=== PATIENT | male | born 1940 | race Caucasian/White ===

== ENCOUNTER 2018-09-20 11:47 | Inpatient (IN) ==
--- NOTE | 2018-09-20 12:00 | Emergency Department Note ---
SOB HPI - General Chief Complaint: Shortness of Breath/Dyspnea Stated Complaint: high BP, swelling, SOB Time Seen by Provider: 09/20/18 11:52 Source: patient Mode of arrival: wheelchair Limitations: no limitations - History of Present Illness I spoke with Dr. Gutiérrez regarding this patient who reports patient's primary care provider is Sam Chilel at the [facility]. Patient has morbid obesity, COPD, pulmonary fibrosis on a CT scan from January 2017, hypertension, diastolic failure. He had a echo and nuclear stress in spring 2016 which demonstrates right-sided failure with large enlarged IVC, no ischemia but suboptimal. Dr. Gutiérrez reports that patient has not been good at taking his furosemide 20 twice daily nor is chlorthalidone 25. He also takes potassium, metoprolol ER 25 daily, amlodipine 5 daily, losartan 100 daily, metformin 500, gabapentin. He is being sent because of 86% on room air, quite short of breath, 4+ edema up to and above the knee with weeping through his jeans. No history of being on anticoagulation or atrial fibrillation. EKG from May is being sent. Patient reports that he has had some gradual shortness of breath that has become more significant in the last 1 month but says that he can be active most the time out doing things. however, reports that he does a lot of sitting and sleeping in his chair. He has had swelling in the lower extremities for a year with a gradual increase in the amount and severity and the weepiness. He reports checking his blood pressures every morning and they are 125-130/70-75, blood sugars he checks less often and recent was 150. He believes his weight has not changed a whole lot usually around 280 but may be sometimes to 88. REVIEW OF SYSTEMS: Denies chest pain, cough, nausea, vomiting, diarrhea, constipation, hematochezia. A little weakness in his legs. Some mild dizziness or lightheadedness. Denies anxiety and depression although his thinks he may have some of both. He uses a CPAP at night without oxygen. - Related Data Previous Rx's Medication Instructions Recorded aspirin 81 mg tablet,delayed 81 mg PO QDAY #90 tab 03/15/15 release bisoprolol fumarate 5 mg tablet 5 mg PO QDAY #30 tab 03/29/15 gabapentin 300 mg capsule 300 mg PO Q8H 90 Days #270 cap 04/26/15 losartan 100 mg tablet 100 mg PO QDAY #90 tab 04/26/15 spironolactone 25 mg tablet 25 mg PO QDAY 90 Days #90 tab 04/26/15 metformin 1,000 mg tablet 500 mg PO QDAY 90 Days #45 tab 05/15/15 chlorhexidine gluconate 4 % 1 applic TOPICAL .COMPLEX #3800 ml 06/06/15 topical liquid furosemide 20 mg tablet 40 mg PO BID 90 Days #360 tab 06/28/15 dextromethorphan-guaifenesin 10 1 cap PO QDAY #30 cap 07/05/15 mg-200 mg capsule metolazone 2.5 mg tablet 2.5 mg PO QDAY #30 tab 08/09/15 Allergies Allergy/AdvReac Type Severity Reaction Status Date / Time Ygywsrs-Hof-Xew Reductase AdvReac Severe other Verified 09/20/18 11:53 Inhibitor Past Medical History - Past Medical History [facility] Narrative: Medical History (Last Updated 09/20/18 @ 12:49 by Jovanni Saleem DO) VALENTE on CPAP (Chronic) Pulmonary fibrosis (Chronic) COPD (chronic obstructive pulmonary disease) (Chronic) Shortness of Breath (Chronic) Venous stasis dermatitis (Chronic) Microalbuminuria (Chronic) Diastolic heart failure (Chronic) Morbid obesity (Chronic) Asymptomatic proteinuria (Chronic) Diabetic neuropathy (Chronic) Hyperlipidemia (Chronic) Prostate cancer (Chronic) Hypertension, essential (Chronic) Diabetes mellitus, type II (Chronic) Cellulitis and abscess (Resolved) Past Surgical History (Last Updated 09/20/18 @ 11:55 by Jovanni Saleem DO) History of prostate surgery (Resolved) Hx of foot surgery (Resolved) Family History father Essential hypertension Acute myocardial infarction Other Cellulitis and abscess History of prostate surgery Hx of foot surgery Medical history: Denies: atrial fibrillation, CVA, myocardial infarction - Social History smoking status: Former smoker Physical Exam Limitations: no limitations General appearance: alert, in no apparent distress Head: atraumatic, normocephalic Eye: Present: EOMI ENT: normal oropharynx Neck: Present: trachea midline. Absent: lymphadenopathy, thyromegaly Chest: Present: symmetric chest wall rise Respiratory: Present: normal lung sounds bilaterally. Absent: respiratory distress, wheezes, stridor, accessory muscle use, prolonged expiratory phase Cardiovascular: Present: regular rate, normal rhythm, systolic murmur. Absent: diastolic murmur Type of murmur: systolic, blowing (very soft) Location of murmur: LLSB Intensity of murmur: /6 Abdominal: Present: soft, other (very large). Absent: distention, tenderness, guarding, rebound, rigidity, organomegaly, mass Extremities: Present: pedal edema, pretibial edema (3/4 to knees and slight above.). Absent: calf tenderness Neurological: Present: alert, oriented X3 Psychiatric: Present: normal affect, normal mood Skin: Present: warm, dry Course Vital Signs Temperature 97.8 F 09/20/18 11:49 Pulse Rate 80 09/20/18 11:49 Respiratory Rate 28 H 09/20/18 11:49 Blood Pressure 155/72 09/20/18 11:49 Pulse Oximetry (%) 84 L 09/20/18 11:49 Temperature 97.8 F 09/20/18 11:49 Pulse Rate 96 H 09/20/18 17:01 Respiratory Rate 34 H 09/20/18 17:01 Blood Pressure 136/93 09/20/18 16:47 Pulse Oximetry (%) 89 L 09/20/18 17:01 Shortness of Breath/Dyspnea - MDM Narrative Medical decision making narrative: 12:33 PM - diastolic failure CHF exacerbation with hypoxia at 86%. We will provide oxygen, do labs and ABGs, x-ray, EKG. Furosemide 40 mg IV with placing catheter. - Lab Data Lab results reviewed: Yes I reviewed the patient's lab results. Result diagrams: 09/20/18 12:05 09/20/18 12:05 Lab Results 09/20/18 09/20/18 09/20/18 Range/Units 11:57 12:05 12:05 WBC 14.4 H (4.5-11.0) K/mcL RBC 6.26 H (4.50-5.90) M/mcL Hgb 14.5 (13.5-16.5) g/dL Hct 46.9 (41.0-55.0) % MCV 74.9 L (80.0-100.0) fL MCH 23.2 L (26.0-34.0) pg MCHC 30.9 L (31.0-36.0) g/dL RDW 20.6 H (11.5-14.5) % Plt Count 305 (140-440) K/mcL MPV 9.3 (7.4-10.4) fL Gran % 85.1 H (38.0-78.0) % Lymph % (Auto) 7.0 L (15.5-49.0) % Person % (Auto) 6.4 (1.0-12.0) % Eos % (Auto) 1.1 (0.0-7.0) % Baso % (Auto) 0.4 (0.0-2.0) % Gran # 12.2 H (1.8-8.0) K/mcL Lymph # (Auto) 1.0 L (1.5-4.8) K/mcL Person # (Auto) 0.9 (0.1-0.9) K/mcL Eos # (Auto) 0.2 (0.0-0.7) K/mcL Baso # (Auto) 0.1 (0.0-0.3) K/mcL D-Dimer 0.52 H (0.00-0.40) ug/ml VBG Lactic Acid (0.5-2.0) mmol/L Sodium 144 (133-145) mmol/L Potassium 4.1 (3.3-5.1) mmol/L Chloride 99 (96-108) mmol/L Carbon Dioxide 31 H (22-30) mmol/L Anion Gap 14.0 (8-16) BUN 20 (8-23) mg/dl Creatinine 1.0 (0.7-1.2) mg/dl GFR Calculation 73 Glucose 121 H (70-105) mg/dL Calcium 9.5 (8.6-10.4) mg/dl Magnesium 2.1 (1.6-2.5) mg/dL Total Bilirubin 0.3 (0.0-1.0) mg/dL AST 16 (0-37) U/l ALT 16 (0-40) U/l Alkaline Phosphatase 65 (39-117) U/L Total Creatine Kinase 56 (24-195) IU/L CK-MB (CK-2) 3.3 (0-4.9) ng/ml Troponin T (0-0.03) ng/ml NT-Pro-B Natriuret Pep 462.2 H (0-450) pg/ml Total Protein 7.5 (5.9-8.4) gm/dL Albumin 3.5 (3.2-5.2) gm/dL Globulin 4.0 H (2.2-3.7) gm/dL Albumin/Globulin Ratio 0.9 L (1.0-2.3) Procalcitonin (<0.10) ng/mL Urine Color Urine Appearance Urine pH (5.0-9.0) Ur Specific [place] (1.000-1.035) Urine Protein (NEG) mg/dL Urine Glucose (UA) (NEG) mg/dL Urine Ketones (NEG) mg/dL Urine Occult Blood (<0.03) mg/dL Urine Nitrate (NEG) Urine Bilirubin (NEG) mg/dL Urine Urobilinogen (NEG) mg/dL Ur Leukocyte Esterase (NEG) /uL Urine RBC (0-1) /hpf Urine WBC (0-4) /hpf Ur Squamous Epith Cells (0-4) /hpf Urine Bacteria (0) /hpf Urine Mucus (0) /hpf Ur Culture Indicated? 09/20/18 09/20/18 09/20/18 Range/Units 12:05 12:05 12:05 WBC (4.5-11.0) K/mcL RBC (4.50-5.90) M/mcL Hgb (13.5-16.5) g/dL Hct (41.0-55.0) % MCV (80.0-100.0) fL MCH (26.0-34.0) pg MCHC (31.0-36.0) g/dL RDW (11.5-14.5) % Plt Count (140-440) K/mcL MPV (7.4-10.4) fL Gran % (38.0-78.0) % Lymph % (Auto) (15.5-49.0) % Person % (Auto) (1.0-12.0) % Eos % (Auto) (0.0-7.0) % Baso % (Auto) (0.0-2.0) % Gran # (1.8-8.0) K/mcL Lymph # (Auto) (1.5-4.8) K/mcL Person # (Auto) (0.1-0.9) K/mcL Eos # (Auto) (0.0-0.7) K/mcL Baso # (Auto) (0.0-0.3) K/mcL D-Dimer (0.00-0.40) ug/ml VBG Lactic Acid 1.0 (0.5-2.0) mmol/L Sodium (133-145) mmol/L Potassium (3.3-5.1) mmol/L Chloride (96-108) mmol/L Carbon Dioxide (22-30) mmol/L Anion Gap (8-16) BUN (8-23) mg/dl Creatinine (0.7-1.2) mg/dl GFR Calculation Glucose (70-105) mg/dL Calcium (8.6-10.4) mg/dl Magnesium (1.6-2.5) mg/dL Total Bilirubin (0.0-1.0) mg/dL AST (0-37) U/l ALT (0-40) U/l Alkaline Phosphatase (39-117) U/L Total Creatine Kinase (24-195) IU/L CK-MB (CK-2) (0-4.9) ng/ml Troponin T 0.01 (0-0.03) ng/ml NT-Pro-B Natriuret Pep (0-450) pg/ml Total Protein (5.9-8.4) gm/dL Albumin (3.2-5.2) gm/dL Globulin (2.2-3.7) gm/dL Albumin/Globulin Ratio (1.0-2.3) Procalcitonin < 0.10 (<0.10) ng/mL Urine Color Urine Appearance Urine pH (5.0-9.0) Ur Specific [place] (1.000-1.035) Urine Protein (NEG) mg/dL Urine Glucose (UA) (NEG) mg/dL Urine Ketones (NEG) mg/dL Urine Occult Blood (<0.03) mg/dL Urine Nitrate (NEG) Urine Bilirubin (NEG) mg/dL Urine Urobilinogen (NEG) mg/dL Ur Leukocyte Esterase (NEG) /uL Urine RBC (0-1) /hpf Urine WBC (0-4) /hpf Ur Squamous Epith Cells (0-4) /hpf Urine Bacteria (0) /hpf Urine Mucus (0) /hpf Ur Culture Indicated? 09/20/18 Range/Units 13:19 WBC (4.5-11.0) K/mcL RBC (4.50-5.90) M/mcL Hgb (13.5-16.5) g/dL Hct (41.0-55.0) % MCV (80.0-100.0) fL MCH (26.0-34.0) pg MCHC (31.0-36.0) g/dL RDW (11.5-14.5) % Plt Count (140-440) K/mcL MPV (7.4-10.4) fL Gran % (38.0-78.0) % Lymph % (Auto) (15.5-49.0) % Person % (Auto) (1.0-12.0) % Eos % (Auto) (0.0-7.0) % Baso % (Auto) (0.0-2.0) % Gran # (1.8-8.0) K/mcL Lymph # (Auto) (1.5-4.8) K/mcL Person # (Auto) (0.1-0.9) K/mcL Eos # (Auto) (0.0-0.7) K/mcL Baso # (Auto) (0.0-0.3) K/mcL D-Dimer (0.00-0.40) ug/ml VBG Lactic Acid (0.5-2.0) mmol/L Sodium (133-145) mmol/L Potassium (3.3-5.1) mmol/L Chloride (96-108) mmol/L Carbon Dioxide (22-30) mmol/L Anion Gap (8-16) BUN (8-23) mg/dl Creatinine (0.7-1.2) mg/dl GFR Calculation Glucose (70-105) mg/dL Calcium (8.6-10.4) mg/dl Magnesium (1.6-2.5) mg/dL Total Bilirubin (0.0-1.0) mg/dL AST (0-37) U/l ALT (0-40) U/l Alkaline Phosphatase (39-117) U/L Total Creatine Kinase (24-195) IU/L CK-MB (CK-2) (0-4.9) ng/ml Troponin T (0-0.03) ng/ml NT-Pro-B Natriuret Pep (0-450) pg/ml Total Protein (5.9-8.4) gm/dL Albumin (3.2-5.2) gm/dL Globulin (2.2-3.7) gm/dL Albumin/Globulin Ratio (1.0-2.3) Procalcitonin (<0.10) ng/mL Urine Color Yellow Urine Appearance Clear Urine pH 5.0 (5.0-9.0) Ur Specific [place] 1.017 (1.000-1.035) Urine Protein Neg (NEG) mg/dL Urine Glucose (UA) >=500 A (NEG) mg/dL Urine Ketones Neg (NEG) mg/dL Urine Occult Blood Neg (<0.03) mg/dL Urine Nitrate Neg (NEG) Urine Bilirubin Neg (NEG) mg/dL Urine Urobilinogen Neg (NEG) mg/dL Ur Leukocyte Esterase Neg (NEG) /uL Urine RBC 2 H (0-1) /hpf Urine WBC 0 (0-4) /hpf Ur Squamous Epith Cells < 1 (0-4) /hpf Urine Bacteria 0 (0) /hpf Urine Mucus Few (0) /hpf Ur Culture Indicated? No - Radiology Data Radiology results reviewed: Yes I reviewed the patient's radiology results. - EKG Data EKG results narrative: No acute coronary syndrome findings. This ECG will be read by a public health social worker. Disposition Pt seen by ELECTROSTATIC POWDER COATING TECHNICIAN/PA only: No Clinical Impression: Acute on chronic diastolic CHF (congestive heart failure), Hypoxia, RBC microcytosis Summary: Patient initially diuresed close to 1800 cc. An additional furosemide 20 mg dose was given (initial dose was 40 mg) and an additional 900 cc was removed. Patient remained with hypoxia, i.e., 87-88% when he is placed on room air. Af ter much discussion, convincing, even pleading, patient agrees to stay. This is necessary because of his hypoxia, needing additional diuresis, monitoring electrolytes, etc. I spoke with Dr. Tom, hospitalist, who kindly accepts this patient's care. His white count of 14.4 does not seem remarkable in light of previous white blood cells in the 11-12 range consistently. He is not anemic but has a microcytosis. Patient labs are listed as above with no specific cardiac findings. BNP was 462. D-dimer was 0.56 which is appropriate for age and circumstance. Pro-calcitonin was unremarkable at less than 0.10. Lactic acid was 1.0. Glucose was 121. CO2 was 31. ABG demonstrates low oxygen, normal pH, elevated bicarb; indicating chronic CO2 retainer. Patient has a history of sleep apnea on CPAP. Disposition: Xfer As Inpt ([facility]) Condition: Fair Referrals: Isabel Tom MD [Primary Care Provider] -
[2018-09-20] MEDS ORDERED: IPRATROPIUM/ALBUTEROL 3 ML AMPUL.NEB NEB ONE (12:16)
--- NOTE | 2018-09-20 12:29 | XRay Report ---
CLINICAL INFORMATION: dyspnea COMPARISON: 07/13/2009 FINDINGS: Moderate cardiomegaly is unchanged. Mediastinum is unremarkable. Pulmonary vessels are mildly distended in the the upper lungs. No definite edema. There is minor bibasilar atelectasis but no infiltrate. Suboptimal inspiratory result noted IMPRESSION: Mild CHF or volume overload Interpreted and Authenticated by: Cristian Chamorro 09/20/18
[2018-09-20] MEDS ORDERED: FUROSEMIDE 40 MG/4 ML VIAL IV ONE (12:49)
[2018-09-20 12:55] LABS: Basophils # (Auto) 0.1 K/mcL (0.0-0.3); Basophils % (Auto) 0.4 % (0.0-2.0); Eosinophils # (Auto) 0.2 K/mcL (0.0-0.7); Eosinophils % (Auto) 1.1 % (0.0-7.0); Granulocytes % (Auto) 85.1 % (38.0-78.0); Mean Cell Volume 74.9 fL (80.0-100.0); Mean Corpuscular HGB Conc 30.9 g/dL (31.0-36.0); Monocytes # (Auto) 0.9 K/mcL (0.1-0.9); Monocytes % (Auto) 6.4 % (1.0-12.0); Platelet Count 305 K/mcL (140-440); RBC 6.26 M/mcL (4.50-5.90); Red Cell Distribution Width 20.6 % (11.5-14.5)
[2018-09-20 13:13] LABS: ALT/SGPT 16 U/l (0-40); Albumin 3.5 gm/dL (3.2-5.2); Albumin/Globulin Ratio 0.9 (1.0-2.3); Alkaline Phosphatase 65 U/L (39-117); Blood Urea Nitrogen 20 mg/dl (8-23); Creatine Kinase 56 IU/L (24-195); Creatine Kinase MB 3.3 ng/ml (0-4.9); proBNP 462.2 pg/ml (0-450)
[2018-09-20 13:49] LABS: Appearance,Urine CLEAR; Bacteria,Urine 0 /hpf (0); Bilirubin,Urine NEG (NEG); Color,Urine YELLOW; Glucose,Urine (UA) >=500 mg/dL (NEG); Leukocyte Esterase,Urine NEG /uL (NEG); Mucus,Urine FEW /hpf (0); Protein,Urine NEG (NEG); Specific Gravity,Urine 1.017 (1.000-1.035); Urine Blood NEG mg/dL (<0.03); Urine RBC 2 /hpf (0-1); Urine Squamous Epithelial Cell < 1 /hpf (0-4); Urine WBC 0 /hpf (0-4); Urobilinogen,Urine NEG (NEG)
[2018-09-20] MEDS ORDERED: POTASSIUM CHLORIDE 10 MEQ TABLET PO ONE ×2 (14:57→16:06)
[2018-09-20] MEDS ORDERED: FUROSEMIDE 20 MG/2 ML VIAL IV ONE (16:06)
[2018-09-20] MEDS ORDERED: ONDANSETRON 4 MG/2 ML VIAL IV PRN (18:57)
[2018-09-20] MEDS ORDERED: ACETAMINOPHEN 325 MG TABLET PO PRN (18:57)
[2018-09-20] MEDS ORDERED: HYDROcodone/APAP 5/325MG TABLET PO PRN (18:57)
[2018-09-20] MEDS ORDERED: NALOXONE HCL 0.4 MG/ML VIAL IV PRN (18:57)
[2018-09-20] MEDS: IPRATROPIUM/ALBUTEROL 3 ML AMPUL.NEB NEB SCH (19:51)
--- NOTE | 2018-09-20 20:40 | Internal Med History&Physical ---
Medical - H&P: HPI Patient information: Note initiated : 09/20/18 at 8:34 pm Service Date, if different from initiated Date: [] Patient: Yaakov Jacobson a 77 y/o M admitted on 09/20/18 for high BP, swelling, SOB. Chief Complaint: [] History of present illness: Mr. Jacobson is a 77 year old M with h/o pulmonary hypertensino, diastolic heart failure, notoriously non compliant with meds presents to the ER after being sent there by Dr Gutiérrez for evaluation of shortness of breath and hypoxia. This is a pleasant 77-year-old gentleman with history of multiple medical issues, comes to the hospital today after being seen in the cardiology clinic for evaluation of shortness of breath. He is also had edema in his lower extre mities and weeping lower extremity wounds. The patient notes he was here for his routine follow-up with cardiology when he was noted to be hypoxic, the patient reports his fingers being cyanotic, and him being short of breath he was therefore sent to the emergency room for further evaluation. The patient admits to being short of breath and having increased swelling over the last few days to weeks, he is noncompliant with diet, has a high salt intake and does not take his diuretics as prescribed. The patient admits to having runny nose and watery eyes, subjective sensation of fever going on for the last few days. He wears a compression stockings and his helps him manage his lower extre mities. I am not sure how much of his chronic medications he has been compliant with. [place] The patient denies any headache changes in vision difficulty in swallowing chest pain admits to having shortness of breath, denies any nausea vomiting abdominal pain diarrhea constipation denies any new joint pains, has lower extremity edema which is chronic and chronic weeping wounds. In the emergency room initially patient was afebrile however later developed a temperature of 100.6, heart rate 86 blood pressure 136/77 respirations anywhere between 28-35 saturating 8693% on 2 L of oxygen. ABG drawn shows pH of 7.39 PCO2 58 PO2 of 54 on 2 L of oxygen. Echocardiogram done in the past shows moderate to severe pulmonary hypertension, nuclear stress test was negative testing done within 2 years. Chest x-ray shows mild CHF versus fluid overload. EKG shows sinus rhythm poor R wave progression. WBC is elevated at 14.4 hemoglobin 14.5 platelets 305 sodium 144 potassium 4.1 bicarbonate 31 creatinine 1.0 glucose 121 calcitonin is less than 0.10 lactic acid 1.0 troponin is negative BNP mildly elevated at 462 UA is negative for UTI Given lower extrmity weeping edema/cellulitis, chf, fluid overload and hypoxia, pt is being admitted to the hospital for further management 2 rounds of diuretics with good response was done in the ER without much improvement in oxygenation. All systems: reviewed and no additional remarkable complaints except as stated (as per HPI rest negative.) Medical - H&P: H Medical history: Medical History (Last Updated 09/20/18 @ 12:49 by Jovanni Saleem DO) VALENTE on CPAP (Chronic) Pulmonary fibrosis (Chronic) COPD (chronic obstructive pulmonary disease) (Chronic) Shortness of Breath (Chronic) Venous stasis dermatitis (Chronic) Microalbuminuria (Chronic) Diastolic heart failure (Chronic) Morbid obesity (Chronic) Asymptomatic proteinuria (Chronic) Diabetic neuropathy (Chronic) Hyperlipidemia (Chronic) Prostate cancer (Chronic) Hypertension, essential (Chronic) Diabetes mellitus, type II (Chronic) Cellulitis and abscess (Resolved) Surgical history: Past Surgical History (Last Updated 09/20/18 @ 11:55 by Jovanni Saleem DO) History of prostate surgery (Resolved) Hx of foot surgery (Resolved) Pertinent family history: Family History father Essential hypertension Acute myocardial infarction Other Cellulitis and abscess History of prostate surgery Hx of foot surgery Medical - H&P: Meds Home Medications Medication Instructions Recorded Confirmed Type aspirin 81 mg tablet,delayed 81 mg PO QDAY #90 tab 03/15/15 09/20/18 Rx release gabapentin 300 mg capsule 300 mg PO Q8H 90 Days #270 cap 04/26/15 09/20/18 Rx losartan 100 mg tablet 100 mg PO QDAY #90 tab 04/26/15 09/20/18 Rx metformin 1,000 mg tablet 500 mg PO QDAY 90 Days #45 tab 05/15/15 09/20/18 Rx chlorhexidine gluconate 4 % 1 applic TOPICAL .COMPLEX #3800 ml 06/06/15 09/20/18 Rx topical liquid furosemide 20 mg tablet 40 mg PO BID 90 Days #360 tab 06/28/15 09/20/18 Rx Chlorthalidone 25 mg PO DAILY 09/20/18 09/20/18 History Dapagliflozin Propanediol [Farxiga] 5 mg PO DAILY 09/20/18 09/20/18 History Doxycycline Hyclate [Vibramycin] 100 mg PO BID 09/20/18 09/20/18 History Losartan Potassium 100 mg PO AC 09/20/18 09/20/18 History Metoprolol Succinate [Kapspargo 25 mg PO HS 09/20/18 09/20/18 History Sprinkle] Potassium Chloride [Kdur] 10 meq PO ONCE 09/20/18 09/20/18 History amLODIPine [Norvasc] 5 mg PO HS 09/20/18 09/20/18 History Allergies Allergy/AdvReac Type Severity Reaction Status Date / Time Rgttjdd-Lrv-Shv Reductase AdvReac Severe other Verified 09/20/18 11:53 Inhibitor Medical - H&P: Exam - Constitutional Vitals: Temp Pulse Resp BP Pulse Ox 100.6 F H 81 21 150/73 93 09/20/18 19:59 09/20/18 19:58 09/20/18 19:59 09/20/18 19:59 09/20/18 19:59 Exam: GENERAL: The patient is a well-developed, well-nourished in no apparent distress. Is alert and oriented x3. morbidly obese VITAL SIGNS: Reviewed and as noted elsewhere. HEENT: Head is normocephalic and atraumatic. Extraocular muscles are intact. Pupils are equal, round, and reactive to light. Nares appeared normal. Mouth a ppears any without lesions. Mucous membranes are moist. NECK: Normal to inspection, Supple, No lymphadenopathy or thyromegaly. LUNGS: Air entry equal on both sides, no wheezing, crackles or rhonchi noted. No accessory muscles of respiration HEART: Regular rate and rhythm normal, S1 and S2 heard, no Gallop, S3 or Rub Noted, No Gross murmur heard. ABDOMEN: Soft, nontender, and distended abdomen due to large pannus, Positive bowel sounds. No hepatosplenomegaly was noted. EXTREMITIES: No cyanosis, clubbing, rash, lesions ,edema ++++, [place] lower extremity erythema, blistering and weeping. I reviewed the picutres, taken on admission, pt legs were on compression stockings. NEUROLOGIC: Cranial nerves II through XII are grossly intact. Motor and Sensory System Grossly Intact PSYCHIATRIC: Normal affect, Normal Mood. Appropriate Behavior. SKIN: , No jaundice, No rash noted. Medical - H&P: Reslt - Labs CBC & Chem 7: 09/20/18 12:05 09/20/18 12:05 Labs: Short CBC 09/20/18 Range/Units 12:05 WBC 14.4 H (4.5-11.0) K/mcL Hgb 14.5 (13.5-16.5) g/dL Hct 46.9 (41.0-55.0) % Plt Count 305 (140-440) K/mcL BMP 09/20/18 12:05 Sodium 144 Potassium 4.1 Chloride 99 Carbon Dioxide 31 H BUN 20 Creatinine 1.0 Glucose 121 H Calcium 9.5 Cardiac Enzymes 09/20/18 09/20/18 Range/Units 12:05 12:05 Total Creatine Kinase 56 (24-195) IU/L CK-MB (CK-2) 3.3 (0-4.9) ng/ml Troponin T 0.01 (0-0.03) ng/ml Liver Function 09/20/18 Range/Units 12:05 Total Bilirubin 0.3 (0.0-1.0) mg/dL AST 16 (0-37) U/l ALT 16 (0-40) U/l Alkaline Phosphatase 65 (39-117) U/L Albumin 3.5 (3.2-5.2) gm/dL Urine 09/20/18 Range/Units 13:19 Urine Color Yellow Urine Appearance Clear Urine pH 5.0 (5.0-9.0) Ur Specific [place] 1.017 (1.000-1.035) Urine Protein Neg (NEG) mg/dL Urine Glucose (UA) >=500 A (NEG) mg/dL Medical - H&P: A/P - Narrative A/P Narrative: A/P Diastolic heart failure Acute Cor pulmonale Morbid obesity Cellulitis Edema with venous statsis NOn compliance with meds COPD VALENTE, on cpap DM Plan Admit to tele IV lasix, add metollozone before lasix aggressive diuresis In the past pt has responded well to antibiotics when his legs were infected, will start on zyvox 600mg bid for same, cellulitis likely explains the elevated wbc monitor I/O CPAP during sleep Resume home meds as appropriate, hold metformin. DVT hep sq Diet cardiac Full code. Medical - H&P: Qual - VTE Deep Vein Thrombosis/Pulmonary Embolism Present on Admission: No Social History - Tobacco smoking status: Former smoker - Alcohol alcohol intake frequency: does not drink - Substance use substance use type: does not use
[2018-09-20] MEDS: HEPARIN 5,000 UNIT/ML VIAL SQ SCH (21:10)
[2018-09-20] MEDS: LINEZOLID 600 MG TABLET PO SCH (21:10)
[2018-09-20] MEDS: 0.9 % SODIUM CHLORIDE 10 ML SYRINGE IV SCH (21:11)
[2018-09-20] MEDS: GABAPENTIN 300 MG CAPSULE PO SCH (21:11)
[2018-09-21] MEDS: IPRATROPIUM/ALBUTEROL 3 ML AMPUL.NEB NEB SCH ×4 (00:49→18:55)
[2018-09-21] MEDS: 0.9 % SODIUM CHLORIDE 10 ML SYRINGE IV SCH ×3 (05:44→20:42)
[2018-09-21] MEDS: GABAPENTIN 300 MG CAPSULE PO SCH ×3 (05:44→21:24)
[2018-09-21 06:22] LABS: ALT/SGPT 13 U/l (0-40); Albumin 3.2 gm/dL (3.2-5.2); Albumin/Globulin Ratio 0.8 (1.0-2.3); Alkaline Phosphatase 65 U/L (39-117); Bilirubin,Direct < 0.2 mg/dL (0.0-0.3); Blood Urea Nitrogen 23 mg/dl (8-23); Gamma Glutamyl Transpeptidase 62 U/L (8-61); Uric Acid 5.7 mg/dL (2.5-8.0)
[2018-09-21 06:26] LABS: Basophils # (Auto) 0 K/mcL (0.0-0.3); Basophils % (Auto) 0.2 % (0.0-2.0); Eosinophils # (Auto) 0.1 K/mcL (0.0-0.7); Eosinophils % (Auto) 0.7 % (0.0-7.0); Lymphocytes % (Auto) 6.8 % (15.5-49.0); Mean Cell Volume 75.4 fL (80.0-100.0); Mean Corpuscular HGB Conc 30.3 g/dL (31.0-36.0); Monocytes # (Auto) 1.1 K/mcL (0.1-0.9); Monocytes % (Auto) 7.3 % (1.0-12.0); Platelet Count 297 K/mcL (140-440); RBC 6.06 M/mcL (4.50-5.90); Red Cell Distribution Width 20.7 % (11.5-14.5)
[2018-09-21] MEDS: METOLAZONE 2.5 MG TABLET PO SCH ×2 (07:35→15:32)
[2018-09-21] MEDS: FUROSEMIDE 40 MG/4 ML VIAL IV SCH ×2 (07:51→16:18)
[2018-09-21] MEDS: ASPIRIN 81 MG TAB.CHEW PO SCH (09:05)
[2018-09-21] MEDS: LINEZOLID 600 MG TABLET PO SCH ×2 (09:05→20:41)
[2018-09-21] MEDS: LOSARTAN 50 MG TABLET PO SCH (09:05)
[2018-09-21] MEDS: HEPARIN 5,000 UNIT/ML VIAL SQ SCH ×2 (09:06→20:41)
[2018-09-21] MEDS ORDERED: DEXTROSE 31 GM ORAL.SUSP PO PRN (10:46)
[2018-09-21] MEDS ORDERED: DEXTROSE 50% 50 ML VIAL IV PRN (10:46)
[2018-09-21] MEDS: LEVOFLOXACIN 750 MG TABLET PO SCH (11:11)
[2018-09-21] MEDS: INSULIN LISPRO 1 UNIT/0.01 ML UNIT SQ SCH ×3 (11:24→20:44)
--- NOTE | 2018-09-21 12:21 | Internal Med Progress Note ---
Medical - PN: Subj Patient information: Note initiated : 09/21/18 at 12:17 pm Service Date, if different from initiated Date: [] Patient: Yaakov Jacobson a 77 y/o M admitted on 09/20/18 for high BP, swelling, SOB. Chief Complaint: [] Interval history: Mr. Jacobson is a 77 year old M with h/o pulmonary hypertensino, diastolic heart failure, notoriously non compliant with meds presents to the ER after being sent there by Dr Gutiérrez for evaluation of shortness of breath and hypoxia. This is a pleasant 77-year-old gentleman with history of multiple medical issues, comes to the hospital today after being seen in the cardiology clinic for evaluation of shortness of breath. He is also had edema in his lower extremities and weeping lower extremity wounds. The patient notes he was here for his routine follow-up with cardiology when he was noted to be hypoxic, the patient reports his fingers being cyanotic, and him being short of breath he was therefore sent to the emergency room for further evaluation. The patient admits to being short of breath and having increased swelling over the last few days to weeks, he is noncompliant with diet, has a high salt intake and does not take his diuretics as prescribed. The patient admits to having runny nose and watery eyes, subjective sensation of fever going on for the last few days. He wears a compression stockings and his helps him manage his lower extremities. I am not sure how much of his chronic medications he has been compliant with. [place] The patient denies any headache changes in vision difficulty in swallowing chest pain admits to having shortness of breath, denies any nausea vomiting abdominal pain diarrhea constipation denies any new joint pains, has lower extremity edema which is chronic and chronic weeping wounds. In the emergency room initially patient was afebrile however later developed a temperature of 100.6, heart rate 86 blood pressure 136/77 respirations anywhere between 28-35 saturating 8693% on 2 L of oxygen. ABG drawn shows pH of 7.39 PCO2 58 PO2 of 54 on 2 L of oxygen. Echocardiogram done in the past shows moderate to severe pulmonary hypertension, nuclear stress test was negative testing done within 2 years. Chest x-ray shows mild CHF versus fluid overload. EKG shows sinus rhythm poor R wave progression. WBC is elevated at 14.4 hemoglobin 14.5 platelets 305 sodium 144 potassium 4.1 bicarbonate 31 creatinine 1.0 glucose 121 calcitonin is less than 0.10 lactic acid 1.0 troponin is negative BNP mildly elevated at 462 UA is negative for UTI Given lower extrmity weeping edema/cellulitis, chf, fluid overload and hypoxia, pt is being admitted to the hospital for further management 2 rounds of diuretics with good response was done in the ER without much improvement in oxygenation. 09/21 Patient seen and examined, no acute overnight events. I spoke with his in length. She was concerned about the patient's change in behavior, over the last 3 months. Patient has been sleeping in his recliner. There has been progressive increase in his edema as well as noncompliance with medications. There is also have been change in the patient's behavior towards the patient's and which is more aggressive and agitated. There has been some deaths in the family recently. She is concerned that the patient may also be depressed Pertinent ROS: Denies headache, dizziness Denies chest pain, palpitations improved shortness of breath. Denies abdominal pain, nausea or vomiting. - Constitutional Vitals: Vital Signs Temp Pulse Resp BP Pulse Ox 98.6 F 74 16 119/68 92 09/21/18 07:18 09/21/18 07:25 09/21/18 07:25 09/21/18 07:18 09/21/18 07:39 Period Temp Pulse Resp BP Sys/Wood Pulse Ox Last 24 Hr 97.8 F-100.6 F 66-96 14-35 102-180/51-102 18-98 Intake and Output 09/20/18 09/21/18 09/21/18 21:59 05:59 13:59 Intake Total 1060 / 1060 860 / 860 Output Total 1050 / 1050 1675 / 1675 Balance 815 / -815 Weight 278 lb Intake & Output: Intake & Output 09/20/18 09/21/18 09/21/18 21:59 05:59 13:59 Intake Total 1060 / 1060 860 / 860 Output Total 1050 / 1050 1675 / 1675 Balance -815 / -815 Weight 278 lb Intake: Oral 1060 / 1060 860 / 860 Output: Urine Catheter Amount 1050 / 1050 1675 / 1675 Other: Meal Dinner Breakfast Percent of Meal Consumed 50% 100% Feeding Ability Independent Independent Urine Appearance Clear Uretheral (Paulino) Clear Clear Urine Color Pale Uretheral (Paulino) Pale Light Tanya Exam: Constitutional; Afebrile, cooperative, alert, not in distress. Eyes- No icterus, , No periorbital swelling Ears- Ext ear normal, hearing normal to conversation. Neck- Midline trachea, supple Respiratory system: Air Entry equal on both sides, No crackles or wheezing, no rhonchi. CVS- Rate rhythm regular, S1,S2 heard, no gallop, no rub. Abdomen- Soft nontender abdomen, no organomegaly, no tenderness, no guarding or rigidity, [employer]- AOOx3, moving all extremities, no gross focal deficit noted. Medical - PN: Obj Da - Labs CBC & Chem 7: 09/21/18 03:44 09/21/18 03:44 Labs: Abnormal Lab Results 09/21/18 09/21/18 09/20/18 03:44 03:44 13:19 WBC 14.4 H RBC 6.06 H MCV 75.4 L MCH 22.8 L MCHC 30.3 L RDW 20.7 H Gran % 85.0 H Lymph % (Auto) 6.8 L Gran # 12.2 H Lymph # (Auto) 1.0 L [place] # (Auto) 1.1 H D-Dimer Carbon Dioxide 31 H Glucose 121 H Phosphorus 5.0 H GGT 62 H NT-Pro-B Natriuret Pep Globulin 3.9 H Albumin/Globulin Ratio 0.8 L Urine Glucose (UA) >=500 A Urine RBC 2 H 09/20/18 09/20/18 09/20/18 12:05 12:05 11:57 WBC 14.4 H RBC 6.26 H MCV 74.9 L MCH 23.2 L MCHC 30.9 L RDW 20.6 H Gran % 85.1 H Lymph % (Auto) 7.0 L Gran # 12.2 H Lymph # (Auto) 1.0 L [place] # (Auto) D-Dimer 0.52 H Carbon Dioxide 31 H Glucose 121 H Phosphorus GGT NT-Pro-B Natriuret Pep 462.2 H Globulin 4.0 H Albumin/Globulin Ratio 0.9 L Urine Glucose (UA) Urine RBC Meds: Medications Acetaminophen (Tylenol) 650 mg PO Q6HP PRN PRN Reason: PAIN/FEVER > 101 Hydrocodone Bitart/Acetaminophen (Rogers 5/325mg) 1 tab PO Q4HP PRN PRN Reason: pain not controlled with APAP. Albuterol/Ipratropium (Duoneb) 3 ml NEB Q6HRT [facility] Last Admin: 09/21/18 07:21 Dose: 3 ml Documented by: Aspirin (Aspirin) 81 mg PO DAILY [facility] Last Admin: 09/21/18 09:05 Dose: 81 mg Documented by: Dextrose (Dextrose 50%) 0 ml IV UD PRN PRN Reason: Hypoglycemia Diagnostic Test (Pha) (Accu-Chek) 1 each FS [facility] Last Admin: 09/21/18 11:22 Dose: 1 each Documented by: Furosemide (Lasix) 40 mg IV BIDD [facility] Last Admin: 09/21/18 07:51 Dose: 40 mg Documented by: Gabapentin (Neurontin) 300 mg PO Q8 [facility] Last Admin: 09/21/18 05:44 Dose: 300 mg Documented by: Glucose (Insta-Glucose) 15 gm PO PRN PRN PRN Reason: Hypoglycemia Heparin Sodium (Porcine) (Heparin) 5,000 unit SQ Q12 [facility] Last Admin: 09/21/18 09:06 Dose: 5,000 unit Documented by: Insulin Human Lispro (Humalog) 0 unit SQ [facility]; Protocol Last Admin: 09/21/18 11:24 Dose: 2 units Documented by: Levofloxacin (Levaquin) 750 mg PO DAILY [facility] Last Admin: 09/21/18 11:11 Dose: 750 mg Documented by: Linezolid (Zyvox) 600 mg PO Q12 [facility] Last Admin: 09/21/18 09:05 Dose: 600 mg Documented by: Losartan Potassium (Cozaar) 100 mg PO DAILY [facility] Last Admin: 09/21/18 09:05 Dose: 100 mg Documented by: Metolazone (Zaroxolyn) 2.5 mg PO BID@0730,1530 [facility] Last Admin: 09/21/18 07:35 Dose: 2.5 mg Documented by: Naloxone HCl (Narcan) 0.1 mg IV Q2MIN PRN PRN Reason: Opiate Reversal Ondansetron HCl (Zofran) 4 mg IV Q4HP PRN PRN Reason: Nausea And Vomiting Pneumococcal Polyvalent Vaccine (Pneumovax 23) 0.5 ml IM .ONCE ONE Stop: 09/22/18 10:01 Sodium Chloride (Saline Flush) 10 ml IV Q8 [facility] Last Admin: 09/21/18 05:44 Dose: 10 ml Documented by: Medical - PN: A/P - Time Spent With Patient Total time spent is greater than 50% in coordination of care (as documented) at patient's floor/unit and/or counseling patient: - Narrative A/P Narrative: A/P Diastolic heart failure Acute Cor pulmonale Morbid obesity Cellulitis Edema with venous stasis Non compliance with meds COPD VALENTE, on cpap DM Plan monitor on tele IV lasix, add metolazone before lasix for aggressive diuresis PO zyvox and levoflox for cellulitis for now, wound care to follow continue home med may need anti depressants, but givne that he is on zyvox, will need to be started after this round of medications is complete monitor I/O CPAP during sleep Resume home meds as appropriate, hold metformin. DVT hep sq Diet cardiac Full code. Medical - PN: Qual - VTE Deep Vein Thrombosis/Pulmonary Embolism Present on Admission: No
--- NOTE | 2018-09-21 17:33 | General Surgery Consult Note ---
History of Present Illness Patient information: Note initiated : 09/21/18 at 5:28 pm Service Date, if different from initiated Date: [] Patient: Yaakov Jacobson 77 y/o M admitted on 09/20/18 for high BP, swelling, SOB. Chief Complaint: [] Consult date: 09/21/18 Requesting physician: Isabel Tom ([facility]) History of present illness: 77/M Seen in ICU 120-C. Patient admitted with multiple medical ( Cardiac / Respiratory ) issues and is currently undergoing appropriate medical management. 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 I saw the photographs of these areas and examined this patient along with Jessica ROBISON and in the presence of his family member in the room. Reviewed wound care recommendations and will follow him in hospital or at wound care clinic after discharge. Medications and Allergies Home Medications Medication Instructions Recorded Confirmed Type aspirin 81 mg tablet,delayed 81 mg PO QDAY #90 tab 03/15/15 09/20/18 Rx release gabapentin 300 mg capsule 300 mg PO Q8H 90 Days #270 cap 04/26/15 09/20/18 Rx losartan 100 mg tablet 100 mg PO QDAY #90 tab 04/26/15 09/20/18 Rx metformin 1,000 mg tablet 500 mg PO QDAY 90 Days #45 tab 05/15/15 09/20/18 Rx chlorhexidine gluconate 4 % 1 applic TOPICAL .COMPLEX #3800 ml 06/06/15 09/20/18 Rx topical liquid furosemide 20 mg tablet 40 mg PO BID 90 Days #360 tab 06/28/15 09/20/18 Rx RX: Chlorthalidone 25 mg PO DAILY 09/20/18 09/20/18 History RX: Dapagliflozin Propanediol 5 mg PO DAILY 09/20/18 09/20/18 History [Farxiga] RX: Doxycycline Hyclate 100 mg PO BID 09/20/18 09/20/18 History [Vibramycin] RX: Losartan Potassium 100 mg PO AC 09/20/18 09/20/18 History RX: Metoprolol Succinate 25 mg PO HS 09/20/18 09/20/18 History [Kapspargo Sprinkle] RX: Potassium Chloride [Kdur] 10 meq PO QAC 09/20/18 09/22/18 History RX: amLODIPine [Norvasc] 5 mg PO HS 09/20/18 09/20/18 History Anoro 1 puff INH HS 09/23/18 09/23/18 History RX: Levofloxacin [Levaquin] 750 mg PO DAILY #1 tab 09/23/18 Rx RX: Linezolid [Zyvox] 600 mg PO Q12 #6 tab 09/23/18 Rx Allergies Allergy/AdvReac Type Severity Reaction Status Date / Time Rqwlmsn-Ekx-Ixt Reductase AdvReac Severe other Verified 09/20/18 11:53 Inhibitor Exam Temp Pulse Resp BP Pulse Ox 98.1 F 82 16 121/62 94 09/21/18 17:09 09/21/18 13:20 09/21/18 17:09 09/21/18 17:09 09/21/18 17:09 - General physical appearance well developed, well nourished, no distress, obese - Eyes PERRL, normal ocular movement - ENT normal pinna, normal nares, normal mucosa, no congestion - Head Head exam IM: Present: atraumatic, normal inspection, normocephalic - Neck no masses, no venous distension - Cardiovascular Cardiovascular exam IM: Present: normal rate and rhythm - Respiratory normal expansion dullness: bilateral (Decreased air entry at lung bases) - Abdomen Abdomen: Present: soft, non tender, bowel sounds - Integumentary Present: other (Chronic dry scaly dermatitis of both legs and lymphedema of bilateral LE. NO OPEN SKIN ULCERS. NO necrosis of skin. NO drainage and NO odor.) - Neurologic Present: normal coordination, other (No gross neurological deficits. ) - Musculoskeletal Present: other (Examined patient in room in sitting and supine postures. NO gross neurological deficits noted. ) - Psychiatric Present: oriented to time, oriented to person, oriented to place, speech is normal, memory intact Results - Labs 09/23/18 05:16 09/23/18 05:16 Abnormal lab results 09/21/18 09/21/18 Range/Units 03:44 03:44 WBC 14.4 H (4.5-11.0) K/mcL RBC 6.06 H (4.50-5.90) M/mcL MCV 75.4 L (80.0-100.0) fL MCH 22.8 L (26.0-34.0) pg MCHC 30.3 L (31.0-36.0) g/dL RDW 20.7 H (11.5-14.5) % Gran % 85.0 H (38.0-78.0) % Lymph % (Auto) 6.8 L (15.5-49.0) % Gran # 12.2 H (1.8-8.0) K/mcL Lymph # (Auto) 1.0 L (1.5-4.8) K/mcL [place] # (Auto) 1.1 H (0.1-0.9) K/mcL Carbon Dioxide 31 H (22-30) mmol/L Glucose 121 H (70-105) mg/dL Phosphorus 5.0 H (2.7-4.5) mg/dL GGT 62 H (8-61) U/L Globulin 3.9 H (2.2-3.7) gm/dL Albumin/Globulin Ratio 0.8 L (1.0-2.3) Diabetes panel 09/21/18 Range/Units 03:44 Sodium 143 (133-145) mmol/L Potassium 3.8 (3.3-5.1) mmol/L Chloride 97 (96-108) mmol/L Carbon Dioxide 31 H (22-30) mmol/L BUN 23 (8-23) mg/dl Creatinine 1.2 (0.7-1.2) mg/dl Glucose 121 H (70-105) mg/dL Calcium 9.5 (8.6-10.4) mg/dl AST 14 (0-37) U/l ALT 13 (0-40) U/l Alkaline Phosphatase 65 (39-117) U/L Total Protein 7.1 (5.9-8.4) gm/dL Albumin 3.2 (3.2-5.2) gm/dL Triglycerides 116 (<150) mg/dl Calcium panel 09/21/18 Range/Units 03:44 Calcium 9.5 (8.6-10.4) mg/dl Phosphorus 5.0 H (2.7-4.5) mg/dL Albumin 3.2 (3.2-5.2) gm/dL Pituitary panel 09/21/18 Range/Units 03:44 Sodium 143 (133-145) mmol/L Potassium 3.8 (3.3-5.1) mmol/L Chloride 97 (96-108) mmol/L Carbon Dioxide 31 H (22-30) mmol/L BUN 23 (8-23) mg/dl Creatinine 1.2 (0.7-1.2) mg/dl Glucose 121 H (70-105) mg/dL Calcium 9.5 (8.6-10.4) mg/dl Adrenal panel 09/21/18 Range/Units 03:44 Sodium 143 (133-145) mmol/L Potassium 3.8 (3.3-5.1) mmol/L Chloride 97 (96-108) mmol/L Carbon Dioxide 31 H (22-30) mmol/L BUN 23 (8-23) mg/dl Creatinine 1.2 (0.7-1.2) mg/dl Glucose 121 H (70-105) mg/dL Calcium 9.5 (8.6-10.4) mg/dl Total Bilirubin 0.5 (0.0-1.0) mg/dL AST 14 (0-37) U/l ALT 13 (0-40) U/l Alkaline Phosphatase 65 (39-117) U/L Total Protein 7.1 (5.9-8.4) gm/dL Albumin 3.2 (3.2-5.2) gm/dL All other labs normal. Assessment and Plan (1) Dermatitis of lower extremity Assessment: Chronic dryness dermatitis of both LE with desquamation scales and post phlebitis changes. Plan: Continue ongoing medical management of co morbid medical conditions. LOCAL Skin Care: Cleanse with Chlorhexidine soap groins to toes daily. Pat dry with towel/ Skin Repair creme, moisturizing creme or coconut oil to be applied daily. AVOID customized circumferential compression unna boot or stockings to avoid constriction. May use Kerlix bandage and KIA wraps. If discharged f/u at the wound care center in ONE week. Status: Chronic Priority: Low
[2018-09-22] MEDS: IPRATROPIUM/ALBUTEROL 3 ML AMPUL.NEB NEB SCH ×3 (01:55→06:40)
[2018-09-22] MEDS: GABAPENTIN 300 MG CAPSULE PO SCH ×3 (05:30→21:02)
[2018-09-22] MEDS: 0.9 % SODIUM CHLORIDE 10 ML SYRINGE IV SCH ×3 (05:30→21:02)
[2018-09-22 06:10] LABS: ALT/SGPT 11 U/l (0-40); Albumin 3.1 gm/dL (3.2-5.2); Albumin/Globulin Ratio 0.8 (1.0-2.3); Alkaline Phosphatase 63 U/L (39-117); Bilirubin,Direct < 0.2 mg/dL (0.0-0.3); Blood Urea Nitrogen 29 mg/dl (8-23); Gamma Glutamyl Transpeptidase 56 U/L (8-61); Uric Acid 6.7 mg/dL (2.5-8.0)
[2018-09-22 06:22] LABS: Basophils # (Auto) 0 K/mcL (0.0-0.3); Basophils % (Auto) 0.1 % (0.0-2.0); Eosinophils # (Auto) 0.2 K/mcL (0.0-0.7); Eosinophils % (Auto) 1.6 % (0.0-7.0); Granulocytes % (Auto) 82.2 % (38.0-78.0); Lymphocytes # (Auto) 1.2 K/mcL (1.5-4.8); Lymphocytes % (Auto) 8.9 % (15.5-49.0); Mean Cell Volume 75.8 fL (80.0-100.0); Mean Corpuscular HGB Conc 30.2 g/dL (31.0-36.0); Monocytes % (Auto) 7.2 % (1.0-12.0); Platelet Count 293 K/mcL (140-440); RBC 5.81 M/mcL (4.50-5.90); Red Cell Distribution Width 20.6 % (11.5-14.5)
[2018-09-22] MEDS: METOLAZONE 2.5 MG TABLET PO SCH ×2 (07:53→15:15)
[2018-09-22] MEDS: INSULIN LISPRO 1 UNIT/0.01 ML UNIT SQ SCH ×4 (07:54→21:01)
[2018-09-22] MEDS: LEVOFLOXACIN 750 MG TABLET PO SCH (08:17)
[2018-09-22] MEDS: ASPIRIN 81 MG TAB.CHEW PO SCH (08:17)
[2018-09-22] MEDS: FUROSEMIDE 40 MG/4 ML VIAL IV SCH (08:17)
[2018-09-22] MEDS: LOSARTAN 50 MG TABLET PO SCH (08:17)
[2018-09-22] MEDS: HEPARIN 5,000 UNIT/ML VIAL SQ SCH ×2 (08:17→21:01)
[2018-09-22] MEDS: LINEZOLID 600 MG TABLET PO SCH ×2 (08:17→21:01)
[2018-09-22] MEDS ORDERED: PNEUMOCOCCAL 23-VAL P-SAC VAC 0.5 ML SYRINGE IM ONE (10:00)
[2018-09-22] MEDS ORDERED: IPRATROPIUM/ALBUTEROL 3 ML AMPUL.NEB NEB PRN ×2 (13:05→15:46)
--- NOTE | 2018-09-22 13:09 | Discharge Summary ---
Medical - DS: Prov Patient information: Note initiated : 09/22/18 at 1:08 pm Service Date, if different from initiated Date: [] Patient: Yaakov Jacobson 77 y/o M admitted on 09/20/18 for high BP, swelling, SOB. Chief Complaint: [] Date of admission: 09/20/18 18:46 Discharge date: 09/24/18 Primary care physician: Isabel Tom Consults: 09/20/18 17:24 Consult to Physician [CONS] Stat Comment: Consulting Provider: Isabel Tom Reason For Exam: Physician to Consult 09/21/18 08:18 Consult to Physician [CONS] Routine Comment: BLEs Consulting Provider: Daniel Macias Reason For Exam: Physician to Consult Medical - DS: Meds - Discharge Medications Prescriptions: Levofloxacin [Levaquin] 750 mg PO DAILY #1 tab Linezolid [Zyvox] 600 mg PO Q12 #6 tab Active and Home Medications: Home Medications aspirin 81 mg tablet,delayed release 81 mg PO QDAY #90 tab 03/15/15 [Rx Confirmed 09/20/18 Last Taken Unknown] gabapentin 300 mg capsule 300 mg PO Q8H 90 Days #270 cap 04/26/15 [Rx Confirmed 09/20/18 Last Taken Unknown] losartan 100 mg tablet 100 mg PO QDAY #90 tab 04/26/15 [Rx Confirmed 09/20/18 Last Taken Unknown] metformin 1,000 mg tablet 500 mg PO QDAY 90 Days #45 tab 05/15/15 [Rx Confirmed 09/20/18 Last Taken Unknown] chlorhexidine gluconate 4 % topical liquid 1 applic TOPICAL .COMPLEX #3800 ml 06/06/15 [Rx Confirmed 09/20/18 Last Taken Unknown] furosemide 20 mg tablet 40 mg PO BID 90 Days #360 tab 06/28/15 [Rx Confirmed 09/20/18 Last Taken Unknown] Chlorthalidone 25 mg PO DAILY 09/20/18 [History Confirmed 09/20/18 Last Taken Unknown] Dapagliflozin Propanediol [Farxiga] 5 mg PO DAILY 09/20/18 [History Confirmed 09/20/18 Last Taken Unknown] Doxycycline Hyclate [Vibramycin] 100 mg PO BID 09/20/18 [History Confirmed 09/20/18 Last Taken Unknown] Losartan Potassium 100 mg PO AC 09/20/18 [History Confirmed 09/20/18 Last Taken Unknown] Metoprolol Succinate [Kapspargo Sprinkle] 25 mg PO HS 09/20/18 [History Con firmed 09/20/18 Last Taken Unknown] Potassium Chloride [Kdur] 10 meq PO ONCE 09/20/18 [History Confirmed 09/20/18 Last Taken Unknown] amLODIPine [Norvasc] 5 mg PO HS 09/20/18 [History Confirmed 09/20/18 Last Taken Unknown] Medical - DS: Hosp Hospital course: Mr. Jacobson is a 77 year old M with h/o pulmonary hypertensino, diastolic heart failure, notoriously non compliant with meds presents to the ER after being sent there by Dr Gutiérrez for evaluation of shortness of breath and hypoxia. This is a pleasant 77-year-old gentleman with history of multiple medical issues, comes to the hospital today after being seen in the cardiology clinic for evaluation of shortness of breath. He is also had edema in his lower extremities and weeping lower extremity wounds. The patient notes he was here for his routine follow-up with cardiology when he was noted to be hypoxic, the patient reports his fingers being cyanotic, and him being short of breath he was therefore sent to the emergency room for further evaluation. The patient admits to being short of breath and having increased swelling over the last few days to weeks, he is noncompliant with diet, has a high salt intake and does not take his diuretics as prescribed. The patient admits to having runny nose and watery eyes, subjective sensation of fever going on for the last few days. He wears a compression stockings and his helps him manage his lower extremities. I am not sure how much of his chronic medications he has been compliant with. [place] The patient denies any headache changes in vision difficulty in swallowing chest pain admits to having shortness of breath, denies any nausea vomiting abdominal pain diarrhea constipation denies any new joint pains, has lower extremity edema which is chronic and chronic weeping wounds. In the emergency room initially patient was afebrile however later developed a temperature of 100.6, heart rate 86 blood pressure 136/77 respirations anywhere between 28-35 saturating 8693% on 2 L of oxygen. ABG drawn shows pH of 7.39 PCO2 58 PO2 of 54 on 2 L of oxygen. Echocardiogram done in the past shows moderate to severe pulmonary hypertension, nuclear stress test was negative testing done within 2 years. Chest x-ray shows mild CHF versus fluid overload. EKG shows sinus rhythm poor R wave progression. WBC is elevated at 14.4 hemoglobin 14.5 platelets 305 sodium 144 potassium 4.1 bicarbonate 31 creatinine 1.0 glucose 121 calcitonin is less than 0.10 lactic acid 1.0 troponin is negative BNP mildly elevated at 462 UA is negative for UTI Given lower extrmity weeping edema/cellulitis, chf, fluid overload and hypoxia, pt is being admitted to the hospital for further management 2 rounds of diuretics with good response was done in the ER without much improvement in oxygenation. 09/21 Patient seen and examined, no acute overnight events. I spoke with his in length. She was concerned about the patient's change in behavior, over the last 3 months. Patient has been sleeping in his recliner. There has been progressive increase in his edema as well as noncompliance with medications. There is also have been change in the patient's behavior towards the patient's and which is more aggressive and agitated. There has been some deaths in the family recently. She is concerned that the patient may also be depressed 09/22 patient seen examined, no acute overnight events, off oxygen now, wbc trending down no new complaints or concerns, slight rise in Creat to be monitored 09/23 Creatinine similar to yesterday, holding diuretics today. Nurse reports hypoxia this morning on his CPAP machine. Patient denies shortness of breath. Patient overall feels better, denies any chest pain coughing. 09/24 Feeling well. No overnight events. RT to assess for home oxygen. Stable for discharge. Discharge diagnosis: Acute on chronic diastolic heart failure acute cor pulmonale morbid obesity Secondary discharge diagnosis: Cellulitis venous stasis COPD VALENTE diabetes - Time Spent with Patient Total time spent providing and/or coordinating discharge services: Greater than 30 minutes Medical - DS: Exam - Constitutional Vitals: Vital Signs Temp Pulse Resp BP Pulse Ox 09/22/18 08:00 91 09/22/18 07:48 97.9 F 18 122/61 93 09/22/18 06:43 72 16 09/22/18 03:47 90 09/22/18 03:38 98.2 F 18 118/50 90 09/22/18 00:12 98.2 F 22 139/53 91 09/21/18 20:13 97.8 F 18 116/68 95 09/21/18 18:55 92 H 20 09/21/18 17:09 98.1 F 16 121/62 94 09/21/18 13:20 82 18 Intake and Output 09/21/18 09/22/18 09/22/18 21:59 05:59 13:59 Intake Total 360 / 1850 630 / 1850 650 / 650 Output Total 600 / 3775 1500 / 3775 Balance -240 / -1925 -870 / -1925 650 / 650 Intake: Oral 360 / 1850 630 / 1850 650 / 650 Output: Urine Catheter Amount 600 / 3775 1500 / 3775 Other: Meal Lunch Breakfast Percent of Meal Consumed 100% 100% Urine Appearance Clear Uretheral (Paulino) Clear Clear Urine Color Straw Uretheral (Paulino) Straw Dark Tanya Urine Odor Normal Weight 128.321 kg Medical - DS: Data Labs on day of discharge: Labs from last 24 hours 09/22/18 09/22/18 03:35 03:35 WBC 13.3 H RBC 5.81 Hgb 13.3 L Hct 44.0 MCV 75.8 L MCH 22.9 L MCHC 30.2 L RDW 20.6 H Plt Count 293 MPV 9.3 Gran % 82.2 H Lymph % (Auto) 8.9 L [place] % (Auto) 7.2 Eos % (Auto) 1.6 Baso % (Auto) 0.1 Gran # 10.9 H Lymph # (Auto) 1.2 L [place] # (Auto) 1.0 H Eos # (Auto) 0.2 Baso # (Auto) 0 Sodium 141 Potassium 3.6 Chloride 93 L Carbon Dioxide 35 H Anion Gap 13.0 BUN 29 H Creatinine 1.3 H GFR Calculation 53 Glucose 125 H Uric Acid 6.7 Calcium 9.0 Phosphorus 5.0 H Magnesium 2.1 Total Bilirubin 0.6 Direct Bilirubin < 0.2 GGT 56 AST 11 ALT 11 Alkaline Phosphatase 63 Lactate Dehydrogenase 189 Total Protein 6.8 Albumin 3.1 L Globulin 3.7 Albumin/Globulin Ratio 0.8 L Triglycerides 97 Medical - DS: A/P - Patient/Caregiver Discharge Instructions Activity: increase activity as tolerated Diet: Consistent Carbohydrate Additional Instructions: Home Oxygen per RT recommendations Prescriptions: Levofloxacin [Levaquin] 750 mg PO DAILY #1 tab Linezolid [Zyvox] 600 mg PO Q12 #6 tab - Follow up Plan Follow up with: Flora Chilel ARNP [Nurse Practitioner] - Daniel Macias MD [Physician] - Disposition: Xfer SNF Prognosis: Fair Rehab Potential: Fair I certify that the patient requires SNF services: Yes Overall status at discharge: patient is progressing back to baseline Medical - DS: Qual - VTE Deep Vein Thrombosis/Pulmonary Embolism Present on Admission: No
--- NOTE | 2018-09-22 14:09 | Internal Med Progress Note ---
Medical - PN: Subj Patient information: Note initiated : 09/22/18 at 2:06 pm Service Date, if different from initiated Date: [] Patient: Yaakov Jacobson a 77 y/o M admitted on 09/20/18 for high BP, swelling, SOB. Chief Complaint: [] Interval history: Mr. Jacobson is a 77 year old M with h/o pulmonary hypertensino, diastolic heart failure, notoriously non compliant with meds presents to the ER after being sent there by Dr Gutiérrez for evaluation of shortness of breath and hypoxia. This is a pleasant 77-year-old gentleman with history of multiple medical issues, comes to the hospital today after being seen in the cardiology clinic for evaluation of shortness of breath. He is also had edema in his lower extremities and weeping lower extremity wounds. The patient notes he was here for his routine follow-up with cardiology when he was noted to be hypoxic, the patient reports his fingers being cyanotic, and him being short of breath he was therefore sent to the emergency room for further evaluation. The patient admits to being short of breath and having increased swelling over the last few days to weeks, he is noncompliant with diet, has a high salt intake and does not take his diuretics as prescribed. The patient admits to having runny nose and watery eyes, subjective sensation of fever going on for the last few days. He wears a compression stockings and his helps him manage his lower extremities. I am not sure how much of his chronic medications he has been compliant with. [place] The patient denies any headache changes in vision difficulty in swallowing chest pain admits to having shortness of breath, denies any nausea vomiting abdominal pain diarrhea constipation denies any new joint pains, has lower extremity edema which is chronic and chronic weeping wounds. In the emergency room initially patient was afebrile however later developed a temperature of 100.6, heart rate 86 blood pressure 136/77 respirations anywhere between 28-35 saturating 8693% on 2 L of oxygen. ABG drawn shows pH of 7.39 PCO2 58 PO2 of 54 on 2 L of oxygen. Echocardiogram done in the past shows moderate to severe pulmonary hypertension, nuclear stress test was negative testing done within 2 years. Chest x-ray shows mild CHF versus fluid overload. EKG shows sinus rhythm poor R wave progression. WBC is elevated at 14.4 hemoglobin 14.5 platelets 305 sodium 144 potassium 4.1 bicarbonate 31 creatinine 1.0 glucose 121 calcitonin is less than 0.10 lactic acid 1.0 troponin is negative BNP mildly elevated at 462 UA is negative for UTI Given lower extrmity weeping edema/cellulitis, chf, fluid overload and hypoxia, pt is being admitted to the hospital for further management 2 rounds of diuretics with good response was done in the ER without much improvement in oxygenation. 09/21 Patient seen and examined, no acute overnight events. I spoke with his in length. She was concerned about the patient's change in behavior, over the last 3 months. Patient has been sleeping in his recliner. There has been progressive increase in his edema as well as noncompliance with medications. There is also have been change in the patient's behavior towards the patient's and which is more aggressive and agitated. There has been some deaths in the family recently. She is concerned that the patient may also be depressed 09/22 patient seen examined, no acute overnight events, off oxygen now, wbc trending down no new complaints or concerns, slight rise in Creat to be monitored Pertinent ROS: Denies headache, dizziness Denies chest pain, palpitations Denies cough or shortness of breath Denies abdominal pain, nausea or vomiting. - Constitutional Vitals: Vital Signs Temp Pulse Resp BP Pulse Ox 97.9 F 72 16 115/71 93 09/22/18 07:48 09/22/18 06:43 09/22/18 12:14 09/22/18 12:14 09/22/18 12:14 Period Temp Pulse Resp BP Sys/Wood Pulse Ox Last 24 Hr 97.8 F-98.2 F 72-92 16-22 108-139/50-71 90-95 Intake and Output 09/22/18 09/22/18 09/22/18 05:59 13:59 21:59 Intake Total 630 / 1850 650 / 650 Output Total 1500 / 3775 Balance -870 / -1925 650 / 650 Intake & Output: Intake & Output 09/22/18 09/22/18 09/22/18 05:59 13:59 21:59 Intake Total 630 / 1850 650 / 650 Output Total 1500 / 3775 Balance -870 / -1925 650 / 650 Intake: Oral 630 / 1850 650 / 650 Output: Urine Catheter Amount 1500 / 3775 Other: Meal Breakfast Percent of Meal Consumed 100% Urine Appearance Uretheral (Paulino) Clear Urine Color Uretheral (Paulino) Dark Tanya Exam: Constitutional; Afebrile, cooperative, alert, not in distress. Respiratory system: Air Entry equal on both sides, No crackles or wheezing, no rhonchi. CVS- Rate rhythm regular, S1,S2 heard, no gallop, no rub. Abdomen- Soft nontender abdomen, no organomegaly, no tenderness, no guarding or rigidity, TEXTILE CHEMIST- AOOx3, moving all extremities, no gross focal deficit noted. Medical - PN: Obj Da - Labs CBC & Chem 7: 09/22/18 03:35 09/22/18 03:35 Labs: Abnormal Lab Results 09/22/18 09/22/18 09/21/18 03:35 03:35 03:44 WBC 13.3 H RBC Hgb 13.3 L MCV 75.8 L MCH 22.9 L MCHC 30.2 L RDW 20.6 H Gran % 82.2 H Lymph % (Auto) 8.9 L Gran # 10.9 H Lymph # (Auto) 1.2 L [place] # (Auto) 1.0 H D-Dimer Chloride 93 L Carbon Dioxide 35 H 31 H BUN 29 H Creatinine 1.3 H Glucose 125 H 121 H Phosphorus 5.0 H 5.0 H GGT 62 H NT-Pro-B Natriuret Pep Albumin 3.1 L Globulin 3.9 H Albumin/Globulin Ratio 0.8 L 0.8 L Urine Glucose (UA) Urine RBC 09/21/18 09/20/18 09/20/18 03:44 13:19 12:05 WBC 14.4 H RBC 6.06 H Hgb MCV 75.4 L MCH 22.8 L MCHC 30.3 L RDW 20.7 H Gran % 85.0 H Lymph % (Auto) 6.8 L Gran # 12.2 H Lymph # (Auto) 1.0 L [place] # (Auto) 1.1 H D-Dimer Chloride Carbon Dioxide 31 H BUN Creatinine Glucose 121 H Phosphorus GGT NT-Pro-B Natriuret Pep 462.2 H Albumin Globulin 4.0 H Albumin/Globulin Ratio 0.9 L Urine Glucose (UA) >=500 A Urine RBC 2 H 09/20/18 09/20/18 12:05 11:57 WBC 14.4 H RBC 6.26 H Hgb MCV 74.9 L MCH 23.2 L MCHC 30.9 L RDW 20.6 H Gran % 85.1 H Lymph % (Auto) 7.0 L Gran # 12.2 H Lymph # (Auto) 1.0 L [place] # (Auto) D-Dimer 0.52 H Chloride Carbon Dioxide BUN Creatinine Glucose Phosphorus GGT NT-Pro-B Natriuret Pep Albumin Globulin Albumin/Globulin Ratio Urine Glucose (UA) Urine RBC Meds: Medications Acetaminophen (Tylenol) 650 mg PO Q6HP PRN PRN Reason: PAIN/FEVER > 101 Hydrocodone Bitart/Acetaminophen ([place] 5/325mg) 1 tab PO Q4HP PRN PRN Reason: pain not controlled with APAP. Albuterol/Ipratropium (Duoneb) 3 ml NEB Q6HP PRN PRN Reason: Shortness Of Breath Or Wheezing Aspirin (Aspirin) 81 mg PO DAILY [facility] Last Admin: 09/22/18 08:17 Dose: 81 mg Documented by: Dextrose (Dextrose 50%) 0 ml IV UD PRN PRN Reason: Hypoglycemia Diagnostic Test (Pha) (Accu-Chek) 1 each FS [facility] Last Admin: 09/22/18 12:00 Dose: 1 each Documented by: Furosemide (Lasix) 40 mg IV BIDD [facility] Last Admin: 09/22/18 08:17 Dose: 40 mg Documented by: Gabapentin (Neurontin) 300 mg PO Q8 [facility] Last Admin: 09/22/18 05:30 Dose: 300 mg Documented by: Glucose (Insta-Glucose) 15 gm PO PRN PRN PRN Reason: Hypoglycemia Heparin Sodium (Porcine) (Heparin) 5,000 unit SQ Q12 [facility] Last Admin: 09/22/18 08:17 Dose: 5,000 unit Documented by: Insulin Human Lispro (Humalog) 0 unit SQ [facility]; Protocol Last Admin: 09/22/18 12:00 Dose: 1 units Documented by: Levofloxacin (Levaquin) 750 mg PO DAILY [facility] Last Admin: 09/22/18 08:17 Dose: 750 mg Documented by: Linezolid (Zyvox) 600 mg PO Q12 [facility] Last Admin: 09/22/18 08:17 Dose: 600 mg Documented by: Losartan Potassium (Cozaar) 100 mg PO DAILY [facility] Last Admin: 09/22/18 08:17 Dose: 100 mg Documented by: Metolazone (Zaroxolyn) 2.5 mg PO BID@0730,1530 [facility] Last Admin: 09/22/18 07:53 Dose: 2.5 mg Documented by: Naloxone HCl (Narcan) 0.1 mg IV Q2MIN PRN PRN Reason: Opiate Reversal Ondansetron HCl (Zofran) 4 mg IV Q4HP PRN PRN Reason: Nausea And Vomiting Sodium Chloride (Saline Flush) 10 ml IV Q8 [facility] Last Admin: 09/22/18 05:30 Dose: 10 ml Documented by: Medical - PN: A/P - Time Spent With Patient Total time spent is greater than 50% in coordination of care (as documented) at patient's floor/unit and/or counseling patient: - Narrative A/P Narrative: A/P Diastolic heart failure Acute Cor pulmonale Morbid obesity Cellulitis Edema with venous stasis Non compliance with meds COPD VALENTE, on cpap DM KARLA Plan xfer to med surg IV lasix and metolozone for now, monitor urine ouput. still has edema feet PO zyvox and levoflox for cellulitis for now, wound care to follow continue home med Hold ARB, cholorothalidone. may need anti depressants, but givne that he is on zyvox, will need to be started after this round of medications is complete. CPAP during sleep, pts oxygen level drops even if he sleeps in a chair without oxygen/cpap Resume home meds as appropriate, hold metformin. DVT hep sq Diet cardiac Full code. Medical - PN: Qual - VTE Deep Vein Thrombosis/Pulmonary Embolism Present on Admission: No
[2018-09-22] MEDS ORDERED: NALOXONE HCL 0.4 MG/ML VIAL IV PRN (15:46)
[2018-09-22] MEDS ORDERED: ACETAMINOPHEN 325 MG TABLET PO PRN (15:46)
[2018-09-22] MEDS ORDERED: HYDROcodone/APAP 5/325MG TABLET PO PRN (15:46)
[2018-09-22] MEDS ORDERED: DEXTROSE 50% 50 ML VIAL IV PRN (15:46)
[2018-09-22] MEDS ORDERED: ONDANSETRON 4 MG/2 ML VIAL IV PRN (15:46)
[2018-09-22] MEDS ORDERED: DEXTROSE 31 GM ORAL.SUSP PO PRN (15:46)
[2018-09-22] MEDS ORDERED: FUROSEMIDE 40 MG/4 ML VIAL IV SCH (16:00)
[2018-09-22] MEDS ORDERED: POTASSIUM CHLORIDE 10 MEQ TABLET PO ONE (16:00)
[2018-09-22] MEDS: METOPROLOL SUCCINATE 25 MG TAB.XL.24H PO SCH (21:01)
[2018-09-22] MEDS: amLODIPine 5 MG TABLET PO SCH (21:01)
[2018-09-23] MEDS: 0.9 % SODIUM CHLORIDE 10 ML SYRINGE IV SCH ×3 (05:07→20:38)
[2018-09-23] MEDS: GABAPENTIN 300 MG CAPSULE PO SCH ×3 (05:07→20:34)
[2018-09-23 06:31] LABS: Basophils # (Auto) 0 K/mcL (0.0-0.3); Basophils % (Auto) 0.1 % (0.0-2.0); Eosinophils # (Auto) 0.2 K/mcL (0.0-0.7); Eosinophils % (Auto) 1.4 % (0.0-7.0); Granulocytes % (Auto) 84.8 % (38.0-78.0); Lymphocytes # (Auto) 1.1 K/mcL (1.5-4.8); Lymphocytes % (Auto) 7.6 % (15.5-49.0); Mean Cell Volume 74.9 fL (80.0-100.0); Mean Corpuscular HGB Conc 30.5 g/dL (31.0-36.0); Monocytes # (Auto) 0.9 K/mcL (0.1-0.9); Monocytes % (Auto) 6.1 % (1.0-12.0); Platelet Count 323 K/mcL (140-440); RBC 6.25 M/mcL (4.50-5.90); Red Cell Distribution Width 20.7 % (11.5-14.5)
[2018-09-23 07:10] LABS: ALT/SGPT 13 U/l (0-40); Albumin 3.3 gm/dL (3.2-5.2); Albumin/Globulin Ratio 0.8 (1.0-2.3); Alkaline Phosphatase 66 U/L (39-117); Bilirubin,Direct < 0.2 mg/dL (0.0-0.3); Blood Urea Nitrogen 36 mg/dl (8-23); Gamma Glutamyl Transpeptidase 63 U/L (8-61); Uric Acid 8.1 mg/dL (2.5-8.0)
[2018-09-23] MEDS ORDERED: METOLAZONE 2.5 MG TABLET PO SCH (07:30)
[2018-09-23] MEDS: POTASSIUM CHLORIDE 10 MEQ TABLET PO SCH (07:54)
[2018-09-23] MEDS: INSULIN LISPRO 1 UNIT/0.01 ML UNIT SQ SCH ×4 (07:55→20:38)
[2018-09-23 08:09] LABS: Anisocytosis 1+ (NONE SEEN); Band Neutrophils % 5 % (0-10); Basophils % (Manual) 1 % (0-2); Eosinophils % (Manual) 2 % (0-7); Lymphocytes % 7 % (15-49); Monocytes % (Manual) 7 % (1-12); Platelet Estimate NORMAL (NORMAL); RBC Morphology ABNORM (NORMAL); Segmented Neutrophils % 78 % (38-78)
[2018-09-23] MEDS: ASPIRIN 81 MG TAB.CHEW PO SCH (08:11)
[2018-09-23] MEDS: LINEZOLID 600 MG TABLET PO SCH ×2 (08:12→20:29)
[2018-09-23] MEDS: HEPARIN 5,000 UNIT/ML VIAL SQ SCH ×2 (08:12→20:28)
[2018-09-23] MEDS ORDERED: LEVOFLOXACIN 750 MG TABLET PO SCH (09:00)
--- NOTE | 2018-09-23 09:10 | Internal Med Progress Note ---
Medical - PN: Subj Patient information: Note initiated : 09/23/18 at 9:08 am Service Date, if different from initiated Date: [] Patient: Yaakov Jacobson a 77 y/o M admitted on 09/20/18 for high BP, swelling, SOB. Chief Complaint: [] Interval history: Mr. Jacobson is a 77 year old M with h/o pulmonary hypertensino, diastolic heart failure, notoriously non compliant with meds presents to the ER after being sent there by Dr Gutiérrez for evaluation of shortness of breath and hypoxia. This is a pleasant 77-year-old gentleman with history of multiple medical issues, comes to the hospital today after being seen in the cardiology clinic for evaluation of shortness of breath. He is also had edema in his lower extremities and weeping lower extremity wounds. The patient notes he was here for his routine follow-up with cardiology when he was noted to be hypoxic, the patient reports his fingers being cyanotic, and him being short of breath he was therefore sent to the emergency room for further evaluation. The patient admits to being short of breath and having increased swelling over the last few days to weeks, he is noncompliant with diet, has a high salt intake and does not take his diuretics as prescribed. The patient admits to having runny nose and watery eyes, subjective sensation of fever going on for the last few days. He wears a compression stockings and his helps him manage his lower extremities. I am not sure how much of his chronic medications he has been compliant with. [place] The patient denies any headache changes in vision difficulty in swallowing chest pain admits to having shortness of breath, denies any nausea vomiting abdominal pain diarrhea constipation denies any new joint pains, has lower extremity edema which is chronic and chronic weeping wounds. In the emergency room initially patient was afebrile however later developed a temperature of 100.6, heart rate 86 blood pressure 136/77 respirations anywhere between 28-35 saturating 8693% on 2 L of oxygen. ABG drawn shows pH of 7.39 PCO2 58 PO2 of 54 on 2 L of oxygen. Echocardiogram done in the past shows moderate to severe pulmonary hypertension, nuclear stress test was negative testing done within 2 years. Chest x-ray shows mild CHF versus fluid overload. EKG shows sinus rhythm poor R wave progression. WBC is elevated at 14.4 hemoglobin 14.5 platelets 305 sodium 144 potassium 4.1 bicarbonate 31 creatinine 1.0 glucose 121 calcitonin is less than 0.10 lactic acid 1.0 troponin is negative BNP mildly elevated at 462 UA is negative for UTI Given lower extrmity weeping edema/cellulitis, chf, fluid overload and hypoxia, pt is being admitted to the hospital for further management 2 rounds of diuretics with good response was done in the ER without much improvement in oxygenation. 09/21 Patient seen and examined, no acute overnight events. I spoke with his in length. She was concerned about the patient's change in behavior, over the last 3 months. Patient has been sleeping in his recliner. There has been progressive increase in his edema as well as noncompliance with medications. There is also have been change in the patient's behavior towards the patient's and which is more aggressive and agitated. There has been some deaths in the family recently. She is concerned that the patient may also be depressed 09/22 patient seen examined, no acute overnight events, off oxygen now, wbc trending down no new complaints or concerns, slight rise in Creat to be monitored 09/23 Creatinine similar to yesterday, holding diuretics today. Nurse reports hypoxia this morning on his CPAP machine. Patient denies shortness of breath. Patient overall feels better, denies any chest pain coughing. Review of Systems: denies headache/fever/chills/nausea/vomiting/chest or abdominal pain/cough/dysp corey/diarrhea. Otherwise see above. - Constitutional Vitals: Vital Signs Temp Pulse Resp BP Pulse Ox 98.1 F 73 24 H 120/68 92 09/23/18 06:54 09/23/18 06:54 09/23/18 06:54 09/23/18 06:54 09/23/18 07:16 Period Temp Pulse Resp BP Sys/Wood Pulse Ox Last 24 Hr 97.9 F-98.9 F 73-89 12-24 108-122/59-78 80-99 Intake and Output 09/22/18 09/23/18 09/23/18 21:59 05:59 13:59 Intake Total 360 / 1010 240 / 240 Output Total 1150 / 2450 1300 / 2450 Balance -1150 / -1440 -940 / -1440 240 / 240 Weight 126.779 kg Intake & Output: Intake & Output 09/22/18 09/23/18 09/23/18 21:59 05:59 13:59 Intake Total 360 / 1010 240 / 240 Output Total 1150 / 2450 1300 / 2450 Balance -1150 / -1440 -940 / -1440 240 / 240 Weight 126.779 kg Intake: Oral 360 / 1010 240 / 240 Output: Urine Catheter Amount 1150 / 2100 950 / 2100 Void Amount 350 / 350 Other: Meal Breakfast Percent of Meal Consumed 100% Urine Appearance Clear Clear Clear Uretheral (Paulino) Clear Clear Urine Color Straw Straw Straw Uretheral (Paulino) Dark Yellow Bright Yellow Urine Odor Normal Stool Size Large Large Stool Color Brown Stool Consistency Soft Soft # Bowel Movements 1 Exam: General: Alert, Awake, No acute Distress, obese Eyes/N/T: EOMI, Head/Neck: neck supple, CV: RRR, No murmurs, Pulm: mild bibase rales, no wheezing Abd: soft, nontender, +BS x4 Ext: no clubbing/cyanosis, b/l LE edema 1-2+, pedal 3+ Neuro: Alert, no focal deficits, moves all extremities, Skin: warm/dry Medical - PN: Obj Da - Labs CBC & Chem 7: 09/23/18 05:16 09/23/18 05:16 Labs: Abnormal Lab Results 09/23/18 09/23/18 09/23/18 05:16 05:16 05:16 WBC 14.8 H RBC 6.25 H Hgb MCV 74.9 L MCH 22.8 L MCHC 30.5 L RDW 20.7 H Gran % 84.8 H Lymph % (Auto) 7.6 L Gran # 12.6 H Lymph # (Auto) 1.1 L [place] # (Auto) Lymphocytes % 7 L RBC Morphology Abnorm A Anisocytosis 1+ A Microcytosis 1+ A D-Dimer Chloride 90 L Carbon Dioxide 35 H BUN 36 H Creatinine 1.4 H Glucose 139 H Uric Acid 8.1 H Phosphorus GGT 63 H NT-Pro-B Natriuret Pep Albumin Globulin 3.9 H Albumin/Globulin Ratio 0.8 L Urine Glucose (UA) Urine RBC 09/22/18 09/22/18 09/21/18 03:35 03:35 03:44 WBC 13.3 H RBC Hgb 13.3 L MCV 75.8 L MCH 22.9 L MCHC 30.2 L RDW 20.6 H Gran % 82.2 H Lymph % (Auto) 8.9 L Gran # 10.9 H Lymph # (Auto) 1.2 L [place] # (Auto) 1.0 H Lymphocytes % RBC Morphology Anisocytosis Microcytosis D-Dimer Chloride 93 L Carbon Dioxide 35 H 31 H BUN 29 H Creatinine 1.3 H Glucose 125 H 121 H Uric Acid Phosphorus 5.0 H 5.0 H GGT 62 H NT-Pro-B Natriuret Pep Albumin 3.1 L Globulin 3.9 H Albumin/Globulin Ratio 0.8 L 0.8 L Urine Glucose (UA) Urine RBC 09/21/18 09/20/18 09/20/18 03:44 13:19 12:05 WBC 14.4 H RBC 6.06 H Hgb MCV 75.4 L MCH 22.8 L MCHC 30.3 L RDW 20.7 H Gran % 85.0 H Lymph % (Auto) 6.8 L Gran # 12.2 H Lymph # (Auto) 1.0 L [place] # (Auto) 1.1 H Lymphocytes % RBC Morphology Anisocytosis Microcytosis D-Dimer Chloride Carbon Dioxide 31 H BUN Creatinine Glucose 121 H Uric Acid Phosphorus GGT NT-Pro-B Natriuret Pep 462.2 H Albumin Globulin 4.0 H Albumin/Globulin Ratio 0.9 L Urine Glucose (UA) >=500 A Urine RBC 2 H 09/20/18 09/20/18 12:05 11:57 WBC 14.4 H RBC 6.26 H Hgb MCV 74.9 L MCH 23.2 L MCHC 30.9 L RDW 20.6 H Gran % 85.1 H Lymph % (Auto) 7.0 L Gran # 12.2 H Lymph # (Auto) 1.0 L [place] # (Auto) Lymphocytes % RBC Morphology Anisocytosis Microcytosis D-Dimer 0.52 H Chloride Carbon Dioxide BUN Creatinine Glucose Uric Acid Phosphorus GGT NT-Pro-B Natriuret Pep Albumin Globulin Albumin/Globulin Ratio Urine Glucose (UA) Urine RBC Meds: Medications Acetaminophen (Tylenol) 650 mg PO Q6HP PRN PRN Reason: PAIN/FEVER > 101 Hydrocodone Bitart/Acetaminophen ([place] 5/325mg) 1 tab PO Q4HP PRN PRN Reason: pain not controlled with APAP. Albuterol/Ipratropium (Duoneb) 3 ml NEB Q6HP PRN PRN Reason: Shortness Of Breath Or Wheezing Amlodipine Besylate (Norvasc) 5 mg PO [facility] Last Admin: 09/22/18 21:01 Dose: 5 mg Documented by: Aspirin (Aspirin) 81 mg PO DAILY [facility] Last Admin: 09/23/18 08:11 Dose: 81 mg Documented by: Dextrose (Dextrose 50%) 0 ml IV UD PRN PRN Reason: Hypoglycemia Diagnostic Test (Pha) (Accu-Chek) 1 each FS [facility] Last Admin: 09/23/18 07:50 Dose: 1 each Documented by: Gabapentin (Neurontin) 300 mg PO Q8 [facility] Last Admin: 09/23/18 05:07 Dose: 300 mg Documented by: Glucose (Insta-Glucose) 15 gm PO PRN PRN PRN Reason: Hypoglycemia Heparin Sodium (Porcine) (Heparin) 5,000 unit SQ Q12 [facility] Last Admin: 09/23/18 08:12 Dose: 5,000 unit Documented by: Insulin Human Lispro (Humalog) 0 unit SQ [facility]; Protocol Last Admin: 09/23/18 07:55 Dose: 1 mg Documented by: Levofloxacin (Levaquin) 750 mg PO DAILY [facility] Last Admin: 09/23/18 08:11 Dose: 750 mg Documented by: Linezolid (Zyvox) 600 mg PO Q12 [facility] Last Admin: 09/23/18 08:12 Dose: 600 mg Documented by: Metoprolol Succinate (Toprol Xl) 25 mg PO [facility] Last Admin: 09/22/18 21:01 Dose: 25 mg Documented by: Naloxone HCl (Narcan) 0.1 mg IV Q2MIN PRN PRN Reason: Opiate Reversal Ondansetron HCl (Zofran) 4 mg IV Q4HP PRN PRN Reason: Nausea And Vomiting Potassium Chloride (Kdur) 10 meq PO QAMCC [facility] Last Admin: 09/23/18 07:54 Dose: 10 meq Documented by: Sodium Chloride (Saline Flush) 10 ml IV Q8 [facility] Last Admin: 09/23/18 05:07 Dose: 10 ml Documented by: Medical - PN: A/P - Time Spent With Patient Total time spent is greater than 50% in coordination of care (as documented) at patient's floor/unit and/or counseling patient: - Narrative A/P Narrative: A: *acute on chronic Diastolic heart failure: improving *Acute Cor pulmonale/PAH: *Hypoxia: 2/2 above plus underlying copd and obesity, increased need this morning, f/u echo & cxr *Morbid obesity: *Cellulitis: *Edema w/Venous stasis *Non compliance with meds *COPD (not on home O2): home med Anoro Ellipta *VALENTE, on bipap@home: *DM: *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 -wound care to follow -may need anti depressants, but givne that he is on zyvox, will need to be started after this round of medications is complete. -CPAP during sleep, pts oxygen level drops even if he sleeps in a chair without oxygen/cpap -cont home norvasc 5mg, torpol, hold losartan for karla -SSI, holding metformin for now -pt/ot -ppx: hep sq Diet cardiac Full code. Medical - PN: Qual - VTE Deep Vein Thrombosis/Pulmonary Embolism Present on Admission: No
--- NOTE | 2018-09-23 10:42 | XRay Report ---
CLINICAL INFORMATION: chf COMPARISON: 09/20/2018 and 05/13/2005 x-rays FINDINGS: Heart is minimally enlarged. Mediastinum is unremarkable. Upper lobe pulmonary vessels demonstrate mild redistribution compared to a baseline x-ray from 05/13/2005. No edema. Minor bibasilar atelectasis noted. No infiltrates. Tiny right pleural effusion noted IMPRESSION: Minimal CHF or volume overload Interpreted and Authenticated by: Cristian Chamorro 09/23/18
[2018-09-23] MEDS: amLODIPine 5 MG TABLET PO SCH (20:29)
[2018-09-23] MEDS: METOPROLOL SUCCINATE 25 MG TAB.XL.24H PO SCH (20:29)
[2018-09-23] MEDS ORDERED: UMECLIDINIUM PO SCH (21:00)
[2018-09-23] MEDS ORDERED: ANORO INH SCH (21:00)
[2018-09-23] MEDS ORDERED: VILANTEROL PO SCH (21:00)
[2018-09-24] MEDS: IPRATROPIUM/ALBUTEROL 3 ML AMPUL.NEB NEB SCH (03:11)
[2018-09-24 06:10] LABS: ALT/SGPT 14 U/l (0-40); Albumin 3.2 gm/dL (3.2-5.2); Albumin/Globulin Ratio 0.8 (1.0-2.3); Alkaline Phosphatase 63 U/L (39-117); Bilirubin,Direct < 0.2 mg/dL (0.0-0.3); Blood Urea Nitrogen 31 mg/dl (8-23); Gamma Glutamyl Transpeptidase 63 U/L (8-61); Uric Acid 8.2 mg/dL (2.5-8.0)
[2018-09-24 06:21] LABS: Basophils # (Auto) 0 K/mcL (0.0-0.3); Basophils % (Auto) 0.2 % (0.0-2.0); Eosinophils # (Auto) 0.2 K/mcL (0.0-0.7); Eosinophils % (Auto) 1.4 % (0.0-7.0); Granulocytes % (Auto) 83.8 % (38.0-78.0); Lymphocytes # (Auto) 0.8 K/mcL (1.5-4.8); Lymphocytes % (Auto) 7.2 % (15.5-49.0); Mean Cell Volume 75.4 fL (80.0-100.0); Mean Corpuscular HGB Conc 30.5 g/dL (31.0-36.0); Monocytes # (Auto) 0.9 K/mcL (0.1-0.9); Monocytes % (Auto) 7.4 % (1.0-12.0); Platelet Count 297 K/mcL (140-440); RBC 6.21 M/mcL (4.50-5.90)
[2018-09-24] MEDS: 0.9 % SODIUM CHLORIDE 10 ML SYRINGE IV SCH (06:26)
[2018-09-24] MEDS: GABAPENTIN 300 MG CAPSULE PO SCH (06:26)
[2018-09-24] MEDS: POTASSIUM CHLORIDE 10 MEQ TABLET PO SCH (07:58)
[2018-09-24] MEDS: INSULIN LISPRO 1 UNIT/0.01 ML UNIT SQ SCH ×2 (07:58→11:32)
[2018-09-24] MEDS: ASPIRIN 81 MG TAB.CHEW PO SCH (09:23)
[2018-09-24] MEDS: LINEZOLID 600 MG TABLET PO SCH (09:23)
[2018-09-24] MEDS: HEPARIN 5,000 UNIT/ML VIAL SQ SCH (09:23)
== END 2018-09-24 12:40 | DRG 291 ==
LOC: ED 11:47 → ICU 18:45 → MEDSUR 09-22 23:31
PROVIDERS: ADMIT Internal Medicine; ATTEND Internal Medicine

== ENCOUNTER 2021-10-15 16:17 | Inpatient (IN) ==
[2021-10-15] MEDS ORDERED: IOPAMIDOL 100 ML BOTTLE IV ONE (16:18)
[2021-10-15] MEDS ORDERED: VANCOMYCIN 1,500 MG in 0.9 % SODIUM CHLORIDE 500 ML IV ONE (16:53)
[2021-10-15] MEDS ORDERED: ACETAMINOPHEN 1,000 MG/100 ML BAG IV ONE (16:53)
--- NOTE | 2021-10-15 16:56 | Emergency Department Note ---
ED Note Addendum Note Addendum: I performed a brief screening exam and placed orders to facilitate patient care, anticipating a more comprehensive exam by another provider or me later in the patient's emergency department stay. Patient is complaining of shortness of breath. At the time of my initial evaluation, he is awake and follows commands but unable to speak. He is quite tachypneic.
[2021-10-15] MEDS ORDERED: CEFEPIME 2 GM VIAL IV ONE (17:25)
[2021-10-15] MEDS ORDERED: 0.9 % SODIUM CHLORIDE 1,000 ML IV ONE ×2 (17:30)
--- NOTE | 2021-10-15 17:32 | XRay Report ---
INDICATION: pneumonia TECHNIQUE: AP portable semiupright chest x-ray COMPARISON: Previous chest x-rays dated 10/15/2021, 02/26/2021, 05/29/2020 FINDINGS: Lungs:There are patchy infiltrates in both lungs. These are predominantly interstitial. Infiltrates appear slightly worse than on prior examination dated 10/15/2021 Appearance is consistent with pneumonia and atypical pneumonias are likely. This includes covid pneumonia. Heart, vascular:No significant cardiomegaly. Pulmonary vascularity is normal. No pulmonary edema or pulmonary congestion Mediastinum, victor manuel:No mediastinal widening. No hilar mass Pleura:No pleural fluid. No pleural-based mass or calcification Skeletal:Negative. IMPRESSION: 1. Increasing interstitial infiltrates bilaterally 2. Findings are consistent with atypical pneumonia and covid is possible Interpreted and Authenticated by: Cristian Rowland 10/15/21
[2021-10-15] MEDS ORDERED: IPRATROPIUM 2.5 ML AMPUL.NEB NEB ONE (17:33)
[2021-10-15] MEDS ORDERED: ALBUTEROL SULFATE 5 MG/ML NEB SOLUTION BOTTLE NEB ONE (17:33)
--- NOTE | 2021-10-15 17:46 | Emergency Department Note ---
HPI General Chief complaint: Shortness of Breath/Dyspnea Stated complaint: SOB Time Seen by Provider: 10/15/21 16:35 Source: other Mode of arrival: other History of Present Illness HPI Narrative: 81-year-old male with history of COPD on 3L oxygen hypertension diabetes PVD presents from [facility] with altered mentation shortness of breath. Was cultured at that facility given a dose of Rocephin. Labs at that facility did show white count of 20,000 left shift, hemoglobin 1.5, elevated BNP at 519, glucose 178, CO2 of 35, BUN of 37 and a creatinine of 1.5 GFR 46 a history of CKD. trop 0. Dimer was elevated 847. CXR mild pulmonary vascular congestion. COVID Flu rapid negative. Is is triple vax. twelve-lead EKG from the facility did show a sinus tachycardia at 106 bpm left axis deviation with baseline artifact however no ST elevations depressions T wave abnormalities noted. 1 L 0.9 NS, 2 g Rocephin. Hypoxic 70% placed on NRB by EMS, 100% on arrival to [place]. I did speak to the . States that patient does have an open wound to the left lateral foot. Missed his appointment today. Yesterday was complaining of feeling cold with chills. This morning did give him Tylenol. Appeared to be altered and so 911 was called and was taken to [place]. Related Data Home Medications Medication Instructions Recorded Confirmed spironolactone 50 mg tablet 50 mg PO QDAY 06/01/20 08/29/20 dapagliflozin 10 mg tablet 1 tab PO QDAY 10/15/21 10/15/21 ([facility]) famotidine 20 mg tablet 20 mg PO DAILY 10/15/21 10/15/21 gabapentin 300 mg capsule 300 mg PO BID 10/15/21 10/15/21 losartan 100 mg tablet 50 mg PO QDAY 10/15/21 10/15/21 torsemide 20 mg tablet 1 tab PO BID 10/15/21 10/15/21 Previous Rx's Medication Instructions Recorded aspirin 81 mg tablet,delayed 81 mg PO QDAY #90 tab 03/15/15 release donepezil 10 mg tablet (Aricept) 10 mg PO QDAY #90 tab 07/23/20 metformin 500 mg tablet,extended 1,000 mg PO QPM #180 tab 03/12/21 release 24 hr umeclidinium 62.5 mcg-vilanterol 1 inh INHALATION QDAY #60 each 12/10/20 25 mcg/actuation powdr for inhalation (Anoro Ellipta) sertraline 50 mg tablet 50 mg PO QDAY #30 tab 03/05/21 chlorthalidone 25 mg tablet 25 mg PO QDAY #100 tab 04/30/21 metoprolol succinate 25 mg capsule 25 mg PO HS #90 ea 04/30/21 sprinkle, ext. release 24 hr albuterol sulfate 90 mcg/actuation 2 inh INHALATION QID #3 each 05/22/21 breath activated powder inhaler,sensor Allergies Allergy/AdvReac Type Severity Reaction Status Date / Time umeclidinium Allergy Intermediate Diarrhea/runny Verified 08/29/20 12:02 [From Anoro Ellipta] nose vilanterol Allergy Intermediate Diarrhea/runny Verified 08/29/20 12:02 [From Anoro Ellipta] nose Nnrkozm-DCS-RxE Reductase AdvReac Severe other Verified 08/29/20 12:02 Inhibitor [Khzikxc-Qlx-Spx Reductase Inhibitor] Review of Systems ROS ROS Narrative: Unable to obtain secondary to patient's altered mentation [facility] Narrative Patient History Narrative: Narrative: Medical/Surgical/Family History All Active Problems Bladder neck contracture (Acute) Urinary retention (Acute) Prostate cancer (Acute) Malaise (Acute) Hypoxia (Acute) CHF (congestive heart failure) (Acute) Acute urinary retention (Acute) Incontinence overflow, urine (Acute) Hematuria (Acute) Acute urinary retention (Acute) Heart murmur (Chronic) Hypercarbia (Chronic) CHF (congestive heart failure) (Acute) Impaired oxygenation (Chronic) HTN (hypertension) (Chronic) Sleep apnea (Chronic) Cardiomegaly (Chronic) Bilateral leg edema (Chronic) Leg pain (Chronic) Peripheral neuropathy (Chronic) Insomnia (Chronic) Diastolic dysfunction (Chronic) Body mass index (BMI) 35 or more (Chronic) Chronic kidney disease, stage 2 (mild) (Chronic) Memory loss (Chronic) 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 monitor for now, get JENNFIER. Bilateral leg edema Body mass index (BMI) 35 or more Cardiomegaly Cellulitis and abscess doing well for now, start to wash area with chlorhexidine scrub daily Chronic kidney disease, stage 2 (mild) COPD (chronic obstructive pulmonary disease) Diabetes mellitus, type II a1c 6.8, slight improvement, pt wanting to stick to his 500mg qd regime, he has microalbuminuria, on luis not wanting to take statin. on asa Diabetic neuropathy on gabapentin, continue same, verify compliance Diastolic dysfunction Diastolic heart failure on lasix 40mg bid, and spironlactone 25mg qd getting worse, add metolazone 2.5mg 15 mins before lasix, every morning to help with diuresis. Heart murmur Loudest at the right upper sternal border but also present at the left upper sternal and left mid sternal borders History of peptic ulcer disease Remotely (history gathered 05/20/2020) HTN (hypertension) Hypercarbia HCO3 chronicly 36-38 (05-20-2020) Hyperlipidemia LDL 115, HDL 25, pt is uable to tolerate any statin, tried atorvastatin, but he self stopped, pt not wanting to go back. Hypertension, essential BP doing well, on bisoprol 5mg, losartan 100mg qd, on furosemide 40mg bid, spironolactone 25mg qd, continue same reassess 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 Idiopathic chronic venous hypertension of right lower extremity with ulcer Impaired oxygenation Insomnia Leg pain Memory loss Microalbuminuria noted on labs 03/21, on losartan 100, spironolactone also has anti proteinuric effect. Morbid obesity Obese VALENTE on CPAP no oxygen Peripheral neuropathy Prostate cancer Pulmonary fibrosis Shortness of Breath Sleep apnea On CPap Venous stasis dermatitis flakito lower extremities worsening due to increased fluid, using compression stockings, as well as diuretics lasix and adactone, metolazone added. Surgical History History of prostate surgery Hx of foot surgery right foot Family History father Essential hypertension Acute myocardial infarction Other Cellulitis and abscess History of prostate surgery Hx of foot surgery Social History Smoking Status: Former smoker Alcohol Intake Frequency: does not drink Substance Use: does not use Exam Narrative Narrative: (Please note that portions of this note may have been completed with a voice recognition program. Efforts were made to edit the dictations but occasionally words are mis-transcribed) CONSTITUTIONAL: Well-nourished well-hydrated elderly male, ill appearing. only opens eyes to verbal command, non verbal on my exam HEAD: Normocephalic. Atraumatic. EYES: EOMI. PERRL ENT: BPAP NECK: Supple. Trachea midline CARDIOVASCULAR: Adequate peripheral perfusion. S1-S2. Regular tachy 126 bpm. No murmurs rubs gallops. No JVD.+2 radial pulses bilaterally. +2 b/l pitting e shaunna with venous stasis skin changes PULMONARY: labored tachypneic with abdominal retractions. diminished BS b/l with faint b/l expiratory wheeze ABDOMINAL: Soft. Nondistended. Positive bowel sounds. Paulino in place draining yellow urine EXTREMITIES: No gross deformities. Moves all 4 extremities with good strength and tone. Skin: warm dry. no petechiae. however pallor. left lateral distal foot 2 mm opening with spontaneous moderate purulent drainage foul odor NEUROLOGY: Sensation is intact.GCS 9--E3 V1 M5 Course Vital Signs Vital signs: Vital Signs Temperature 39.1 C H 10/15/21 16:18 Pulse Rate 113 H 10/15/21 16:18 Respiratory Rate 38 H 10/15/21 16:18 Blood Pressure 183/98 10/15/21 16:18 Pulse Oximetry (%) 96 10/15/21 16:18 Temperature 39.1 C H 10/15/21 16:18 Pulse Rate 80 10/15/21 22:40 Respiratory Rate 18 10/15/21 22:40 Blood Pressure 114/66 10/15/21 22:40 Pulse Oximetry (%) 100 10/15/21 22:40 MDM MDM Narrative Medical decision making narrative: Differential gnosis includes sepsis bacteremia abscess cellulitis osteomyelitis necrotizing fasciitis Covid pneumonia bacterial pneumonia intra-abdominal etc. Extensive conversation with the patient's as well as her 2 sisters in regards to patient's critical condition at this time. CODE STATUS was discussed at length. Patient is a DNR no intubation CPR pressors. Continue medical management. Secondary to this infected left foot wound cefepime to cover for Pseudomonas and vancomycin have been ordered. 2 additional L 0.9 NS given. ABG does show significant respiratory acidosis with a pH of 7.2 CO2 of 89 relative hypoxia at 67. Patient was placed on BiPAP. Albuterol 10 Atrovent 1 have been ordered. Of note states that patient is noncompliant with his BiPAP machine at home. Twelve-lead EKG per ED MD interpretation does show sinus tachycardia at 115 bpm. Normal axis. No ST elevations or depressions noted. No T wave abnormalities. No ectopy. Normal intervals. Left anterior fascicular block per radiology. CT angio the chest is negative for pulmonary embolus. Does show bilateral pulmonary infiltrates uncertain for Covid pneumonia CT chest abdomen pelvis is negative for acute process. CT of the foot is consistent with osteomyelitis with the distal left fifth metatarsal Final Impressions 1. Acute on chronic respiratory failure on BIPAP 2. Bilateral multifocal pneumonia, COVID PCR pending 3. COPD exacerbation with hypercapnia 4. Encephalopathic 5. Sever sepsis 6. CKD 7. Osteomyelitis of the left fifth metatarsal with tunneled pinhole wound 8. DNR Critical care time is 35 minutes exclusive to this patient and excluding all billable procedures Lab Data Result diagrams: 10/15/21 16:32 Labs: Lab Results 10/15/21 10/15/21 10/15/21 Range/Units 16:32 16:32 16:32 Sodium 138 (133-145) mmol/L Potassium 3.9 (3.3-5.1) mmol/L Chloride 97 (96-108) mmol/L Carbon Dioxide 28 (22-30) mmol/L Anion Gap 13.0 (8.0-16.0) BUN 29 H (8-23) mg/dL Creatinine 1.5 H (0.7-1.2) mg/dL POC Creatinine (0.6-1.2) mg/dL GFR Calculation 43 Glucose 191 H (70-105) mg/dL Calcium 9.0 (8.6-10.4) mg/dL Troponin T 0.02 (<0.03) ng/mL C-Reactive Protein 5.20 H (0.03-0.80) mg/dL Urine Color Urine Appearance (Clear) Urine pH (5.0-9.0) Ur Specific Harris (1.000-1.035) Urine Protein (Negative) mg/dL Urine Glucose (UA) (Negative) mg/dL Urine Ketones (Negative) mg/dL Urine Occult Blood (Negative) michelle/mcL Urine Nitrate (Negative) Urine Bilirubin (Negative) mg/dL Urine Urobilinogen mg/dL Ur Leukocyte Esterase (Negative) /uL Urine RBC (0-3) /hpf Urine WBC (0-4) /hpf Ur Squamous Epith Cells (0-4) /hpf Urine Bacteria (0) /hpf Urine Mucus (None) /hpf Ur Culture Indicated? 10/15/21 10/15/21 Range/Units 17:57 18:41 Sodium (133-145) mmol/L Potassium (3.3-5.1) mmol/L Chloride (96-108) mmol/L Carbon Dioxide (22-30) mmol/L Anion Gap (8.0-16.0) BUN (8-23) mg/dL Creatinine (0.7-1.2) mg/dL POC Creatinine 1.7 H (0.6-1.2) mg/dL GFR Calculation Glucose (70-105) mg/dL Calcium (8.6-10.4) mg/dL Troponin T (<0.03) ng/mL C-Reactive Protein (0.03-0.80) mg/dL Urine Color Yellow Urine Appearance Clear (Clear) Urine pH 6.0 (5.0-9.0) Ur Specific Harris 1.020 (1.000-1.035) Urine Protein Negative (Negative) mg/dL Urine Glucose (UA) 500 mg/dl A (Negative) mg/dL Urine Ketones Negative (Negative) mg/dL Urine Occult Blood Moderate A (Negative) michelle/mcL Urine Nitrate Negative (Negative) Urine Bilirubin Negative (Negative) mg/dL Urine Urobilinogen Normal mg/dL Ur Leukocyte Esterase Negative (Negative) /uL Urine RBC 0 (0-3) /hpf Urine WBC < 1 (0-4) /hpf Ur Squamous Epith Cells 0 (0-4) /hpf Urine Bacteria None (0) /hpf Urine Mucus Few A (None) /hpf Ur Culture Indicated? No ED POC Tests ED POC Tests: MAUREEN - Influenza A Negative MAUREEN - Influenza B Negative MAUREEN - SARS Antigen Negative Discharge Plan Patient/Caregiver Discharge Instructions Pt seen by [employer]SEMBLER/PA only: No Patient Disposition: Xfer As Inpt ([facility]) Condition: Critical Discharge Date/Time: 10/15/21 22:46
[2021-10-15 18:22] LABS: Blood Urea Nitrogen 29 mg/dL (8-23); Carbon Dioxide 28 mmol/L (22-30); Chloride 97 mmol/L (96-108); Glomerular Filtration Rate 43; Glucose 191 mg/dL (70-105)
--- NOTE | 2021-10-15 19:03 | Internal Med History&Physical ---
HPI History of Present Illness Patient information: Note initiated : 10/15/21 at 7:01 pm Service Date, if different from initiated Date: [] Patient: Yaakov Jacobson 81 y/o M admitted on for Shortness of breath. Chief Complaint: [] Chief complaint: confusion History of present illness: Mr. Jacobson is a 81 year old male with a history of hypertension, type 2 diabetes mellitus, COPD with chronic hypoxia, peripheral vascular disease presented to an outside hospital for confusion. Per available documents and report from the emergency department provider, the patient appeared to be septic at that time. The patient was given a dose of ceftriaxone and referred to [facility] emergency department. Upon arrival, the patient appeared to be septic, he also had an increased oxygen requirement, arterial blood gas was consistent with respiratory acidosis. The patient was started on broad-spectrum antibiotics, IV fluids, BiPAP and oxygen supplementation. The cause of sepsis is felt to be a left foot wound that was draining purulent fluid. Chest x-ray showed bilateral pulmonary infiltrates. CODE STATUS was discussed in the emergency department, the patient wishes to be DNR/DNI. Hospital medicine was asked to admit the patient for further management. In the emergency department, the patient was unable to provide a history due to encephalopathy likely secondary to sepsis. He appeared to be breathing comfortably with BiPAP, vitals had improved after IV fluid and broad-spectrum antibiotics. Review of system: Unable to obtain due to altered mental status Physical exam Head: Atraumatic, normal inspection. Eyes: normal appearance, no scleral icterus. Neck: full ROM Respiratory: Appears to be breathing comfortably on BiPAP, respiratory rate in the low to mid 20s. Cardiovascular: normal rate and rhythm, S1, S2. GI/Abdominal: Obesely distended, soft, nontender, no guarding. Extremities: full range of motion, nontender. Neurological: CN II-XII intact, intact motor, intact sensation. Psychiatric: normal mood, impaired cognition. Skin: Multiple open skin wounds on left lower extremity, wound on left foot draining purulent material. PFSH PFSH All Active Problems Bladder neck contracture (Acute) Urinary retention (Acute) Prostate cancer (Acute) Malaise (Acute) Hypoxia (Acute) CHF (congestive heart failure) (Acute) Acute urinary retention (Acute) Incontinence overflow, urine (Acute) Hematuria (Acute) Acute urinary retention (Acute) Heart murmur (Chronic) Hypercarbia (Chronic) CHF (congestive heart failure) (Acute) Impaired oxygenation (Chronic) HTN (hypertension) (Chronic) Sleep apnea (Chronic) Cardiomegaly (Chronic) Bilateral leg edema (Chronic) Leg pain (Chronic) Peripheral neuropathy (Chronic) Insomnia (Chronic) Diastolic dysfunction (Chronic) Body mass index (BMI) 35 or more (Chronic) Chronic kidney disease, stage 2 (mild) (Chronic) Memory loss (Chronic) 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 monitor for now, get JENNIFER. Bilateral leg edema Body mass index (BMI) 35 or more Cardiomegaly Cellulitis and abscess doing well for now, start to wash area with chlorhexidine scrub daily Chronic kidney disease, stage 2 (mild) COPD (chronic obstructive pulmonary disease) Diabetes mellitus, type II a1c 6.8, slight improvement, pt wanting to stick to his 500mg qd regime, he has microalbuminuria, on luis not wanting to take statin. on asa Diabetic neuropathy on gabapentin, continue same, verify compliance Diastolic dysfunction Diastolic heart failure on lasix 40mg bid, and spironlactone 25mg qd getting worse, add metolazone 2.5mg 15 mins before lasix, every morning to help with diuresis. Heart murmur Loudest at the right upper sternal border but also present at the left upper sternal and left mid sternal borders History of peptic ulcer disease Remotely (history gathered 05/20/2020) HTN (hypertension) Hypercarbia HCO3 chronicly 36-38 (05-20-2020) Hyperlipidemia LDL 115, HDL 25, pt is uable to tolerate any statin, tried atorvastatin, but he self stopped, pt not wanting to go back. Hypertension, essential BP doing well, on bisoprol 5mg, losartan 100mg qd, on furosemide 40mg bid, spironolactone 25mg qd, continue same reassess 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 Idiopathic chronic venous hypertension of right lower extremity with ulcer Impaired oxygenation Insomnia Leg pain Memory loss Microalbuminuria noted on labs 03/21, on losartan 100, spironolactone also has anti proteinuric effect. Morbid obesity Obese VALENTE on CPAP no oxygen Peripheral neuropathy Prostate cancer Pulmonary fibrosis Shortness of Breath Sleep apnea On CPap Venous stasis dermatitis flakito lower extremities worsening due to increased fluid, using compression stockings, as well as diuretics lasix and adactone, metolazone added. Surgical History History of prostate surgery Hx of foot surgery right foot Family History father Essential hypertension Acute myocardial infarction Other Cellulitis and abscess History of prostate surgery Hx of foot surgery Social History marital status: alcohol intake frequency: does not drink substance use type: does not use MEDS/ALLERGIES Home Medications and Allergies Home Medications Medication Instructions Recorded Confirmed Type aspirin 81 mg tablet,delayed 81 mg PO QDAY #90 tab 03/15/15 10/15/21 Rx release spironolactone 50 mg tablet 50 mg PO QDAY 06/01/20 08/29/20 History donepezil 10 mg tablet (Aricept) 10 mg PO QDAY #90 tab 07/23/20 10/15/21 Rx metformin 500 mg tablet,extended 1,000 mg PO QPM #180 tab 11/16/20 Rx release 24 hr umeclidinium 62.5 mcg-vilanterol 1 inh INHALATION QDAY #60 each 12/10/20 Rx 25 mcg/actuation powdr for inhalation (Anoro Ellipta) sertraline 50 mg tablet 50 mg PO QDAY #30 tab 03/05/21 10/15/21 Rx chlorthalidone 25 mg tablet 25 mg PO QDAY #100 tab 04/30/21 Rx metoprolol succinate 25 mg capsule 25 mg PO HS #90 ea 04/30/21 10/15/21 Rx sprinkle, ext. release 24 hr albuterol sulfate 90 mcg/actuation 2 inh INHALATION QID #3 each 05/22/21 Rx breath activated powder inhaler,sensor dapagliflozin 10 mg tablet 1 tab PO QDAY 10/15/21 10/15/21 History (Farxiga) famotidine 20 mg tablet 20 mg PO DAILY 10/15/21 10/15/21 History gabapentin 300 mg capsule 300 mg PO BID 10/15/21 10/15/21 History losartan 100 mg tablet 50 mg PO QDAY 10/15/21 10/15/21 History torsemide 20 mg tablet 1 tab PO BID 10/15/21 10/15/21 History Allergies Allergy/AdvReac Type Severity Reaction Status Date / Time umeclidinium Allergy Intermediate Diarrhea/runny Verified 08/29/20 12:02 [From Anoro Ellipta] nose vilanterol Allergy Intermediate Diarrhea/runny Verified 08/29/20 12:02 [From Anoro Ellipta] nose Fcbowye-NQE-RmY Reductase AdvReac Severe other Verified 08/29/20 12:02 Inhibitor [Qeqfxxf-Oeo-Bre Reductase Inhibitor] EXAM Constitutional Vitals: Temp Pulse Resp BP Pulse Ox 102.4 F H 115 H 34 H 133/63 99 10/15/21 16:18 10/15/21 18:38 10/15/21 18:38 10/15/21 17:51 10/15/21 18:38 DATA Data Completed and Pending Labs: Labs from last 24 hours 10/15/21 10/15/21 10/15/21 18:41 17:57 16:32 Sodium Potassium Chloride Carbon Dioxide Anion Gap BUN Creatinine POC Creatinine 1.7 H GFR Calculation Glucose Calcium Troponin T C-Reactive Protein Pending Urine Color Pending Urine Appearance Pending Urine pH Pending Ur Specific [place] Pending Urine Protein Pending Urine Glucose (UA) Pending Urine Ketones Pending Urine Occult Blood Pending Urine Nitrate Pending Urine Bilirubin Pending Urine Urobilinogen Pending Ur Leukocyte Esterase Pending 10/15/21 10/15/21 16:32 16:32 Sodium 138 Potassium 3.9 Chloride 97 Carbon Dioxide 28 Anion Gap 13.0 BUN 29 H Creatinine 1.5 H POC Creatinine GFR Calculation 43 Glucose 191 H Calcium 9.0 Troponin T 0.02 C-Reactive Protein Urine Color Urine Appearance Urine pH Ur Specific [place] Urine Protein Urine Glucose (UA) Urine Ketones Urine Occult Blood Urine Nitrate Urine Bilirubin Urine Urobilinogen Ur Leukocyte Esterase A/P Narrative A/P Narrative: Assessment: 81 year old male with a history of hypertension, type 2 DM, CKD, HFpEF, COPD with chronic hypoxia, depression, obesity admitted for sepsis likely secondary to a diabetic foot wound complicated by acute hypoxic respiratory failure and hypercapnic respiratory failure. The patient has bilateral pulmonary infiltrates of unknown cause. The patient is currently hemodynamically stable, lactic acid was normal. #Sepsis likely secondary to diabetic left foot wound #Acute on chronic hypoxic respiratory failure #Hypercapnic respiratory failure #Respiratory acidosis #Bilateral pulmonary infiltrates of uncertain cause #Elevated D-dimer #COPD #Chronic kidney disease #Type 2 diabetes mellitus #Essential hypertension #HFpEF #Depression #Obesity Plan -Vancomycin and Cefepime. -IV fluid, monitor blood pressure and volume status. -Oxygen supplementation as needed. -BiPAP-follow pH and CO2 with VBG. -Follow all cultures. -Check CRP. -PANTHER PCR. -Follow up on CT chest/abdomen/pelvis head and foot from ED. -Lantus and SSI-med. -Duoneb Q6 hrs and albuterol prn. -Hold home Metformin, Dapagliflozin Chlorthalidone, Losartan, Spironolactone, Torsemide. -Continue Aspirin, Toprol, Aspirin, Gabapentin. -Diabetic diet, n.p.o. at midnight. -Consult podiatry tomorrow. -PT consult. -DVT ppx: heparin SQ -Code status: DNR/DNI Time Spent With Patient Time: Total time spent is greater than 50% in coordination of care (as documented) at patient's floor/unit and/or counseling patient:
--- NOTE | 2021-10-15 19:30 | Cat Scan Report ---
INDICATION: ams COMPARISON: None. TECHNIQUE: Axial noncontrast-enhanced images through the brain. Sagittally and coronally reformatted images. FINDINGS: Cerebral hemispheres:Negative. No intra-axial abnormality. No intra-axial hematoma. No localized mass effect. Ventricles are enlarged. There is periventricular low-attenuation. Appearance is most consistent with deep substance loss and small vessel ischemic change. Normal pressure hydrocephalus is not excluded in the appropriate clinical circumstances. Brainstem and cerebellum:No intra-axial abnormality Extra-axial:No acute hemorrhage. No subdural or epidural hematoma. No subarachnoid hemorrhage. Basilar cisterns are normal Calvarial:No calvarial fracture. No lytic lesion Temporal bones are negative. No destructive lesions Soft tissue, orbits, sinuses:Orbits and visualized facial soft tissues and paranasal sinuses are negative IMPRESSION: 1. No acute intracranial hemorrhage. No acute focal intra-axial abnormality 2. Enlarged ventricles. Periventricular white matter abnormality is most consistent with small vessel ischemic change. The exam was performed using radiation dose optimization techniques including, but not limited to, automated exposure control, adjustment of the mA and/or kV according to patient size and use of iterative reconstruction technique. Interpreted and Authenticated by: Cristian Rowland 10/15/21
--- NOTE | 2021-10-15 19:37 | Cat Scan Report ---
INDICATION: sepsis COMPARISON: Previous chest x-rays dated 10/15/2021 and 02/26/2021 81 TECHNIQUE: Axial images obtained through the chest. ml Isovue 370 injected intravenously, and scanning was performed during pulmonary arterial phase. Sagittally and coronally reformatted images were obtained. MIP reformatted images. FINDINGS: Lungs:There are bilateral pulmonary parenchymal infiltrates. Infiltrates are groundglass in character as well as more focal areas of consolidation. Infiltrates are peripherally based and consistent with atypical pneumonia, likely covid Mediastinum, vascular:Main pulmonary artery, right pulmonary artery, left pulmonary artery are negative. No intraluminal filling defects. No lobar, segmental, or subsegmental emboli. Thoracic aorta is negative. No aneurysmal dilatation. There is calcification of the descending thoracic aorta No pathologic mediastinal or hilar adenopathy Heart:No cardiomegaly. No pericardial effusion. Prominent coronary artery calcification. Pleura:There is mild elevation right hemidiaphragm. No significant pleural effusion. Axilla, supraclavicular regions, chest wall:No pathologic axillary or supraclavicular adenopathy. Musculoskeletal:Negative thoracic spine. No compression fracture. No lytic lesion. No rib or sternal lesions Upper Abdomen:Negative IMPRESSION: 1. Bilateral pulmonary parenchymal infiltrates consistent with pneumonia. Covid pneumonia is likely 2. Negative pulmonary CTA. No pulmonary embolism 3. Calcified coronary artery disease The exam was performed using radiation dose optimization techniques including, but not limited to, automated exposure control, adjustment of the mA and/or kV according to patient size and use of iterative reconstruction technique. Interpreted and Authenticated by: Cristian Rowland 10/15/21
[2021-10-15 19:46] LABS: Appearance,Urine Clear (Clear); Bilirubin,Urine Negative (Negative); Color,Urine Yellow; Culture Indicated,Urine No; Ketones,Urine Negative (Negative); Leukocyte Esterase,Urine Negative /uL (Negative); Mucus,Urine FEW /hpf; Nitrate,Urine Negative (Negative); Protein,Urine Negative (Negative); Urine Blood Moderate ery/mcL (Negative); Urine RBC 0 /hpf (0-3); Urine Squamous Epithelial Cell 0 /hpf (0-4); Urine WBC < 1 /hpf (0-4); Urobilinogen,Urine Normal
--- NOTE | 2021-10-15 19:46 | Cat Scan Report ---
INDICATION: PE/sepsis COMPARISON: Previous CT scan dated 03/02/2006 TECHNIQUE: Axial images were obtained through the abdomen and pelvis. Sagittally and coronally reformatted images. 80 mL Isovue 370 injected intravenously. Oral contrast material was not administered FINDINGS: Lung bases:A lateral pulmonary parenchymal infiltrates are described in a separate dictation. Appearance is consistent with pneumonia Liver:Negative. No focal intrahepatic mass. No focal abnormality. Liver contour is smooth. No evidence for cirrhosis Gallbladder, bilary:No calcified gallstones. No gallbladder wall thickening. No dilated intra or extrahepatic bile ducts. Spleen:No splenomegaly. Normal enhancement of splenic and portal veins. Pancreas:No pancreatic mass. No peripancreatic abnormality Adrenal glands:Negative Kidneys,ureters,bladder:No solid renal mass. No hydronephrosis. No obstructing or nonobstructing calculi. No perinephric abscess No hydroureter. No ureteral calculus. There is a Paulino catheter within the urinary bladder. There is some intravesical gas which is nonspecific in this catheter as patient. Gastrointestinal:No detectable colonic mass. There is no diverticulitis. Negative small bowel. No mechanical small bowel obstruction. No bowel wall thickening. No focal abnormality. Negative stomach and duodenum. No focal abnormality. Appendix: The appendix is not well visualized. No evidence for appendicitis Vascular:There is atherosclerotic calcification of the abdominal aorta. No abdominal aortic aneurysm. Celiac trunk and superior mesenteric artery are negative. No stenosis. Lymphatic:No retroperitoneal or mesenteric adenopathy Mesentery, peritoneum: No free intraperitoneal fluid. No mesenteric or retroperitoneal mass. No intra-abdominal abscess. Multiple clips in the retroperitoneum with the pelvis. There is no pneumoperitoneum Reproductive:Probable previous prostatectomy. Musculoskeletal:No lumbar compression fractures. Sacrum and pelvis are negative. No hip fracture. Severe degenerative disc disease at L5-S1 No abdominal wall or inguinal hernia IMPRESSION: 1. No intra-abdominal abscess. No acute or focal abnormality 2. Atherosclerotic calcification. No abdominal aortic aneurysm 3. Previous pelvic surgery consistent with prostatectomy 4. Degenerative disc disease at L5-S1 The exam was performed using radiation dose optimization techniques including, but not limited to, automated exposure control, adjustment of the mA and/or kV according to patient size and use of iterative reconstruction technique. Interpreted and Authenticated by: Cristian Rowland 10/15/21
--- NOTE | 2021-10-15 19:54 | Cat Scan Report ---
INDICATION: left lateral drainage wound TECHNIQUE: Axial images through the left foot. Examination was performed following chest, abdomen, pelvis CT scan. This is a postcontrast enhanced study. Sagittal and coronal reformatted images COMPARISON: Plain film examination dated 10/15/2021 FINDINGS: Distal left fifth metatarsal is abnormal. There is irregular lucency with areas of cortical loss. There is associated soft tissue abnormality with a focal ulcer along the plantar aspects of the lateral left forefoot. Findings are consistent with focal ulcer and osteomyelitis of the distal left fifth metatarsal. No other focal areas of cortical destruction. No other evidence for osteomyelitis. No well-defined soft tissue fluid collection. No soft tissue gas bubbles or evidence for gas gangrene. IMPRESSION: 1. Focal ulcer superficial to the distal left fifth metatarsal 2. Findings consistent with osteomyelitis of the distal left fifth metatarsal Interpreted and Authenticated by: Cristian Rowland 10/15/21
[2021-10-15] MEDS ORDERED: [UNRECOGNIZED DRUG - OTHER] PO SCH (22:51)
[2021-10-15] MEDS ORDERED: DEXTROSE 50% 50 ML VIAL IV PRN (22:51)
[2021-10-15] MEDS ORDERED: ONDANSETRON 4 MG/2 ML VIAL IV PRN (22:51)
[2021-10-15] MEDS ORDERED: VANCOMYCIN PER PHARMACY IV ONE (22:51)
[2021-10-15] MEDS ORDERED: ALBUTEROL SULFATE 2.5 MG/3 ML NEBULIZER NEB PRN (22:51)
[2021-10-15] MEDS ORDERED: LACTULOSE 20 GM/30 ML ORAL.SOL PO PRN (22:51)
[2021-10-15] MEDS ORDERED: METOPROLOL SUCCINATE 25 MG PO SCH (22:51)
[2021-10-15] MEDS ORDERED: metroNIDAZOLE 500 MG/100 ML BAG IV SCH (22:51)
[2021-10-15] MEDS ORDERED: SENNOSIDES 1 TABLET PO PRN (22:51)
[2021-10-15] MEDS ORDERED: DEXTROSE 31 GM ORAL.SUSP PO PRN (22:51)
[2021-10-15] MEDS ORDERED: ACETAMINOPHEN 325 MG TABLET PO PRN (22:51)
[2021-10-15] MEDS: 0.9 % SODIUM CHLORIDE 1,000 ML IV SCH (23:06)
[2021-10-15 23:37] LABS: ABG Methemoglobin 0.3 % (0.4-1.5); Total Hemoglobin 10.9 gm/Dl (13.5-16.5); VBG Base Excess 1 (-2-3); VBG HCO3 29.5 mmol/L (24.0-28.0); VBG Oxygen Saturation 60.4 % (40.0-70.0); VBG PCO2 70.8 mmHg (41.0-51.0); VBG PH 7.24 U (7.32-7.42); VBG Total CO2 31.7 mmol/L (25.0-29.0)
[2021-10-16] MEDS ORDERED: HEPARIN 5,000 UNIT/ML VIAL ONE (00:07)
[2021-10-16] MEDS ORDERED: GABAPENTIN 300 MG CAPSULE ONE (00:07)
[2021-10-16] MEDS: DOCUSATE SODIUM 100 MG CAPSULE PO SCH ×3 (00:15→21:05)
[2021-10-16] MEDS: HEPARIN 5,000 UNIT/ML VIAL SQ SCH ×3 (00:15→21:05)
[2021-10-16] MEDS: INSULIN GLARGINE, HUMAN 1 UNIT/0.01 ML SQ SCH ×2 (00:16→21:05)
[2021-10-16] MEDS: INSULIN LISPRO 1 UNIT/0.01 ML UNIT SQ SCH ×5 (00:16→21:05)
[2021-10-16] MEDS: CEFEPIME 2 GM VIAL IV SCH ×4 (00:17→22:11)
[2021-10-16] MEDS: GABAPENTIN 300 MG CAPSULE PO SCH ×3 (00:18→21:05)
[2021-10-16] MEDS: 0.9 % SODIUM CHLORIDE 10 ML SYRINGE IV SCH ×4 (00:18→22:12)
[2021-10-16] MEDS ORDERED: INSULIN GLARGINE, HUMAN 1 UNIT/0.01 ML SQ ONE (00:20)
[2021-10-16] MEDS: IPRATROPIUM/ALBUTEROL 3 ML AMPUL.NEB NEB SCH ×5 (00:21→19:10)
[2021-10-16] MEDS ORDERED: INSULIN LISPRO 1 UNIT/0.01 ML UNIT SQ ONE (00:21)
[2021-10-16] MEDS ORDERED: IPRATROPIUM/ALBUTEROL 3 ML AMPUL.NEB NEB ONE (00:28)
[2021-10-16 00:45] LABS: ALT/SGPT 12 U/L (<40); AST/SGOT 14 U/L (<40); Albumin 3.3 gm/dL (3.2-5.2); Albumin/Globulin Ratio 0.8 (1.0-2.3); Alkaline Phosphatase 46 U/L (39-117); Bilirubin,Direct < 0.2 mg/dL (0-0.3); Bilirubin,Total 0.2 mg/dL (0.1-1.0); Blood Urea Nitrogen 28 mg/dL (8-23); Carbon Dioxide 25 mmol/L (22-30); Chloride 104 mmol/L (96-108); Globulin 3.9 gm/dL (2.2-3.7); Glomerular Filtration Rate 40; Glucose 218 mg/dL (70-105); Lactate Dehydrogenase 161 U/L (135-225); Phosphorous 4.5 mg/dL (2.5-4.5); Triglycerides 128 mg/dL (<150); Uric Acid 7.7 mg/dL (2.5-8.0)
[2021-10-16] MEDS ORDERED: METOPROLOL SUCCINATE 25 MG TAB.XL.24H PO ONE (00:53)
[2021-10-16] MEDS: metroNIDAZOLE 500 MG TABLET PO SCH ×3 (01:19→15:47)
[2021-10-16] MEDS ORDERED: ONDANSETRON 4 MG/2 ML VIAL ONE ×2 (04:28→11:45)
[2021-10-16] MEDS: 0.9 % SODIUM CHLORIDE 1,000 ML IV SCH ×3 (05:43→17:25)
[2021-10-16] MEDS ORDERED: VANCOMYCIN PER PHARMACY IV SCH (06:15)
--- NOTE | 2021-10-16 06:18 | Ultrasound Report ---
INDICATION: evaluate for peripheral artery disease TECHNIQUE: Emergency limited arterial duplex examination performed. COMPARISON: None. FINDINGS: Limited evaluation of the left lower extremity. Left common femoral artery is patent with triphasic waveform. Maximum systolic flow velocity measures 175 cm/s. There is no hemodynamically significant stenosis. Left profunda femoris artery is patent and within normal limits There is a hemodynamically significant stenosis in the proximal left superficial femoral artery. Maximum systolic flow velocity measures 312 cm/s a velocity of 5.7. Appearance is consistent with approximately 75% or greater diameter stenosis. There is mild velocity elevation within the left popliteal artery but no evidence for hemodynamically significant stenosis or occlusion. Anterior tibial artery, peroneal artery, posterior tibial artery are patent without occlusion or detectable stenosis IMPRESSION: 1. Peripheral vascular disease within the left lower extremity 2. Hemodynamically significant stenosis in the left superficial femoral artery. Interpreted and Authenticated by: Cristian Rowland 10/16/21
[2021-10-16 07:10] LABS: Hemoglobin A1C 6.6 % Hgb (4.0-6.0)
[2021-10-16 07:19] LABS: ALT/SGPT 13 U/L (<40); AST/SGOT 15 U/L (<40); Albumin 3.3 gm/dL (3.2-5.2); Albumin/Globulin Ratio 0.9 (1.0-2.3); Alkaline Phosphatase 52 U/L (39-117); Bilirubin,Direct < 0.2 mg/dL (0-0.3); Bilirubin,Total 0.2 mg/dL (0.1-1.0); Blood Urea Nitrogen 25 mg/dL (8-23); Calcium 8.2 mg/dL (8.6-10.4); Carbon Dioxide 25 mmol/L (22-30); Chloride 105 mmol/L (96-108); Globulin 3.6 gm/dL (2.2-3.7); Glomerular Filtration Rate 47; Glucose 189 mg/dL (70-105); Lactate Dehydrogenase 243 U/L (135-225); Triglycerides 124 mg/dL (<150); Uric Acid 7.4 mg/dL (2.5-8.0)
--- NOTE | 2021-10-16 08:02 | EKG ---
[facility] Test Date: 2021-10-15 Pat Name: Yaakov Jacobson Department: ED Room: Gender: Male [employer] Helper: VANDANA : 1940 Requested By: Robert Meade Order Number: [id number] Reading MD: Gayle Deluna D.O. Measurements Intervals [place] Rate: 115 P: 37 SC: 195 QRS: -63 QRSD: 101 T: 55 QT: 317 QTc: 439 Interpretive Statements Sinus tachycardia Left anterior fascicular block Borderline low voltage, extremity leads Abnormal R-wave progression, late transition Electronically Signed On 10-16-2021 8:01:30 PST by Gayle Deluna D.O. /[id number]/[email or web address]/[id number]
[2021-10-16] MEDS: DONEPEZIL 10 MG TABLET PO SCH (08:21)
[2021-10-16] MEDS: FAMOTIDINE 20 MG TABLET PO SCH (08:22)
[2021-10-16] MEDS: SERTRALINE 50 MG TABLET PO SCH (08:22)
[2021-10-16 09:49] LABS: Hematocrit 36.7 % (40.1-51.0); Hemoglobin 10.7 g/dL (13.7-17.5); Mean Cell Volume 96.6 fL (80.0-100.0); Mean Corpuscular HGB Conc 29.2 g/dL (31.0-36.0); Mean Platelet Volume 11.1 fL (7.4-10.4); Platelet Count 222 K/mcL (140-440); Red Cell Distribution Width 14.6 % (11.5-14.5); WBC 36.6 K/mcL (4.5-11.0)
[2021-10-16 09:53] LABS: Anisocytosis FEW (None Seen); Band Neutrophils % 25 % (0-10); Monocytes % (Manual) 4 % (1-12); Platelet Estimate NORMAL (Normal); RBC Morphology ABNORMAL (Normal); Segmented Neutrophils % 71 % (38-78)
--- NOTE | 2021-10-16 09:55 | Orthopedic Consult Note ---
HPI Data of Consult Consult date: 10/16/21 Primary Care Provider: Keshav Crow Consult Narrative Patient Information: Note initiated : 10/16/21 at 9:52 am Service Date, if different from initiated Date: [] Patient: Yaakov Jacobson 81 y/o M admitted on 10/15/21 for Shortness of breath. Chief Complaint: [Shortness of breath] Chief complaint: Shortness of breath Reason for consult: Bone infection left foot cc:: CC: Diomedes Queen MD [facility] All Active Problems Bladder neck contracture (Acute) Urinary retention (Acute) Prostate cancer (Acute) Malaise (Acute) Hypoxia (Acute) CHF (congestive heart failure) (Acute) Acute urinary retention (Acute) Incontinence overflow, urine (Acute) Hematuria (Acute) Acute urinary retention (Acute) Heart murmur (Chronic) Hypercarbia (Chronic) CHF (congestive heart failure) (Acute) Impaired oxygenation (Chronic) HTN (hypertension) (Chronic) Sleep apnea (Chronic) Cardiomegaly (Chronic) Bilateral leg edema (Chronic) Leg pain (Chronic) Peripheral neuropathy (Chronic) Insomnia (Chronic) Diastolic dysfunction (Chronic) Body mass index (BMI) 35 or more (Chronic) Chronic kidney disease, stage 2 (mild) (Chronic) Memory loss (Chronic) 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 monitor for now, get JENNIFER. Bilateral leg edema Body mass index (BMI) 35 or more Cardiomegaly Cellulitis and abscess doing well for now, start to wash area with chlorhexidine scrub daily Chronic kidney disease, stage 2 (mild) COPD (chronic obstructive pulmonary disease) Diabetes mellitus, type II a1c 6.8, slight improvement, pt wanting to stick to his 500mg qd regime, he has microalbuminuria, on luis not wanting to take statin. on asa Diabetic neuropathy on gabapentin, continue same, verify compliance Diastolic dysfunction Diastolic heart failure on lasix 40mg bid, and spironlactone 25mg qd getting worse, add metolazone 2.5mg 15 mins before lasix, every morning to help with diuresis. Heart murmur Loudest at the right upper sternal border but also present at the left upper sternal and left mid sternal borders History of peptic ulcer disease Remotely (history gathered 05/20/2020) HTN (hypertension) Hypercarbia HCO3 chronicly 36-38 (05-20-2020) Hyperlipidemia LDL 115, HDL 25, pt is uable to tolerate any statin, tried atorvastatin, but he self stopped, pt not wanting to go back. Hypertension, essential BP doing well, on bisoprol 5mg, losartan 100mg qd, on furosemide 40mg bid, spironolactone 25mg qd, continue same reassess 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 Idiopathic chronic venous hypertension of right lower extremity with ulcer Impaired oxygenation Insomnia Leg pain Memory loss Microalbuminuria noted on labs 03/21, on losartan 100, spironolactone also has anti proteinuric effect. Morbid obesity Obese VALENTE on CPAP no oxygen Peripheral neuropathy Prostate cancer Pulmonary fibrosis Shortness of Breath Sleep apnea On CPap Venous stasis dermatitis flakito lower extremities worsening due to increased fluid, using compression stockings, as well as diuretics lasix and adactone, metolazone added. Surgical History History of prostate surgery Hx of foot surgery right foot Family History father Essential hypertension Acute myocardial infarction Other Cellulitis and abscess History of prostate surgery Hx of foot surgery Social History marital status: alcohol intake frequency: does not drink substance use type: does not use MEDS/ALLERGIES Home Medications and Allergies Home Medications Medication Instructions Recorded Confirmed Type aspirin 81 mg tablet,delayed 81 mg PO QDAY #90 tab 03/15/15 10/15/21 Rx release spironolactone 50 mg tablet 50 mg PO QDAY 06/01/20 08/29/20 History donepezil 10 mg tablet (Aricept) 10 mg PO QDAY #90 tab 07/23/20 10/15/21 Rx metformin 500 mg tablet,extended 1,000 mg PO QPM #180 tab 11/16/20 Rx release 24 hr umeclidinium 62.5 mcg-vilanterol 1 inh INHALATION QDAY #60 each 12/10/20 Rx 25 mcg/actuation powdr for inhalation (Anoro Ellipta) sertraline 50 mg tablet 50 mg PO QDAY #30 tab 03/05/21 10/15/21 Rx chlorthalidone 25 mg tablet 25 mg PO QDAY #100 tab 04/30/21 Rx metoprolol succinate 25 mg capsule 25 mg PO HS #90 ea 04/30/21 10/15/21 Rx sprinkle, ext. release 24 hr albuterol sulfate 90 mcg/actuation 2 inh INHALATION QID #3 each 05/22/21 Rx breath activated powder inhaler,sensor dapagliflozin 10 mg tablet 1 tab PO QDAY 10/15/21 10/15/21 History (Farxiga) famotidine 20 mg tablet 20 mg PO DAILY 10/15/21 10/15/21 History gabapentin 300 mg capsule 300 mg PO BID 10/15/21 10/15/21 History losartan 100 mg tablet 50 mg PO QDAY 10/15/21 10/15/21 History torsemide 20 mg tablet 1 tab PO BID 10/15/21 10/15/21 History Allergies Allergy/AdvReac Type Severity Reaction Status Date / Time umeclidinium Allergy Intermediate Diarrhea/runny Verified 08/29/20 12:02 [From Anoro Ellipta] nose vilanterol Allergy Intermediate Diarrhea/runny Verified 08/29/20 12:02 [From Anoro Ellipta] nose [id number]-LdD Reductase AdvReac Severe other Verified 08/29/20 12:02 Inhibitor [Slscxjd-Gmp-Axx Reductase Inhibitor] Physical Examination Narrative Narrative: Narrative: Ankle & Foot left: Ankle appearance: swelling and erythema Foot appearance: swelling and erythema Effusion grade: grade 2 Tenderness with palpation: plantar foot A/P Narrative A/P Narrative: Diagnosis is osteomyelitis left fifth metatarsal Plan is partially taken left fifth metatarsal seems possible to operating room and continue IV antibiotic therapy. Time Spent With Patient Time: Total time spent is greater than 50% in coordination of care (as documented) at patient's floor/unit and/or counseling patient:
[2021-10-16] MEDS: VANCOMYCIN 1,000 MG in 0.9 % SODIUM CHLORIDE 250 ML IV SCH ×2 (10:50→21:06)
[2021-10-16] MEDS: ASPIRIN 81 MG TAB.CHEW PO SCH (10:52)
--- NOTE | 2021-10-16 11:44 | Brief Operative Note ---
Brief Operative Note Date of procedure: 10/16/21 Pre-op diagnosis: osteomyelitis left fifth metatarsal Post-op diagnosis: same Procedure: partial amputation left fifth metatarsal Grafts/Implants: No Anesthesia: MAC and local Complications: none Surgeon: Cedrick Sutton Estimated blood loss (cc): 50 Specimens Removed/Pathology: other (Bone culture left fifth metatarsal, deep tissue culture left foot wound) Condition: other (fair) Disposition: floor
[2021-10-16] MEDS ORDERED: PROPOFOL 200 MG/20 ML VIAL IV ONE (11:45)
[2021-10-16] MEDS ORDERED: DEXAMETHASONE 10 MG/ML VIAL ONE (11:45)
[2021-10-16] MEDS ORDERED: LIDOCAINE HCL/PF 100 MG/5 ML SYRINGE IV ONE (11:45)
[2021-10-16] MEDS ORDERED: KETAMINE 50 MG/ML Syringe (ANEST) IV ONE (11:45)
[2021-10-16] MEDS ORDERED: methylPREDNISolone SOD SUCC 125 MG/2 ML VIAL ONE (11:45)
[2021-10-16] MEDS ORDERED: BUPIVACAINE 0.5% 50 ML VIAL IJ ONE (11:59)
[2021-10-16] MEDS ORDERED: VANCOMYCIN 1 GM VIAL TOPICAL ONE (12:15)
--- NOTE | 2021-10-16 14:46 | Operative Note ---
DATE OF OPERATION: 10/16/2021 PREOPERATIVE DIAGNOSIS: Osteomyelitis, left fifth metatarsal. POSTOPERATIVE DIAGNOSIS: Osteomyelitis, left fifth metatarsal. PROCEDURE: Partial amputation, left fifth metatarsal. SURGEON: Cedrick Sutton DPM. IMPLANTS: None. ANESTHESIA: Local, MAC. COMPLICATIONS: None. BLOOD LOSS: 50 mL. SPECIMENS: Bone culture, left fifth metatarsal. Deep tissue culture, left foot wound. CONDITION: Fair. DISPOSITION: Floor. PROCEDURE IN DETAIL: The patient was brought to the operating room, remained on the operative table. He was brought under mild sedation. A total of 10 mL of 0.5% Marcaine plain infiltrated in a Lorenzo block to the lateral aspect of the left foot following the standard prep procedures. A 4 cm incision was created at the dorsolateral aspect of the left foot. Full-thickness flap was created. The distal half of the left fifth metatarsal was removed with a sagittal saw. There was noted to be purulent drainage. Inspection of the bone revealed osteomyelitis, consistent with the preoperative CT scan. Area was then irrigated with copious amounts of sterile saline. Additional pockets of purulent discharge were removed. The plantar wound communicated to the bone, and the lateral incision was closed with deep and superficial interrupted sutures. There was also a gram of vancomycin powder placed inside the wound prior to closure. Xeroform, 4 x 4 gauze, Kerlix, and Fredi applied. The patient tolerated the procedure and anesthesia well. He was transferred back to his room for additional antibiotic therapy. [id number] Job ID: [id number] Doc ID: [id number] Cedrick Sutton DPM
[2021-10-16] MEDS ORDERED: LABETALOL 5 MG/ML ML IV PRN (16:48)
--- NOTE | 2021-10-16 17:13 | Internal Med Progress Note ---
SUBJECTIVE Subjective Patient information: Note initiated : 10/16/21 at 5:02 pm Service Date, if different from initiated Date: [] Patient: Yaakov Jacobson 81 y/o M admitted on 10/15/21 for Shortness of breath. Chief Complaint: [] Principal diagnosis: Osteomyelitis Interval history: Mr. Jacobson is a 81 year old male with a history of hypertension, type 2 diabetes mellitus, COPD with chronic hypoxia, peripheral vascular disease presented to an outside hospital for confusion. Per available documents and report from the emergency department provider, the patient appeared to be septic at that time. The patient was given a dose of ceftriaxone and referred to [facility] emergency department. Upon arrival, the patient appeared to be septic, he also had an increased oxygen requirement, arterial blood gas was consistent with respiratory acidosis. The patient was started on broad-spectrum antibiotics, IV fluids, BiPAP and oxygen supplementation. The cause of sepsis is felt to be a left foot wound that was draining purulent fluid. Chest x-ray showed bilateral pulmonary infiltrates. CODE STATUS was discussed in the emergency department, the patient wishes to be DNR/DNI. Hospital medicine was asked to admit the patient for further management. In the emergency department, the patient was unable to provide a history due to encephalopathy likely secondary to sepsis. He appeared to be breathing comfortably with BiPAP, vitals had improved after IV fluid and broad-spectrum antibiotics. 10/16 CT of the left foot was consistent with osteomyelitis of the distal left fifth metatarsal, podiatry consulted and performed a partial amputation of the left fifth metatarsal. On broad spectrum antibiotics. Awaiting blood and bone culture results. Sepsis physiology resolving however continues on BiPAP for respiratory failure. PANTHER was negative. Concern for dysphagia, speech consulted. Physical exam Head: Atraumatic, normal inspection. Eyes: normal appearance, no scleral icterus. Neck: full ROM Respiratory: Appears to be breathing comfortably on BiPAP, respiratory rate in the low to mid 20s. Cardiovascular: normal rate and rhythm, S1, S2. GI/Abdominal: Obesely distended, soft, nontender, no guarding. Extremities: full range of motion, nontender. Neurological: CN II-XII intact, intact motor, intact sensation. Psychiatric: normal mood, impaired cognition. Skin: Multiple open skin wounds on left lower extremity, wound on left foot draining purulent material. Constitutional Vitals: Vital Signs Temp Pulse Resp BP Pulse Ox 97.6 F 79 21 142/75 95 10/16/21 16:01 10/16/21 16:06 10/16/21 16:06 10/16/21 16:01 10/16/21 16:06 Period Temp Pulse Resp BP Sys/Wood Pulse Ox Last 24 Hr 97 F-97.9 F 71-120 12-39 96-164/53-124 75-100 Intake and Output 10/16/21 10/16/21 10/16/21 05:59 13:59 21:59 Intake Total 993 1250 Output Total 375 325 325 Balance 618 925 -325 Weight 123.695 kg Intake & Output: Intake & Output 10/16/21 10/16/21 10/16/21 05:59 13:59 21:59 Intake Total 993 1250 Output Total 375 325 325 Balance 618 925 -325 Weight 123.695 kg Intake: IV 993 1250 Sodium Chloride 0.9% 1,000 ml @ 993 1000 150 mls/hr IV .Q6H40M [facility] Rx#: [id number] Vancomycin 1,000 mg In Sodium 250 Chloride 0.9% 250 ml @ 250 mls/ hr IV Q12H [facility] Rx#:[id number] Output: Urine Catheter Amount 375 325 325 Other: Urine Appearance Clear Clear Clear Uretheral (Marshall) Clear Urine Color Bright Yellow Bright Yellow Dark Yellow Uretheral (Marshall) Dark Yellow Urine Odor Normal Normal Normal OBJ DATA Labs CBC & Chem 7: 10/16/21 05:38 10/16/21 05:37 Labs: Abnormal Lab Results 10/16/21 10/16/21 10/16/21 05:38 05:37 05:37 WBC 36.6 H* RBC 3.80 L Hgb 10.7 L Hct 36.7 L MCHC 29.2 L RDW 14.6 H MPV 11.1 H Band Neutrophils % 25 H RBC Morphology Abnormal A Anisocytosis Few A ABG Methemoglobin VBG pH VBG pCO2 VBG HCO3 VBG Total CO2 Carboxyhemoglobin Total Hemoglobin BUN 25 H Creatinine 1.4 H POC Creatinine Glucose 189 H Hemoglobin A1c 6.6 H Calcium 8.2 L Phosphorus 5.0 H Lactate Dehydrogenase 243 H C-Reactive Protein Globulin Albumin/Globulin Ratio 0.9 L Urine Glucose (UA) Urine Occult Blood Urine Mucus 10/15/21 10/15/21 10/15/21 23:18 23:18 18:41 WBC RBC Hgb Hct MCHC RDW MPV Band Neutrophils % RBC Morphology Anisocytosis ABG Methemoglobin 0.3 L VBG pH 7.24 L VBG pCO2 70.8 H* VBG HCO3 29.5 H VBG Total CO2 31.7 H Carboxyhemoglobin 3.7 H Total Hemoglobin 10.9 L BUN 28 H Creatinine 1.6 H POC Creatinine Glucose 218 H Hemoglobin A1c Calcium 8.0 L Phosphorus Lactate Dehydrogenase C-Reactive Protein Globulin 3.9 H Albumin/Globulin Ratio 0.8 L Urine Glucose (UA) 500 mg/dl A Urine Occult Blood Moderate A Urine Mucus Few A 10/15/21 10/15/21 10/15/21 17:57 16:32 16:32 WBC RBC Hgb Hct MCHC RDW MPV Band Neutrophils % RBC Morphology Anisocytosis ABG Methemoglobin VBG pH VBG pCO2 VBG HCO3 VBG Total CO2 Carboxyhemoglobin Total Hemoglobin BUN 29 H Creatinine 1.5 H POC Creatinine 1.7 H Glucose 191 H Hemoglobin A1c Calcium Phosphorus Lactate Dehydrogenase C-Reactive Protein 5.20 H Globulin Albumin/Globulin Ratio Urine Glucose (UA) Urine Occult Blood Urine Mucus Meds: Medications Acetaminophen (Acetaminophen 325 Mg Tablet) 650 mg PO Q6HP PRN; Protocol PRN Reason: Per Pain Protocol/Fever > 101 Albuterol Sulfate (Albuterol Sulfate 2.5 Mg/3 Ml Nebulizer) 2.5 mg NEB Q2HP PRN PRN Reason: Shortness Of Breath Albuterol/Ipratropium (Ipratropium/Albuterol 3 Ml Ampul.Neb) 3 ml NEB Q6HRT [facility] Last Admin: 10/16/21 13:19 Dose: 3 ml Documented by: Aspirin (Aspirin 81 Mg Tab.Chew) 81 mg PO QDAY [facility] Last Admin: 10/16/21 10:52 Dose: Not Given Documented by: Cefepime HCl (Cefepime 2 Gm Vial) 2 gm IV Q8H [facility]; Protocol Last Admin: 10/16/21 15:47 Dose: 2 gm Documented by: Dextrose (Dextrose 50% 50 Ml Vial) 0 ml IV UD PRN PRN Reason: Hypoglycemia Diagnostic Test (Pha) (Accu-Chek 1 Each Strip) 1 each FS ACHS [facility] Last Admin: 10/16/21 16:40 Dose: 1 each Documented by: Docusate Sodium (Docusate Sodium 100 Mg Capsule) 100 mg PO BID [facility] Last Admin: 10/16/21 08:03 Dose: Not Given Documented by: Donepezil HCl (Donepezil 10 Mg Tablet) 10 mg PO QDAY [facility] Last Admin: 10/16/21 08:21 Dose: 10 mg Documented by: Famotidine (Famotidine 20 Mg Tablet) 20 mg PO DAILY [facility] Last Admin: 10/16/21 08:22 Dose: 20 mg Documented by: Gabapentin (Gabapentin 300 Mg Capsule) 300 mg PO BID [facility] Last Admin: 10/16/21 08:22 Dose: 300 mg Documented by: Glucose (Dextrose 31 Gm Oral.Susp) 15 gm PO PRN PRN PRN Reason: Hypoglycemia Heparin Sodium (Porcine) (Heparin 5,000 Unit/Ml Vial) 5,000 unit SQ Q12 [facility] Last Admin: 10/16/21 10:52 Dose: Not Given Documented by: Vancomycin HCl 1,000 mg/ (Sodium Chloride) 250 mls @ 250 mls/hr IV Q12H [facility] Last Infusion: 10/16/21 12:39 Dose: Infused Documented by: Metronidazole (Flagyl) 500 mg in 100 mls @ 100 mls/hr IV Q8H [facility]; Protocol Sodium Chloride (Sodium Chloride 0.9%) 1,000 mls @ 50 mls/hr IV .Q20H [facility] Insulin Glargine (Insulin Glargine, Human 1 Unit/0.01 Ml) 10 unit SQ [facility] Last Admin: 10/16/21 00:16 Dose: 10 units Documented by: Insulin Human Lispro (Insulin Lispro 1 Unit/0.01 Ml Unit) 0 unit SQ [facility]; Protocol Last Admin: 10/16/21 13:09 Dose: Not Given Documented by: Labetalol HCl (Labetalol 5 Mg/Ml Ml) 10 mg IV Q10M PRN PRN Reason: blood pressure Lactulose (Lactulose 20 Gm/30 Ml Oral.Aura) 10 gm PO DAILYP PRN PRN Reason: Constipation Metoprolol Succinate (Metoprolol Succinate 25 Mg Tab.Xl.24h) 25 mg PO [facility] Ondansetron HCl (Ondansetron 4 Mg/2 Ml Vial) 4 mg IV Q4HP PRN; Protocol PRN Reason: Nausea And Vomiting Last Admin: 10/16/21 04:22 Dose: 4 mg Documented by: Senna (Sennosides 1 Tablet) 2 tab PO HSP PRN PRN Reason: Constipation Sertraline HCl (Sertraline 50 Mg Tablet) 50 mg PO QDAY [facility] Last Admin: 10/16/21 08:22 Dose: 50 mg Documented by: Sodium Chloride (0.9 % Sodium Chloride 10 Ml Syringe) 10 ml IV Q8 [facility] Last Admin: 10/16/21 15:48 Dose: 10 ml Documented by: Vancomycin HCl (Vancomycin Per Pharmacy) 1 order IV UD [facility]; Protocol ABG Interpretation ABG results: 10/15/21 23:18 ABG Methemoglobin 0.3 L VBG pH 7.24 L VBG pCO2 70.8 H* VBG pO2 38.0 VBG HCO3 29.5 H VBG Total CO2 31.7 H VBG O2 Saturation 60.4 VBG Base Excess 1 A/P Narrative A/P Narrative: Assessment: 81 year old male with a history of hypertension, type 2 DM, CKD, HF pEF, COPD with chronic hypoxia, depression, obesity admitted for sepsis likely secondary to a diabetic foot wound complicated by acute hypoxic respiratory failure and hypercapnic respiratory failure. The patient has bilateral pulmonary infiltrates of unknown cause. The patient is currently hemodynamically stable, lactic acid was normal. 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 -Decrease IV fluid to 50 mL/hr, monitor urine output and volume status. -Oxygen supplementation as needed. -BiPAP for now. -Follow all cultures. -Lantus and SSI-med. -Duoneb Q6 hrs and albuterol prn. -Hold home Metformin, Dapagliflozin Chlorthalidone, Losartan, Spironolactone, Torsemide. -Continue Aspirin, Toprol, Aspirin, Gabapentin. -Monitor healing, patient has peripheral arterial disease however likely adequ ate blood supply to foot. -Continue marshall catheter for accurate urine output. -Podiatry following. -PT consult. -Speech consult. -NPO for now due to aspiration risk -DVT ppx: heparin SQ -Code status: DNR/DNI Time Spent With Patient Time: Total time spent is greater than 50% in coordination of care (as documented) at patient's floor/unit and/or counseling patient:
[2021-10-16] MEDS ORDERED: METOPROLOL SUCCINATE 25 MG TAB.XL.24H PO SCH (21:00)
[2021-10-16] MEDS: metroNIDAZOLE 500 MG/100 ML BAG IV SCH (22:11)
[2021-10-17] MEDS: IPRATROPIUM/ALBUTEROL 3 ML AMPUL.NEB NEB SCH ×4 (00:12→18:21)
[2021-10-17] MEDS ORDERED: ACETAMINOPHEN 1,000 MG/100 ML BAG IV PRN (02:19)
[2021-10-17] MEDS ORDERED: DEXMEDETOMIDINE 100 ML IV ONE (02:29)
[2021-10-17] MEDS: DEXMEDETOMIDINE 400 MCG in PREMIX 1 BAG IV SCH ×4 (02:30→19:24)
[2021-10-17] MEDS ORDERED: ACETAMINOPHEN 1,000 MG/100 ML BAG IV ONE (02:31)
[2021-10-17] MEDS: 0.9 % SODIUM CHLORIDE 1,000 ML IV SCH ×2 (03:56→18:33)
[2021-10-17] MEDS: metroNIDAZOLE 500 MG/100 ML BAG IV SCH ×3 (05:55→23:05)
[2021-10-17] MEDS: CEFEPIME 2 GM VIAL IV SCH ×3 (05:55→23:05)
[2021-10-17] MEDS: 0.9 % SODIUM CHLORIDE 10 ML SYRINGE IV SCH ×3 (05:55→21:20)
[2021-10-17 06:59] LABS: Hematocrit 34.3 % (40.1-51.0); Hemoglobin 10.2 g/dL (13.7-17.5); Mean Cell Volume 95.5 fL (80.0-100.0); Mean Corpuscular HGB Conc 29.7 g/dL (31.0-36.0); Mean Platelet Volume 11.1 fL (7.4-10.4); Platelet Count 188 K/mcL (140-440); RBC 3.59 M/mcL (4.63-6.08); Red Cell Distribution Width 14.6 % (11.5-14.5); WBC 18.4 K/mcL (4.5-11.0)
[2021-10-17] MEDS: INSULIN LISPRO 1 UNIT/0.01 ML UNIT SQ SCH ×4 (07:29→21:19)
[2021-10-17 07:56] LABS: ALT/SGPT 16 U/L (<40); AST/SGOT 18 U/L (<40); Albumin 3.2 gm/dL (3.2-5.2); Albumin/Globulin Ratio 0.9 (1.0-2.3); Alkaline Phosphatase 46 U/L (39-117); Bilirubin,Direct < 0.2 mg/dL (0-0.3); Bilirubin,Total < 0.2 mg/dL (0.1-1.0); Blood Urea Nitrogen 38 mg/dL (8-23); Calcium 8.7 mg/dL (8.6-10.4); Carbon Dioxide 24 mmol/L (22-30); Chloride 108 mmol/L (96-108); Globulin 3.6 gm/dL (2.2-3.7); Glomerular Filtration Rate 40; Glucose 203 mg/dL (70-105); Lactate Dehydrogenase 167 U/L (135-225); Phosphorous 3.7 mg/dL (2.5-4.5); Triglycerides 116 mg/dL (<150); Uric Acid 8.1 mg/dL (2.5-8.0)
[2021-10-17 08:36] LABS: Band Neutrophils % 3 % (0-10); Lymphocytes % 3 % (15-49); Monocytes % (Manual) 3 % (1-12); Platelet Estimate NORMAL (Normal); RBC Morphology NORMAL (Normal); Segmented Neutrophils % 91 % (38-78)
[2021-10-17] MEDS: HEPARIN 5,000 UNIT/ML VIAL SQ SCH ×2 (09:02→21:20)
[2021-10-17] MEDS: VANCOMYCIN 1,000 MG in 0.9 % SODIUM CHLORIDE 250 ML IV SCH ×2 (09:03→21:18)
[2021-10-17] MEDS: ACETAMINOPHEN 1,000 MG/100 ML BAG IV SCH ×2 (09:04→17:42)
[2021-10-17] MEDS: DONEPEZIL 10 MG TABLET PO SCH (11:36)
[2021-10-17] MEDS: SERTRALINE 50 MG TABLET PO SCH (11:38)
[2021-10-17] MEDS: ASPIRIN 81 MG TAB.CHEW PO SCH (11:38)
[2021-10-17] MEDS: DOCUSATE SODIUM 100 MG CAPSULE PO SCH ×2 (11:38→21:21)
[2021-10-17] MEDS: GABAPENTIN 300 MG CAPSULE PO SCH ×2 (11:38→21:21)
[2021-10-17 11:39] LABS: ABG Methemoglobin 0.3 % (0.4-1.5); Total Hemoglobin 10.4 gm/Dl (13.5-16.5); VBG Base Excess 0 (-2-3); VBG HCO3 26.9 mmol/L (24.0-28.0); VBG Oxygen Saturation 92.9 % (40.0-70.0); VBG PO2 110.2 mmHg (25.0-40.0); VBG Total CO2 28.6 mmol/L (25.0-29.0)
[2021-10-17] MEDS: FAMOTIDINE 20 MG TABLET PO SCH (11:42)
--- NOTE | 2021-10-17 14:17 | Internal Med Progress Note ---
SUBJECTIVE Subjective Patient information: Note initiated : 10/17/21 at 2:16 pm Service Date, if different from initiated Date: [] Patient: Yaakov Jacobson 81 y/o M admitted on 10/15/21 for Shortness of breath. Chief Complaint: [] Principal diagnosis: Osteomyelitis Interval history: Mr. Jacobson is a 81 year old male with a history of hypertension, type 2 diabetes mellitus, COPD with chronic hypoxia, peripheral vascular disease presented to an outside hospital for confusion. Per available documents and report from the emergency department provider, the patient appeared to be septic at that time. The patient was given a dose of ceftriaxone and referred to [facility] emergency department. Upon arrival, the patient appeared to be septic, he also had an increased oxygen requirement, arterial blood gas was consistent with respiratory acidosis. The patient was started on broad-spectrum antibiotics, IV fluids, BiPAP and oxygen supplementation. The cause of sepsis is felt to be a left foot wound that was draining purulent fluid. Chest x-ray showed bilateral pulmonary infiltrates. CODE STATUS was discussed in the emergency department, the patient wishes to be DNR/DNI. Hospital medicine was asked to admit the patient for further management. In the emergency department, the patient was unable to provide a history due to encephalopathy likely secondary to sepsis. He appeared to be breathing comfortably with BiPAP, vitals had improved after IV fluid and broad-spectrum antibiotics. 10/16 CT of the left foot was consistent with osteomyelitis of the distal left fifth metatarsal, podiatry consulted and performed a partial amputation of the left fifth metatarsal. On broad spectrum antibiotics with Vancomycin, Cefepime, Flagy.. Awaiting blood and bone culture results. Sepsis physiology resolving however continues on BiPAP for respiratory failure. PANTHER was negative. Concern for dysphagia, speech consulted. 10/17 Overnight started precedex for agitation. Otherwise Improving slowly, VBG shows improvement in CO2 retention and respiratory acidosis. WBC trending down, renal function about the same with creatinine of 1.6. The patient is able to engage in short conversations, does not feel short of breath. Lantus increased to 15 units HS for morning hyperglycemia, SSI continued at medium dose. Continues NPO pending speech therapy evaluation. Wound swab culture growing polymicrobial St aph, Strep, and Peptococcus. Surgical bone cultures pending. Physical exam Head: Atraumatic, normal inspection. Eyes: normal appearance, no scleral icterus. Neck: full ROM Respiratory: Appears to be breathing comfortably on BiPAP, respiratory rate in the low to mid 20s. Cardiovascular: bradycardia, S1, S2. GI/Abdominal: Obesely distended, soft, nontender, no guarding. Extremities: full range of motion, nontender. Neurological: CN II-XII intact, intact motor, intact sensation. Psychiatric: normal mood, impaired cognition. Skin: Left foot covered in clean bandages. Constitutional Vitals: Vital Signs Temp Pulse Resp BP Pulse Ox 96.9 F L 50 L 21 134/75 98 10/17/21 12:31 10/17/21 13:00 10/17/21 13:00 10/17/21 12:31 10/17/21 13:00 Period Temp Pulse Resp BP Sys/Wood Pulse Ox Last 24 Hr 96.9 F-98.1 F 49-79 7-26 81-151/29-120 90-100 Intake and Output 10/17/21 10/17/21 10/17/21 05:59 13:59 21:59 Intake Total 1012 510 Output Total 700 125 Balance 312 385 Intake & Output: Intake & Output 10/17/21 10/17/21 10/17/21 05:59 13:59 21:59 Intake Total 1012 510 Output Total 700 125 Balance 312 385 Intake: IV 1012 510 Sodium Chloride 0.9% 1,000 ml @ 526 50 mls/hr IV .Q20H [facility] Rx#: [id number] Precedex 400 Mcg/100 ml 36 60 Dextrose 400 Mcg In Premix 1 Bag @ 0.2 MCG/KG/HR 6.221 mls/ hr IV .Q16H5M [facility] Rx#:[id number] Vancomycin 1,000 mg In Sodium 250 250 Chloride 0.9% 250 ml @ 250 mls/ hr IV Q12H [facility] Rx#:[id number] Output: Urine Catheter Amount 700 125 Other: Urine Appearance Clear Clear Urine Color Bright Yellow Dark Yellow OBJ DATA Labs CBC & Chem 7: 10/17/21 05:45 10/17/21 05:46 Labs: Abnormal Lab Results 10/17/21 10/17/21 10/17/21 11:12 05:46 05:45 WBC 18.4 H RBC 3.59 L Hgb 10.2 L Hct 34.3 L MCHC 29.7 L RDW 14.6 H MPV 11.1 H Seg Neutrophils % 91 H Band Neutrophils % Lymphocytes % 3 L RBC Morphology Anisocytosis ABG Methemoglobin 0.3 L VBG pH 7.30 L VBG pCO2 56.0 H VBG pO2 110.2 H VBG HCO3 VBG Total CO2 VBG O2 Saturation 92.9 H Carboxyhemoglobin 5.1 H Total Hemoglobin 10.4 L BUN 38 H Creatinine 1.6 H POC Creatinine Glucose 203 H Hemoglobin A1c Uric Acid 8.1 H Calcium Phosphorus Magnesium 2.6 H Lactate Dehydrogenase C-Reactive Protein Globulin Albumin/Globulin Ratio 0.9 L Urine Glucose (UA) Urine Occult Blood Urine Mucus 10/16/21 10/16/21 10/16/21 05:38 05:37 05:37 WBC 36.6 H* RBC 3.80 L Hgb 10.7 L Hct 36.7 L MCHC 29.2 L RDW 14.6 H MPV 11.1 H Seg Neutrophils % Band Neutrophils % 25 H Lymphocytes % RBC Morphology Abnormal A Anisocytosis Few A ABG Methemoglobin VBG pH VBG pCO2 VBG pO2 VBG HCO3 VBG Total CO2 VBG O2 Saturation Carboxyhemoglobin Total Hemoglobin BUN 25 H Creatinine 1.4 H POC Creatinine Glucose 189 H Hemoglobin A1c 6.6 H Uric Acid Calcium 8.2 L Phosphorus 5.0 H Magnesium Lactate Dehydrogenase 243 H C-Reactive Protein Globulin Albumin/Globulin Ratio 0.9 L Urine Glucose (UA) Urine Occult Blood Urine Mucus 10/15/21 10/15/21 10/15/21 23:18 23:18 18:41 WBC RBC Hgb Hct MCHC RDW MPV Seg Neutrophils % Band Neutrophils % Lymphocytes % RBC Morphology Anisocytosis ABG Methemoglobin 0.3 L VBG pH 7.24 L VBG pCO2 70.8 H* VBG pO2 VBG HCO3 29.5 H VBG Total CO2 31.7 H VBG O2 Saturation Carboxyhemoglobin 3.7 H Total Hemoglobin 10.9 L BUN 28 H Creatinine 1.6 H POC Creatinine Glucose 218 H Hemoglobin A1c Uric Acid Calcium 8.0 L Phosphorus Magnesium Lactate Dehydrogenase C-Reactive Protein Globulin 3.9 H Albumin/Globulin Ratio 0.8 L Urine Glucose (UA) 500 mg/dl A Urine Occult Blood Moderate A Urine Mucus Few A 10/15/21 10/15/21 10/15/21 17:57 16:32 16:32 WBC RBC Hgb Hct MCHC RDW MPV Seg Neutrophils % Band Neutrophils % Lymphocytes % RBC Morphology Anisocytosis ABG Methemoglobin VBG pH VBG pCO2 VBG pO2 VBG HCO3 VBG Total CO2 VBG O2 Saturation Carboxyhemoglobin Total Hemoglobin BUN 29 H Creatinine 1.5 H POC Creatinine 1.7 H Glucose 191 H Hemoglobin A1c Uric Acid Calcium Phosphorus Magnesium Lactate Dehydrogenase C-Reactive Protein 5.20 H Globulin Albumin/Globulin Ratio Urine Glucose (UA) Urine Occult Blood Urine Mucus Meds: Medications Albuterol Sulfate (Albuterol Sulfate 2.5 Mg/3 Ml Nebulizer) 2.5 mg NEB Q2HP PRN PRN Reason: Shortness Of Breath Albuterol/Ipratropium (Ipratropium/Albuterol 3 Ml Ampul.Neb) 3 ml NEB Q6HRT [facility] Last Admin: 10/17/21 12:58 Dose: 3 ml Documented by: Aspirin (Aspirin 81 Mg Tab.Chew) 81 mg PO QDAY [facility] Last Admin: 10/17/21 11:38 Dose: Not Given Documented by: Cefepime HCl (Cefepime 2 Gm Vial) 2 gm IV Q8H [facility]; Protocol Last Admin: 10/17/21 05:55 Dose: 2 gm Documented by: Chlorhexidine Gluconate (Chlorhexidine Gluconate 1 Ml Oral.Aura) 15 ml [place]TH BID [facility] Dextrose (Dextrose 50% 50 Ml Vial) 0 ml IV UD PRN PRN Reason: Hypoglycemia Diagnostic Test (Pha) (Accu-Chek 1 Each Strip) 1 each FS ACHS [facility] Last Admin: 10/17/21 11:49 Dose: 1 each Documented by: Docusate Sodium (Docusate Sodium 100 Mg Capsule) 100 mg PO BID [facility] Last Admin: 10/17/21 11:38 Dose: Not Given Documented by: Donepezil HCl (Donepezil 10 Mg Tablet) 10 mg PO QDAY [facility] Last Admin: 10/17/21 11:36 Dose: Not Given Documented by: Famotidine (Famotidine/Pf 20 Mg/2 Ml Vial) 20 mg IV HS [facility] Gabapentin (Gabapentin 300 Mg Capsule) 300 mg PO BID [facility] Last Admin: 10/17/21 11:38 Dose: Not Given Documented by: Glucose (Dextrose 31 Gm Oral.Susp) 15 gm PO PRN PRN PRN Reason: Hypoglycemia Heparin Sodium (Porcine) (Heparin 5,000 Unit/Ml Vial) 5,000 unit SQ Q12 [facility] Last Admin: 10/17/21 09:02 Dose: 5,000 unit Documented by: Vancomycin HCl 1,000 mg/ (Sodium Chloride) 250 mls @ 250 mls/hr IV Q12H [facility] Last Infusion: 10/17/21 10:03 Dose: Infused Documented by: Metronidazole (Flagyl) 500 mg in 100 mls @ 100 mls/hr IV Q8H [facility]; Protocol Last Infusion: 10/17/21 06:55 Dose: Infused Documented by: Sodium Chloride (Sodium Chloride 0.9%) 1,000 mls @ 50 mls/hr IV .Q20H [facility] Last Admin: 10/17/21 03:56 Dose: 50 mls/hr Documented by: Dexmedetomidine HCl 400 mcg/ (Premix) 100 mls @ 6.221 mls/hr IV .Q16H5M [facility]; Protocol Last Admin: 10/17/21 08:47 Dose: 0.6 mcg/kg/hr, 18.663 mls/hr Documented by: Acetaminophen (Ofirmev) 1,000 mg in 100 mls @ 200 mls/hr IV Q8H [facility]; Protocol Last Infusion: 10/17/21 09:34 Dose: Infused Documented by: Insulin Glargine (Insulin Glargine, Human 1 Unit/0.01 Ml) 15 unit SQ [facility] Insulin Human Lispro (Insulin Lispro 1 Unit/0.01 Ml Unit) 0 unit SQ ACHS [facility]; Protocol Last Admin: 10/17/21 11:49 Dose: 4 units Documented by: Labetalol HCl (Labetalol 5 Mg/Ml Ml) 10 mg IV Q10M PRN PRN Reason: blood pressure Lactulose (Lactulose 20 Gm/30 Ml Oral.Aura) 10 gm PO DAILYP PRN PRN Reason: Constipation Olanzapine (Olanzapine 10 Mg Vial) 2 mg IM Q4HP PRN PRN Reason: Agitation Ondansetron HCl (Ondansetron 4 Mg/2 Ml Vial) 4 mg IV Q4HP PRN; Protocol PRN Reason: Nausea And Vomiting Last Admin: 10/16/21 04:22 Dose: 4 mg Documented by: Senna (Sennosides 1 Tablet) 2 tab PO HSP PRN PRN Reason: Constipation Sertraline HCl (Sertraline 50 Mg Tablet) 50 mg PO QDAY [facility] Last Admin: 10/17/21 11:38 Dose: Not Given Documented by: Sodium Chloride (0.9 % Sodium Chloride 10 Ml Syringe) 10 ml IV Q8 [facility] Last Admin: 10/17/21 05:55 Dose: Not Given Documented by: Vancomycin HCl (Vancomycin Per Pharmacy) 1 order IV UD [facility]; Protocol ABG Interpretation ABG results: 10/15/21 10/17/21 23:18 11:12 ABG Methemoglobin 0.3 L 0.3 L VBG pH 7.24 L 7.30 L VBG pCO2 70.8 H* 56.0 H VBG pO2 38.0 110.2 H VBG HCO3 29.5 H 26.9 VBG Total CO2 31.7 H 28.6 VBG O2 Saturation 60.4 92.9 H VBG Base Excess 1 0 A/P Narrative A/P Narrative: Assessment: 81 year old male with a history of hypertension, type 2 DM, CKD, HFpEF, COPD with chronic hypoxia, depression, obesity admitted for sepsis likely secondary to a diabetic foot wound complicated by acute hypoxic respiratory failure and hypercapnic respiratory failure. The patient has bilateral pulmonary infiltrates of unknown cause. The patient is currently hemodynamically stable, lactic acid was normal. #Resolving sepsis secondary to osteomyelitis of left fifth distal metatarsal #Left fifth distal metatarsal osteomyelitis s/p partial amputation 10/16/21 #Acute on chronic hypoxic respiratory failure #Hypercapnic respiratory failure #Bilateral pulmonary infiltrates or uncertain etiology -Pneumonia vs aspiration vs ARDS secondary to sepsis -MAUREEN and PANTHER negative for SARS-CoV-2 -MAUREEN negative for influenza A&B #Intermittent agitation #Possible cognitive impairment #Dysphagia #COPD w/ chronic hypoxia #Chronic kidney disease #Type 2 diabetes mellitus #Peripheral arterial disease #Essential hypertension #HFpEF #Depression #Obesity Plan -IV Vancomycin, Cefepime, and Metronidazole for now. -Continue IV fluid at 50 mL/hr, monitor urine output and volume status. -Oxygen supplementation as needed. -BiPAP, could probably transition to FNC soon. -Follow all cultures. -Precedex prn and Zyprexa IM prn for agitation. -Lantus and SSI-med. -Duoneb Q6 hrs and albuterol prn. -Hold home Metformin, Dapagliflozin Chlorthalidone, Toprol, Losartan, Spironolactone, Torsemide. -Continue Aspirin, Gabapentin. -Monitor healing, patient has peripheral arterial disease however likely adequate blood supply to foot. -Continue marshall catheter for accurate urine output. -Podiatry following. -PT consult. -Speech consult. -NPO for now due to aspiration risk -DVT ppx: heparin SQ -Code status: DNR/DNI -Disposition: probably SNF Time Spent With Patient Time: Total time spent is greater than 50% in coordination of care (as documented) at patient's floor/unit and/or counseling patient:
[2021-10-17] MEDS ORDERED: 0.9 % SODIUM CHLORIDE 500 ML IV ONE (18:17)
[2021-10-17] MEDS: INSULIN GLARGINE, HUMAN 1 UNIT/0.01 ML SQ SCH (21:19)
[2021-10-17] MEDS: FAMOTIDINE/PF 20 MG/2 ML VIAL IV SCH (21:19)
[2021-10-17] MEDS: CHLORHEXIDINE GLUCONATE 1 ML ORAL.SOL SWABMOUTH SCH (21:21)
[2021-10-17] MEDS: OLANZapine 10 MG VIAL IM PRN (23:15)
[2021-10-18] MEDS: ACETAMINOPHEN 1,000 MG/100 ML BAG IV SCH ×3 (01:44→17:47)
[2021-10-18] MEDS: IPRATROPIUM/ALBUTEROL 3 ML AMPUL.NEB NEB SCH ×4 (01:45→19:43)
[2021-10-18] MEDS: metroNIDAZOLE 500 MG/100 ML BAG IV SCH ×3 (06:19→21:01)
[2021-10-18] MEDS: 0.9 % SODIUM CHLORIDE 10 ML SYRINGE IV SCH ×4 (06:19→21:58)
[2021-10-18] MEDS: CEFEPIME 2 GM VIAL IV SCH ×2 (06:19→14:27)
[2021-10-18] MEDS: OLANZapine 10 MG VIAL IM PRN ×4 (07:22→23:03)
[2021-10-18 07:27] LABS: Hemoglobin 10.1 g/dL (13.7-17.5); Mean Cell Volume 95.8 fL (80.0-100.0); Mean Corpuscular HGB Conc 29.7 g/dL (31.0-36.0); Mean Platelet Volume 11.3 fL (7.4-10.4); Platelet Count 204 K/mcL (140-440); RBC 3.55 M/mcL (4.63-6.08); Red Cell Distribution Width 14.8 % (11.5-14.5); WBC 17.5 K/mcL (4.5-11.0)
[2021-10-18] MEDS: INSULIN LISPRO 1 UNIT/0.01 ML UNIT SQ SCH ×4 (07:32→21:05)
[2021-10-18 08:03] LABS: ALT/SGPT 15 U/L (<40); AST/SGOT 14 U/L (<40); Albumin 2.9 gm/dL (3.2-5.2); Albumin/Globulin Ratio 0.8 (1.0-2.3); Alkaline Phosphatase 51 U/L (39-117); Bilirubin,Direct < 0.2 mg/dL (0-0.3); Bilirubin,Total < 0.2 mg/dL (0.1-1.0); Blood Urea Nitrogen 56 mg/dL (8-23); Calcium 8.6 mg/dL (8.6-10.4); Carbon Dioxide 22 mmol/L (22-30); Chloride 112 mmol/L (96-108); Globulin 3.5 gm/dL (2.2-3.7); Glomerular Filtration Rate 33; Glucose 133 mg/dL (70-105); Lactate Dehydrogenase 194 U/L (135-225); Phosphorous 4.1 mg/dL (2.5-4.5); Triglycerides 168 mg/dL (<150); Uric Acid 9.7 mg/dL (2.5-8.0)
--- NOTE | 2021-10-18 08:22 | Orthopedic Progress Note ---
SUBJECTIVE Subjective Patient information: Note initiated : 10/18/21 at 8:19 am Service Date, if different from initiated Date: [] Patient: Yaakov Jacobson 81 y/o M admitted on 10/15/21 for Shortness of breath. Chief Complaint: [] Principal diagnosis: Osteomyelitis Interval history: Patient seen and evaluated bedside today. His dressing was taken down and changed. He is nonresponsive generally using the CPAP machine and is on a well padded bed. He is a legs elevated with a calf elevating pad as well. No other issues noted to breathing. Anterior cordova wound appears resolves from the previous abrasion related to swelling. Constitutional Vitals: Vital Signs Temp Pulse Resp BP Pulse Ox 97.3 F 47 L 20 133/63 100 10/18/21 08:01 10/18/21 08:16 10/18/21 08:16 10/18/21 08:16 10/18/21 08:16 Period Temp Pulse Resp BP Sys/Wood Pulse Ox Last 24 Hr 96.7 F-98.3 F 42-78 12-28 74-168/51-113 91-100 Intake and Output 10/17/21 10/18/21 10/18/21 21:59 05:59 13:59 Intake Total 836 510 100 Output Total 150 200 Balance 686 310 100 Weight 274 lb 4.8 oz Intake & Output: Intake & Output 10/17/21 10/18/21 10/18/21 21:59 05:59 13:59 Intake Total 836 510 100 Output Total 150 200 Balance 686 310 100 Weight 274 lb 4.8 oz Intake: IV 836 510 100 Sodium Chloride 0.9% 500 ml @ 500 Wide Open IV [facility] Rx#: [id number] Precedex 400 Mcg/100 ml 136 60 Dextrose 400 Mcg In Premix 1 Bag @ 0.2 MCG/KG/HR 6.221 mls/ hr IV .Q16H5M [facility] Rx#:[id number] Vancomycin 1,000 mg In Sodium 250 Chloride 0.9% 250 ml @ 250 mls/ hr IV Q12H [facility] Rx#:[id number] Output: Urine Catheter Amount 150 200 Other: Urine Appearance Clear Uretheral (Paulino) Clear Urine Color Dark Yellow Bright Yellow Uretheral (Paulino) Dark Yellow Urine Odor Uretheral (Paulino) Normal Skin Additional comments: Left foot incision & wound is closed and dry and intact. There is small amount of drainage on the proximal aspect of the incision. The plantar wound appears to have stable eschar formation beginning. Nonmalodorous and drainage is under control with compression and absorptive gauze. OBJ DATA Labs CBC & Chem 7: 10/18/21 05:19 10/18/21 05:19 Labs: Abnormal Lab Results 10/18/21 10/18/21 10/17/21 05:19 05:19 11:12 WBC 17.5 H RBC 3.55 L Hgb 10.1 L Hct 34.0 L MCHC 29.7 L RDW 14.8 H MPV 11.3 H Seg Neutrophils % Band Neutrophils % Lymphocytes % RBC Morphology Anisocytosis ABG Methemoglobin 0.3 L VBG pH 7.30 L VBG pCO2 56.0 H VBG pO2 110.2 H VBG HCO3 VBG Total CO2 VBG O2 Saturation 92.9 H Carboxyhemoglobin 5.1 H Total Hemoglobin 10.4 L Chloride 112 H BUN 56 H Creatinine 1.9 H POC Creatinine Glucose 133 H Hemoglobin A1c Uric Acid 9.7 H Calcium Phosphorus Magnesium 2.8 H Lactate Dehydrogenase C-Reactive Protein Albumin 2.9 L Globulin Albumin/Globulin Ratio 0.8 L Triglycerides 168 H Urine Glucose (UA) Urine Occult Blood Urine Mucus 10/17/21 10/17/21 10/16/21 05:46 05:45 05:38 WBC 18.4 H 36.6 H* RBC 3.59 L 3.80 L Hgb 10.2 L 10.7 L Hct 34.3 L 36.7 L MCHC 29.7 L 29.2 L RDW 14.6 H 14.6 H MPV 11.1 H 11.1 H Seg Neutrophils % 91 H Band Neutrophils % 25 H Lymphocytes % 3 L RBC Morphology Abnormal A Anisocytosis Few A ABG Methemoglobin VBG pH VBG pCO2 VBG pO2 VBG HCO3 VBG Total CO2 VBG O2 Saturation Carboxyhemoglobin Total Hemoglobin Chloride BUN 38 H Creatinine 1.6 H POC Creatinine Glucose 203 H Hemoglobin A1c Uric Acid 8.1 H Calcium Phosphorus Magnesium 2.6 H Lactate Dehydrogenase C-Reactive Protein Albumin Globulin Albumin/Globulin Ratio 0.9 L Triglycerides Urine Glucose (UA) Urine Occult Blood Urine Mucus 10/16/21 10/16/21 10/15/21 05:37 05:37 23:18 WBC RBC Hgb Hct MCHC RDW MPV Seg Neutrophils % Band Neutrophils % Lymphocytes % RBC Morphology Anisocytosis ABG Methemoglobin 0.3 L VBG pH 7.24 L VBG pCO2 70.8 H* VBG pO2 VBG HCO3 29.5 H VBG Total CO2 31.7 H VBG O2 Saturation Carboxyhemoglobin 3.7 H Total Hemoglobin 10.9 L Chloride BUN 25 H Creatinine 1.4 H POC Creatinine Glucose 189 H Hemoglobin A1c 6.6 H Uric Acid Calcium 8.2 L Phosphorus 5.0 H Magnesium Lactate Dehydrogenase 243 H C-Reactive Protein Albumin Globulin Albumin/Globulin Ratio 0.9 L Triglycerides Urine Glucose (UA) Urine Occult Blood Urine Mucus 10/15/21 10/15/21 10/15/21 23:18 18:41 17:57 WBC RBC Hgb Hct MCHC RDW MPV Seg Neutrophils % Band Neutrophils % Lymphocytes % RBC Morphology Anisocytosis ABG Methemoglobin VBG pH VBG pCO2 VBG pO2 VBG HCO3 VBG Total CO2 VBG O2 Saturation Carboxyhemoglobin Total Hemoglobin Chloride BUN 28 H Creatinine 1.6 H POC Creatinine 1.7 H Glucose 218 H Hemoglobin A1c Uric Acid Calcium 8.0 L Phosphorus Magnesium Lactate Dehydrogenase C-Reactive Protein Albumin Globulin 3.9 H Albumin/Globulin Ratio 0.8 L Triglycerides Urine Glucose (UA) 500 mg/dl A Urine Occult Blood Moderate A Urine Mucus Few A 10/15/21 10/15/21 16:32 16:32 WBC RBC Hgb Hct MCHC RDW MPV Seg Neutrophils % Band Neutrophils % Lymphocytes % RBC Morphology Anisocytosis ABG Methemoglobin VBG pH VBG pCO2 VBG pO2 VBG HCO3 VBG Total CO2 VBG O2 Saturation Carboxyhemoglobin Total Hemoglobin Chloride BUN 29 H Creatinine 1.5 H POC Creatinine Glucose 191 H Hemoglobin A1c Uric Acid Calcium Phosphorus Magnesium Lactate Dehydrogenase C-Reactive Protein 5.20 H Albumin Globulin Albumin/Globulin Ratio Triglycerides Urine Glucose (UA) Urine Occult Blood Urine Mucus Meds: Medications Albuterol Sulfate (Albuterol Sulfate 2.5 Mg/3 Ml Nebulizer) 2.5 mg NEB Q2HP PRN PRN Reason: Shortness Of Breath Albuterol/Ipratropium (Ipratropium/Albuterol 3 Ml Ampul.Neb) 3 ml NEB Q6HRT [facility] Last Admin: 10/18/21 08:11 Dose: 3 ml Documented by: Aspirin (Aspirin 81 Mg Tab.Chew) 81 mg PO QDAY [facility] Last Admin: 10/17/21 11:38 Dose: Not Given Documented by: Cefepime HCl (Cefepime 2 Gm Vial) 2 gm IV Q8H [facility]; Protocol Last Admin: 10/18/21 06:19 Dose: 2 gm Documented by: Chlorhexidine Gluconate (Chlorhexidine Gluconate 1 Ml Oral.Aura) 15 ml SWABMOUTH BID [facility] Last Admin: 10/17/21 21:21 Dose: 15 ml Documented by: Dextrose (Dextrose 50% 50 Ml Vial) 0 ml IV UD PRN PRN Reason: Hypoglycemia Diagnostic Test (Pha) (Accu-Chek 1 Each Strip) 1 each FS ACHS [facility] Last Admin: 10/18/21 07:32 Dose: 1 each Documented by: Docusate Sodium (Docusate Sodium 100 Mg Capsule) 100 mg PO BID [facility] Last Admin: 10/17/21 21:21 Dose: Not Given Documented by: Donepezil HCl (Donepezil 10 Mg Tablet) 10 mg PO QDAY [facility] Last Admin: 10/17/21 11:36 Dose: Not Given Documented by: Famotidine (Famotidine/Pf 20 Mg/2 Ml Vial) 20 mg IV HS [facility] Last Admin: 10/17/21 21:19 Dose: 20 mg Documented by: Gabapentin (Gabapentin 300 Mg Capsule) 300 mg PO BID [facility] Last Admin: 10/17/21 21:21 Dose: Not Given Documented by: Glucose (Dextrose 31 Gm Oral.Susp) 15 gm PO PRN PRN PRN Reason: Hypoglycemia Heparin Sodium (Porcine) (Heparin 5,000 Unit/Ml Vial) 5,000 unit SQ Q12 [facility] Last Admin: 10/17/21 21:20 Dose: 5,000 unit Documented by: Vancomycin HCl 1,000 mg/ (Sodium Chloride) 250 mls @ 250 mls/hr IV Q12H [facility] Last Infusion: 10/17/21 22:20 Dose: Infused Documented by: Metronidazole (Flagyl) 500 mg in 100 mls @ 100 mls/hr IV Q8H [facility]; Protocol Last Infusion: 10/18/21 07:19 Dose: Infused Documented by: Sodium Chloride (Sodium Chloride 0.9%) 1,000 mls @ 50 mls/hr IV .Q20H [facility] Last Admin: 10/17/21 18:33 Dose: Not Given Documented by: Dexmedetomidine HCl 400 mcg/ (Premix) 100 mls @ 6.221 mls/hr IV .Q16H5M [facility]; Protocol Last Titration: 10/18/21 03:30 Dose: 0 mcg/kg/hr, 0 mls/hr Documented by: Acetaminophen (Ofirmev) 1,000 mg in 100 mls @ 200 mls/hr IV Q8H [facility]; Protocol Last Infusion: 10/18/21 02:45 Dose: Infused Documented by: Insulin Glargine (Insulin Glargine, Human 1 Unit/0.01 Ml) 15 unit SQ HS [facility] Last Admin: 10/17/21 21:19 Dose: 15 unit Documented by: Insulin Human Lispro (Insulin Lispro 1 Unit/0.01 Ml Unit) 0 unit SQ ACHS [facility]; Protocol Last Admin: 10/18/21 07:32 Dose: Not Given Documented by: Labetalol HCl (Labetalol 5 Mg/Ml Ml) 10 mg IV Q10M PRN PRN Reason: blood pressure Lactulose (Lactulose 20 Gm/30 Ml Oral.Aura) 10 gm PO DAILYP PRN PRN Reason: Constipation Olanzapine (Olanzapine 10 Mg Vial) 2 mg IM Q4HP PRN PRN Reason: Agitation Last Admin: 10/18/21 07:22 Dose: 2 mg Documented by: Ondansetron HCl (Ondansetron 4 Mg/2 Ml Vial) 4 mg IV Q4HP PRN; Protocol PRN Reason: Nausea And Vomiting Last Admin: 10/16/21 04:22 Dose: 4 mg Documented by: Senna (Sennosides 1 Tablet) 2 tab PO HSP PRN PRN Reason: Constipation Sertraline HCl (Sertraline 50 Mg Tablet) 50 mg PO QDAY [facility] Last Admin: 10/17/21 11:38 Dose: Not Given Documented by: Sodium Chloride (0.9 % Sodium Chloride 10 Ml Syringe) 10 ml IV Q8 [facility] Last Admin: 10/18/21 06:19 Dose: 10 ml Documented by: Vancomycin HCl (Vancomycin Per Pharmacy) 1 order IV UD [facility]; Protocol ABG Interpretation ABG results: 10/15/21 10/17/21 23:18 11:12 ABG Methemoglobin 0.3 L 0.3 L VBG pH 7.24 L 7.30 L VBG pCO2 70.8 H* 56.0 H VBG pO2 38.0 110.2 H VBG HCO3 29.5 H 26.9 VBG Total CO2 31.7 H 28.6 VBG O2 Saturation 60.4 92.9 H VBG Base Excess 1 0 A/P Narrative A/P Narrative: Continue IV antibiotic therapy with culture driven sensitivities Continue dressing changes every other day with Xeroform 4 x 4 gauze Kerlix and Fredi wrap Patient to be nonweightbearing to LEFT lower extremity during time in hospital. Continue changing dressings every other day upon discharge from hospital and will follow up with podiatry within 1 week following that time. Time Spent With Patient Time: Total time spent is greater than 50% in coordination of care (as documented) at patient's floor/unit and/or counseling patient:
[2021-10-18] MEDS: HEPARIN 5,000 UNIT/ML VIAL SQ SCH ×2 (08:33→21:01)
[2021-10-18] MEDS: CHLORHEXIDINE GLUCONATE 1 ML ORAL.SOL SWABMOUTH SCH ×2 (08:33→21:07)
[2021-10-18] MEDS ORDERED: 0.9 % SODIUM CHLORIDE 500 ML IV ONE (08:56)
[2021-10-18] MEDS: DONEPEZIL 10 MG TABLET PO SCH (09:57)
[2021-10-18] MEDS: GABAPENTIN 300 MG CAPSULE PO SCH ×2 (09:57→21:07)
[2021-10-18] MEDS: ASPIRIN 81 MG TAB.CHEW PO SCH (09:57)
[2021-10-18] MEDS: SERTRALINE 50 MG TABLET PO SCH (09:57)
[2021-10-18] MEDS: DOCUSATE SODIUM 100 MG CAPSULE PO SCH ×2 (09:57→21:07)
[2021-10-18 11:10] LABS: Band Neutrophils % 5 % (0-10); Eosinophils % (Manual) 1 % (0-7); Lymphocytes % 3 % (15-49); Monocytes % (Manual) 5 % (1-12); Platelet Estimate NORMAL (Normal); RBC Morphology NORMAL (Normal); Segmented Neutrophils % 86 % (38-78)
--- NOTE | 2021-10-18 11:12 | Orthopedic Progress Note ---
SUBJECTIVE Subjective Patient information: Note initiated : 10/18/21 at 11:09 am Service Date, if different from initiated Date: [] Patient: Yaakov Jacobson 81 y/o M admitted on 10/15/21 for Shortness of breath. Chief Complaint: [foot infection] Principal diagnosis: Osteomyelitis Interval history: Patient's white cell count continues to trend downward to some extent. He remains generally nonresponsive difficult to arouse while interviewing patient at bedside this morning. He is being ventilated with his CPAP machine and is on a soft mattress set up with his calves supported in the area as well. Constitutional Vitals: Vital Signs Temp Pulse Resp BP Pulse Ox 97.3 F 56 L 29 H 154/78 94 10/18/21 08:01 10/18/21 10:31 10/18/21 10:31 10/18/21 10:31 10/18/21 10:31 Period Temp Pulse Resp BP Sys/Wood Pulse Ox Last 24 Hr 96.7 F-98.3 F 42-78 - 74-184/51-113 90-100 Intake and Output 10/17/21 10/18/21 10/18/21 21:59 05:59 13:59 Intake Total 381 128 9121 Output Total 150 200 150 Balance 686 310 950 Weight 274 lb 4.8 oz Intake & Output: Intake & Output 10/17/21 10/18/21 10/18/21 21:59 05:59 13:59 Intake Total 318 352 1822 Output Total 150 200 150 Balance 686 310 950 Weight 274 lb 4.8 oz Intake: IV 241 507 9411 Sodium Chloride 0.9% 1,000 ml @ 1000 50 mls/hr IV .Q20H [facility] Rx#: [id number] Sodium Chloride 0.9% 500 ml @ 500 Wide Open IV [facility] Rx#: [id number] Precedex 400 Mcg/100 ml 136 60 Dextrose 400 Mcg In Premix 1 Bag @ 0.2 MCG/KG/HR 6.221 mls/ hr IV .Q16H5M [facility] Rx#:[id number] Vancomycin 1,000 mg In Sodium 250 Chloride 0.9% 250 ml @ 250 mls/ hr IV Q12H [facility] Rx#:[id number] Output: Urine Catheter Amount 150 200 150 Other: Urine Appearance Clear Clear Uretheral (Paulino) Clear Urine Color Dark Yellow Bright Yellow Light Tanya Uretheral (Paulino) Dark Yellow Urine Odor Uretheral (Paulino) Normal OBJ DATA Labs CBC & Chem 7: 10/18/21 05:19 10/18/21 05:19 Labs: Abnormal Lab Results 10/18/21 10/18/21 10/17/21 05:19 05:19 11:12 WBC 17.5 H RBC 3.55 L Hgb 10.1 L Hct 34.0 L MCHC 29.7 L RDW 14.8 H MPV 11.3 H Seg Neutrophils % Band Neutrophils % Lymphocytes % RBC Morphology Anisocytosis ABG Methemoglobin 0.3 L VBG pH 7.30 L VBG pCO2 56.0 H VBG pO2 110.2 H VBG HCO3 VBG Total CO2 VBG O2 Saturation 92.9 H Carboxyhemoglobin 5.1 H Total Hemoglobin 10.4 L Chloride 112 H BUN 56 H Creatinine 1.9 H POC Creatinine Glucose 133 H Hemoglobin A1c Uric Acid 9.7 H Calcium Phosphorus Magnesium 2.8 H Lactate Dehydrogenase C-Reactive Protein Albumin 2.9 L Globulin Albumin/Globulin Ratio 0.8 L Triglycerides 168 H Urine Glucose (UA) Urine Occult Blood Urine Mucus 10/17/21 10/17/21 10/16/21 05:46 05:45 05:38 WBC 18.4 H 36.6 H* RBC 3.59 L 3.80 L Hgb 10.2 L 10.7 L Hct 34.3 L 36.7 L MCHC 29.7 L 29.2 L RDW 14.6 H 14.6 H MPV 11.1 H 11.1 H Seg Neutrophils % 91 H Band Neutrophils % 25 H Lymphocytes % 3 L RBC Morphology Abnormal A Anisocytosis Few A ABG Methemoglobin VBG pH VBG pCO2 VBG pO2 VBG HCO3 VBG Total CO2 VBG O2 Saturation Carboxyhemoglobin Total Hemoglobin Chloride BUN 38 H Creatinine 1.6 H POC Creatinine Glucose 203 H Hemoglobin A1c Uric Acid 8.1 H Calcium Phosphorus Magnesium 2.6 H Lactate Dehydrogenase C-Reactive Protein Albumin Globulin Albumin/Globulin Ratio 0.9 L Triglycerides Urine Glucose (UA) Urine Occult Blood Urine Mucus 10/16/21 10/16/21 10/15/21 05:37 05:37 23:18 WBC RBC Hgb Hct MCHC RDW MPV Seg Neutrophils % Band Neutrophils % Lymphocytes % RBC Morphology Anisocytosis ABG Methemoglobin 0.3 L VBG pH 7.24 L VBG pCO2 70.8 H* VBG pO2 VBG HCO3 29.5 H VBG Total CO2 31.7 H VBG O2 Saturation Carboxyhemoglobin 3.7 H Total Hemoglobin 10.9 L Chloride BUN 25 H Creatinine 1.4 H POC Creatinine Glucose 189 H Hemoglobin A1c 6.6 H Uric Acid Calcium 8.2 L Phosphorus 5.0 H Magnesium Lactate Dehydrogenase 243 H C-Reactive Protein Albumin Globulin Albumin/Globulin Ratio 0.9 L Triglycerides Urine Glucose (UA) Urine Occult Blood Urine Mucus 10/15/21 10/15/21 10/15/21 23:18 18:41 17:57 WBC RBC Hgb Hct MCHC RDW MPV Seg Neutrophils % Band Neutrophils % Lymphocytes % RBC Morphology Anisocytosis ABG Methemoglobin VBG pH VBG pCO2 VBG pO2 VBG HCO3 VBG Total CO2 VBG O2 Saturation Carboxyhemoglobin Total Hemoglobin Chloride BUN 28 H Creatinine 1.6 H POC Creatinine 1.7 H Glucose 218 H Hemoglobin A1c Uric Acid Calcium 8.0 L Phosphorus Magnesium Lactate Dehydrogenase C-Reactive Protein Albumin Globulin 3.9 H Albumin/Globulin Ratio 0.8 L Triglycerides Urine Glucose (UA) 500 mg/dl A Urine Occult Blood Moderate A Urine Mucus Few A 10/15/21 10/15/21 16:32 16:32 WBC RBC Hgb Hct MCHC RDW MPV Seg Neutrophils % Band Neutrophils % Lymphocytes % RBC Morphology Anisocytosis ABG Methemoglobin VBG pH VBG pCO2 VBG pO2 VBG HCO3 VBG Total CO2 VBG O2 Saturation Carboxyhemoglobin Total Hemoglobin Chloride BUN 29 H Creatinine 1.5 H POC Creatinine Glucose 191 H Hemoglobin A1c Uric Acid Calcium Phosphorus Magnesium Lactate Dehydrogenase C-Reactive Protein 5.20 H Albumin Globulin Albumin/Globulin Ratio Triglycerides Urine Glucose (UA) Urine Occult Blood Urine Mucus Meds: Medications Albuterol Sulfate (Albuterol Sulfate 2.5 Mg/3 Ml Nebulizer) 2.5 mg NEB Q2HP PRN PRN Reason: Shortness Of Breath Albuterol/Ipratropium (Ipratropium/Albuterol 3 Ml Ampul.Neb) 3 ml NEB Q6HRT [facility] Last Admin: 10/18/21 08:11 Dose: 3 ml Documented by: Aspirin (Aspirin 81 Mg Tab.Chew) 81 mg PO QDAY [facility] Last Admin: 10/18/21 09:57 Dose: 81 mg Documented by: Cefepime HCl (Cefepime 2 Gm Vial) 2 gm IV Q8H [facility]; Protocol Last Admin: 10/18/21 06:19 Dose: 2 gm Documented by: Chlorhexidine Gluconate (Chlorhexidine Gluconate 1 Ml Oral.Aura) 15 ml SWABMOUTH BID [facility] Last Admin: 10/18/21 08:33 Dose: 15 ml Documented by: Dextrose (Dextrose 50% 50 Ml Vial) 0 ml IV UD PRN PRN Reason: Hypoglycemia Diagnostic Test (Pha) (Accu-Chek 1 Each Strip) 1 each FS ACHS [facility] Last Admin: 10/18/21 07:32 Dose: 1 each Documented by: Docusate Sodium (Docusate Sodium 100 Mg Capsule) 100 mg PO BID [facility] Last Admin: 10/18/21 09:57 Dose: 100 mg Documented by: Donepezil HCl (Donepezil 10 Mg Tablet) 10 mg PO QDAY [facility] Last Admin: 10/18/21 09:57 Dose: 10 mg Documented by: Famotidine (Famotidine/Pf 20 Mg/2 Ml Vial) 20 mg IV HS [facility] Last Admin: 10/17/21 21:19 Dose: 20 mg Documented by: Gabapentin (Gabapentin 300 Mg Capsule) 300 mg PO BID [facility] Last Admin: 10/18/21 09:57 Dose: 300 mg Documented by: Glucose (Dextrose 31 Gm Oral.Susp) 15 gm PO PRN PRN PRN Reason: Hypoglycemia Heparin Sodium (Porcine) (Heparin 5,000 Unit/Ml Vial) 5,000 unit SQ Q12 [facility] Last Admin: 10/18/21 08:33 Dose: 5,000 unit Documented by: Metronidazole (Flagyl) 500 mg in 100 mls @ 100 mls/hr IV Q8H [facility]; Protocol Last Infusion: 10/18/21 07:19 Dose: Infused Documented by: Dexmedetomidine HCl 400 mcg/ (Premix) 100 mls @ 6.221 mls/hr IV .Q16H5M [facility]; Protocol Last Titration: 10/18/21 03:30 Dose: 0 mcg/kg/hr, 0 mls/hr Documented by: Acetaminophen (Ofirmev) 1,000 mg in 100 mls @ 200 mls/hr IV Q8H [facility]; Protocol Last Admin: 10/18/21 08:50 Dose: 200 mls/hr Documented by: Sodium Chloride (Sodium Chloride 0.9%) 1,000 mls @ 100 mls/hr IV .Q10H [facility] Insulin Glargine (Insulin Glargine, Human 1 Unit/0.01 Ml) 15 unit SQ HS [facility] Last Admin: 10/17/21 21:19 Dose: 15 unit Documented by: Insulin Human Lispro (Insulin Lispro 1 Unit/0.01 Ml Unit) 0 unit SQ [facility]; Protocol Last Admin: 10/18/21 07:32 Dose: Not Given Documented by: Labetalol HCl (Labetalol 5 Mg/Ml Ml) 10 mg IV Q10M PRN PRN Reason: blood pressure Lactulose (Lactulose 20 Gm/30 Ml Oral.Aura) 10 gm PO DAILYP PRN PRN Reason: Constipation Olanzapine (Olanzapine 10 Mg Vial) 2 mg IM Q4HP PRN PRN Reason: Agitation Last Admin: 10/18/21 07:22 Dose: 2 mg Documented by: Ondansetron HCl (Ondansetron 4 Mg/2 Ml Vial) 4 mg IV Q4HP PRN; Protocol PRN Reason: Nausea And Vomiting Last Admin: 10/16/21 04:22 Dose: 4 mg Documented by: Senna (Sennosides 1 Tablet) 2 tab PO HSP PRN PRN Reason: Constipation Sertraline HCl (Sertraline 50 Mg Tablet) 50 mg PO QDAY [facility] Last Admin: 10/18/21 09:57 Dose: 50 mg Documented by: Sodium Chloride (0.9 % Sodium Chloride 10 Ml Syringe) 10 ml IV Q8 [facility] Last Admin: 10/18/21 06:19 Dose: 10 ml Documented by: Vancomycin HCl (Vancomycin Per Pharmacy) 1 order IV UD [facility]; Protocol ABG Interpretation ABG results: 10/15/21 10/17/21 23:18 11:12 ABG Methemoglobin 0.3 L 0.3 L VBG pH 7.24 L 7.30 L VBG pCO2 70.8 H* 56.0 H VBG pO2 38.0 110.2 H VBG HCO3 29.5 H 26.9 VBG Total CO2 31.7 H 28.6 VBG O2 Saturation 60.4 92.9 H VBG Base Excess 1 0 A/P Narrative A/P Narrative: Dressings changed today with Xeroform four gauze Kerlix Fredi wrap. Continue IV Abx Dressings to be chagned every other day as above Time Spent With Patient Time: Total time spent is greater than 50% in coordination of care (as documented) at patient's floor/unit and/or counseling patient:
[2021-10-18] MEDS: 0.9 % SODIUM CHLORIDE 1,000 ML IV SCH ×3 (12:45→21:06)
[2021-10-18] MEDS ORDERED: OLANZapine 10 MG VIAL IM ONE (12:45)
[2021-10-18] MEDS ORDERED: 0.9 % SODIUM CHLORIDE 10 ML SYRINGE IV PRN (13:02)
[2021-10-18] MEDS: VANCOMYCIN 1,000 MG in 0.9 % SODIUM CHLORIDE 250 ML IV SCH (13:35)
[2021-10-18] MEDS: DEXMEDETOMIDINE 400 MCG in PREMIX 1 BAG IV SCH ×3 (13:36→23:01)
--- NOTE | 2021-10-18 16:27 | Internal Med Progress Note ---
SUBJECTIVE Subjective Patient information: Note initiated : 10/18/21 at 4:17 pm Service Date, if different from initiated Date: [] Patient: Yaakov Jacobson 81 y/o M admitted on 10/15/21 for Shortness of breath. Chief Complaint: [] Principal diagnosis: Osteomyelitis Interval history: Mr. Jacobson is a 81 year old male with a history of hypertension, type 2 diabetes mellitus, COPD with chronic hypoxia, peripheral vascular disease presented to an outside hospital for confusion. Per available documents and report from the emergency department provider, the patient appeared to be septic at that time. The patient was given a dose of ceftriaxone and referred to [facility] emergency department. Upon arrival, the patient appeared to be septic, he also had an increased oxygen requirement, arterial blood gas was consistent with respiratory acidosis. The patient was started on broad-spectrum antibiotics, IV fluids, BiPAP and oxygen supplementation. The cause of sepsis is felt to be a left foot wound that was draining purulent fluid. Chest x-ray showed bilateral pulmonary infiltrates. CODE STATUS was discussed in the emergency department, the patient wishes to be DNR/DNI. Hospital medicine was asked to admit the patient for further management. In the emergency department, the patient was unable to provide a history due to encephalopathy likely secondary to sepsis. He appeared to be breathing comfortably with BiPAP, vitals had improved after IV fluid and broad-spectrum antibiotics. 10/16 CT of the left foot was consistent with osteomyelitis of the distal left fifth metatarsal, podiatry consulted and performed a partial amputation of the left fifth metatarsal. On broad spectrum antibiotics with Vancomycin, Cefepime, Flagy.. Awaiting blood and bone culture results. Sepsis physiology resolving however continues on BiPAP for respiratory failure. PANTHER was negative. Concern for dysphagia, speech consulted. 10/17 Overnight started precedex for agitation. Otherwise Improving slowly, VBG shows improvement in CO2 retention and respiratory acidosis. WBC trending down, renal function about the same with creatinine of 1.6. The patient is able to engage in short conversations, does not feel short of breath. Lantus increased to 15 units HS for morning hyperglycemia, SSI continued at medium dose. Continues NPO pending speech therapy evaluation. Wound swab culture growing polymicrobial St aph, Strep, and Peptococcus. Surgical bone cultures pending. 10/18 Severe agitation today necessitating restraints, restarted Precedex and received Zyprexa IM prn. The patient is behaving violently toward staff, says he wants to leave the hospital but clearly not safe to do so. The patient does not have capacity at this time. Surgical cultures pending. Blood cultures showing no growth to date. PICC placement ordered for prolonged IV antibiotic treatment of foot infection complicated by osteomyelitis. Resumed IV fluid due to low urine output and increase in creatinine. Physical exam Head: Atraumatic, normal inspection. Eyes: normal appearance, no scleral icterus. Neck: full ROM Respiratory: no respiratory distress, respiratory rate in the low to mid 20s. Cardiovascular: regular rate and rhythm, S1, S2. GI/Abdominal: Obesely distended, soft, nontender, no guarding. Extremities: full range of motion, nontender. Neurological: CN II-XII intact, intact motor, intact sensation. Psychiatric: normal mood, severely agitated, impaired cognition. Skin: Left foot covered in clean bandages. Constitutional Vitals: Vital Signs Temp Pulse Resp BP Pulse Ox 97.9 F 83 30 H 163/70 95 10/18/21 12:01 10/18/21 15:35 10/18/21 15:35 10/18/21 13:32 10/18/21 15:35 Period Temp Pulse Resp BP Sys/Wood Pulse Ox Last 24 Hr 97 F-98.3 F 42-83 12-32 74-184/51-113 87-100 Intake and Output 10/18/21 10/18/21 10/18/21 05:59 13:59 21:59 Intake Total 510 1700 0 Output Total 200 425 Balance 310 1275 0 Intake & Output: Intake & Output 10/18/21 10/18/21 10/18/21 05:59 13:59 21:59 Intake Total 510 1700 0 Output Total 200 425 Balance 310 1275 0 Intake: IV 510 1700 0 Sodium Chloride 0.9% 1,000 ml @ 1000 50 mls/hr IV .Q20H [facility] Rx#: [id number] Sodium Chloride 0.9% 500 ml @ 500 Wide Open IV BOLUS ONE Rx#: [id number] Precedex 400 Mcg/100 ml 60 0 Dextrose 400 Mcg In Premix 1 Bag @ 0.2 MCG/KG/HR 6.221 mls/ hr IV .Q16H5M [facility] Rx#:[id number] Vancomycin 1,000 mg In Sodium 250 Chloride 0.9% 250 ml @ 250 mls/ hr IV Q12H [facility] Rx#:[id number] Output: Urine Catheter Amount 200 425 Other: Urine Appearance Cloudy Urine Color Bright Yellow Dark Yellow Urine Odor Normal OBJ DATA Labs CBC & Chem 7: 10/18/21 05:19 10/18/21 05:19 Labs: Abnormal Lab Results 10/18/21 10/18/21 10/17/21 05:19 05:19 11:12 WBC 17.5 H RBC 3.55 L Hgb 10.1 L Hct 34.0 L MCHC 29.7 L RDW 14.8 H MPV 11.3 H Seg Neutrophils % 86 H Band Neutrophils % Lymphocytes % 3 L RBC Morphology Anisocytosis ABG Methemoglobin 0.3 L VBG pH 7.30 L VBG pCO2 56.0 H VBG pO2 110.2 H VBG HCO3 VBG Total CO2 VBG O2 Saturation 92.9 H Carboxyhemoglobin 5.1 H Total Hemoglobin 10.4 L Chloride 112 H BUN 56 H Creatinine 1.9 H POC Creatinine Glucose 133 H Hemoglobin A1c Uric Acid 9.7 H Calcium Phosphorus Magnesium 2.8 H Lactate Dehydrogenase C-Reactive Protein Albumin 2.9 L Globulin Albumin/Globulin Ratio 0.8 L Triglycerides 168 H Urine Glucose (UA) Urine Occult Blood Urine Mucus 10/17/21 10/17/21 10/16/21 05:46 05:45 05:38 WBC 18.4 H 36.6 H* RBC 3.59 L 3.80 L Hgb 10.2 L 10.7 L Hct 34.3 L 36.7 L MCHC 29.7 L 29.2 L RDW 14.6 H 14.6 H MPV 11.1 H 11.1 H Seg Neutrophils % 91 H Band Neutrophils % 25 H Lymphocytes % 3 L RBC Morphology Abnormal A Anisocytosis Few A ABG Methemoglobin VBG pH VBG pCO2 VBG pO2 VBG HCO3 VBG Total CO2 VBG O2 Saturation Carboxyhemoglobin Total Hemoglobin Chloride BUN 38 H Creatinine 1.6 H POC Creatinine Glucose 203 H Hemoglobin A1c Uric Acid 8.1 H Calcium Phosphorus Magnesium 2.6 H Lactate Dehydrogenase C-Reactive Protein Albumin Globulin Albumin/Globulin Ratio 0.9 L Triglycerides Urine Glucose (UA) Urine Occult Blood Urine Mucus 10/16/21 10/16/21 10/15/21 05:37 05:37 23:18 WBC RBC Hgb Hct MCHC RDW MPV Seg Neutrophils % Band Neutrophils % Lymphocytes % RBC Morphology Anisocytosis ABG Methemoglobin 0.3 L VBG pH 7.24 L VBG pCO2 70.8 H* VBG pO2 VBG HCO3 29.5 H VBG Total CO2 31.7 H VBG O2 Saturation Carboxyhemoglobin 3.7 H Total Hemoglobin 10.9 L Chloride BUN 25 H Creatinine 1.4 H POC Creatinine Glucose 189 H Hemoglobin A1c 6.6 H Uric Acid Calcium 8.2 L Phosphorus 5.0 H Magnesium Lactate Dehydrogenase 243 H C-Reactive Protein Albumin Globulin Albumin/Globulin Ratio 0.9 L Triglycerides Urine Glucose (UA) Urine Occult Blood Urine Mucus 10/15/21 10/15/21 10/15/21 23:18 18:41 17:57 WBC RBC Hgb Hct MCHC RDW MPV Seg Neutrophils % Band Neutrophils % Lymphocytes % RBC Morphology Anisocytosis ABG Methemoglobin VBG pH VBG pCO2 VBG pO2 VBG HCO3 VBG Total CO2 VBG O2 Saturation Carboxyhemoglobin Total Hemoglobin Chloride BUN 28 H Creatinine 1.6 H POC Creatinine 1.7 H Glucose 218 H Hemoglobin A1c Uric Acid Calcium 8.0 L Phosphorus Magnesium Lactate Dehydrogenase C-Reactive Protein Albumin Globulin 3.9 H Albumin/Globulin Ratio 0.8 L Triglycerides Urine Glucose (UA) 500 mg/dl A Urine Occult Blood Moderate A Urine Mucus Few A 10/15/21 10/15/21 16:32 16:32 WBC RBC Hgb Hct MCHC RDW MPV Seg Neutrophils % Band Neutrophils % Lymphocytes % RBC Morphology Anisocytosis ABG Methemoglobin VBG pH VBG pCO2 VBG pO2 VBG HCO3 VBG Total CO2 VBG O2 Saturation Carboxyhemoglobin Total Hemoglobin Chloride BUN 29 H Creatinine 1.5 H POC Creatinine Glucose 191 H Hemoglobin A1c Uric Acid Calcium Phosphorus Magnesium Lactate Dehydrogenase C-Reactive Protein 5.20 H Albumin Globulin Albumin/Globulin Ratio Triglycerides Urine Glucose (UA) Urine Occult Blood Urine Mucus Meds: Medications Albuterol Sulfate (Albuterol Sulfate 2.5 Mg/3 Ml Nebulizer) 2.5 mg NEB Q2HP PRN PRN Reason: Shortness Of Breath Albuterol/Ipratropium (Ipratropium/Albuterol 3 Ml Ampul.Neb) 3 ml NEB Q6HRT [facility] Last Admin: 10/18/21 13:17 Dose: 3 ml Documented by: Aspirin (Aspirin 81 Mg Tab.Chew) 81 mg PO QDAY [facility] Last Admin: 10/18/21 09:57 Dose: 81 mg Documented by: Cefepime HCl (Cefepime 2 Gm Vial) 2 gm IV Q8H [facility]; Protocol Last Admin: 10/18/21 14:27 Dose: 2 gm Documented by: Chlorhexidine Gluconate (Chlorhexidine Gluconate 1 Ml Oral.Aura) 15 ml SWABMOUTH BID [facility] Last Admin: 10/18/21 08:33 Dose: 15 ml Documented by: Dextrose (Dextrose 50% 50 Ml Vial) 0 ml IV UD PRN PRN Reason: Hypoglycemia Diagnostic Test (Pha) (Accu-Chek 1 Each Strip) 1 each FS ACHS [facility] Last Admin: 10/18/21 12:30 Dose: 1 each Documented by: Docusate Sodium (Docusate Sodium 100 Mg Capsule) 100 mg PO BID [facility] Last Admin: 10/18/21 09:57 Dose: 100 mg Documented by: Donepezil HCl (Donepezil 10 Mg Tablet) 10 mg PO QDAY [facility] Last Admin: 10/18/21 09:57 Dose: 10 mg Documented by: Famotidine (Famotidine/Pf 20 Mg/2 Ml Vial) 20 mg IV HS [facility] Last Admin: 10/17/21 21:19 Dose: 20 mg Documented by: Gabapentin (Gabapentin 300 Mg Capsule) 300 mg PO BID [facility] Last Admin: 10/18/21 09:57 Dose: 300 mg Documented by: Glucose (Dextrose 31 Gm Oral.Susp) 15 gm PO PRN PRN PRN Reason: Hypoglycemia Heparin Sodium (Porcine) (Heparin 5,000 Unit/Ml Vial) 5,000 unit SQ Q12 [facility] Last Admin: 10/18/21 08:33 Dose: 5,000 unit Documented by: Heparin Sodium (Porcine) (Heparin Flush 10 Units/Ml 5 Ml Syringe) 2 ml IV Q12 [facility] Metronidazole (Flagyl) 500 mg in 100 mls @ 100 mls/hr IV Q8H [facility]; Protocol Last Admin: 10/18/21 14:27 Dose: 100 mls/hr Documented by: Dexmedetomidine HCl 400 mcg/ (Premix) 100 mls @ 6.221 mls/hr IV .Q16H5M [facility]; Protocol Last Admin: 10/18/21 16:11 Dose: 0.2 mcg/kg/hr, 6.221 mls/hr Documented by: Acetaminophen (Ofirmev) 1,000 mg in 100 mls @ 200 mls/hr IV Q8H [facility]; Protocol Last Infusion: 10/18/21 09:20 Dose: Infused Documented by: Sodium Chloride (Sodium Chloride 0.9%) 1,000 mls @ 100 mls/hr IV .Q10H [facility] Last Admin: 10/18/21 12:45 Dose: 100 mls/hr Documented by: Insulin Glargine (Insulin Glargine, Human 1 Unit/0.01 Ml) 15 unit SQ HS [facility] Last Admin: 10/17/21 21:19 Dose: 15 unit Documented by: Insulin Human Lispro (Insulin Lispro 1 Unit/0.01 Ml Unit) 0 unit SQ ACHS [facility]; Protocol Last Admin: 10/18/21 13:27 Dose: Not Given Documented by: Labetalol HCl (Labetalol 5 Mg/Ml Ml) 10 mg IV Q10M PRN PRN Reason: blood pressure Lactulose (Lactulose 20 Gm/30 Ml Oral.Aura) 10 gm PO DAILYP PRN PRN Reason: Constipation Olanzapine (Olanzapine 10 Mg Vial) 5 mg IM Q4HP PRN PRN Reason: Agitation Ondansetron HCl (Ondansetron 4 Mg/2 Ml Vial) 4 mg IV Q4HP PRN; Protocol PRN Reason: Nausea And Vomiting Last Admin: 10/16/21 04:22 Dose: 4 mg Documented by: Senna (Sennosides 1 Tablet) 2 tab PO HSP PRN PRN Reason: Constipation Sertraline HCl (Sertraline 50 Mg Tablet) 50 mg PO QDAY [facility] Last Admin: 10/18/21 09:57 Dose: 50 mg Documented by: Sodium Chloride (0.9 % Sodium Chloride 10 Ml Syringe) 10 ml IV Q8 [facility] Last Admin: 10/18/21 14:28 Dose: Not Given Documented by: Sodium Chloride (0.9 % Sodium Chloride 10 Ml Syringe) 10 ml IV UD PRN PRN Reason: FLUSH Sodium Chloride (0.9 % Sodium Chloride 10 Ml Syringe) 10 ml IV Q12 [facility] Vancomycin HCl (Vancomycin Per Pharmacy) 1 order IV UD [facility]; Protocol ABG Interpretation ABG results: 10/15/21 10/17/21 23:18 11:12 ABG Methemoglobin 0.3 L 0.3 L VBG pH 7.24 L 7.30 L VBG pCO2 70.8 H* 56.0 H VBG pO2 38.0 110.2 H VBG HCO3 29.5 H 26.9 VBG Total CO2 31.7 H 28.6 VBG O2 Saturation 60.4 92.9 H VBG Base Excess 1 0 A/P Narrative A/P Narrative: Assessment: 81 year old male with a history of hypertension, type 2 DM, CKD, HFpEF, COPD with chronic hypoxia, depression, probable cognitive impairment, obesity admitted for sepsis secondary to a diabetic left foot infection complicated by osteomyelitis of the distal fifth metatarsal. The patient also was in acute hypoxic respiratory failure and hypercapnic respiratory failure at admission. The patient had bilateral pulmonary infiltrates of unknown cause. He improved clinically with IV antibiotics, IV fluid, respiratory support and partial metatarsal amputation however later developed severe agitation and violent behaviors toward staff. #Resolving sepsis secondary to osteomyelitis of left fifth distal metatarsal #Left fifth distal metatarsal osteomyelitis s/p partial amputation 10/16/21 #Acute on chronic hypoxic respiratory failure #Hypercapnic respiratory failure #Bilateral pulmonary infiltrates or uncertain etiology -Pneumonia vs aspiration vs ARDS secondary to sepsis -MAUREEN and PANTHER negative for SARS-CoV-2 -MAUREEN negative for influenza A&B #Acute kidney injury likely ATN due sepsis #Severe agitation and violent behavior #Possible cognitive impairment #Dysphagia #COPD w/ chronic hypoxia #Chronic kidney disease #Type 2 diabetes mellitus #Peripheral arterial disease #Essential hypertension #HFpEF #Depression #Obesity BMI 37 #Questionable capacity Plan -IV Vancomycin, Cefepime, and Metronidazole for now. -Continue IV fluid, monitor urine output and volume status. -Oxygen supplementation as needed. -Wean off BiPAP as able. -Follow all cultures. -Precedex prn and Zyprexa IM prn for agitation. -Restraints as needed for violent behaviors. -Lantus and SSI-med. -Duoneb Q6 hrs and albuterol prn. -Hold home Metformin, Dapagliflozin Chlorthalidone, Toprol, Losartan, Spironolactone, Torsemide. -Continue Aspirin, Gabapentin. -Monitor healing, patient has peripheral arterial disease however likely adequate blood supply to foot. -Continue marshall catheter for accurate urine output. . -PICC line placement. -Podiatry following. -PT consult. -Speech consult. -NPO for now due to aspiration risk -DVT ppx: heparin SQ -Code status: DNR/DNI -Disposition: TBD, likely 6 weeks of IV antibiotic treatment for osteomyelitis. Time Spent With Patient Time: Total time spent is greater than 50% in coordination of care (as documented) at patient's floor/unit and/or counseling patient:
[2021-10-18] MEDS ORDERED: ceFAZolin 2 GM in DEXTROSE 5% IN WATER 50 ML IV SCH (17:30)
[2021-10-18] MEDS ORDERED: ceFAZolin 1 GM VIAL ONE (18:56)
[2021-10-18] MEDS: FAMOTIDINE/PF 20 MG/2 ML VIAL IV SCH (21:01)
[2021-10-18] MEDS: INSULIN GLARGINE, HUMAN 1 UNIT/0.01 ML SQ SCH (21:05)
[2021-10-19] MEDS: IPRATROPIUM/ALBUTEROL 3 ML AMPUL.NEB NEB SCH ×4 (00:40→18:55)
[2021-10-19] MEDS: ACETAMINOPHEN 1,000 MG/100 ML BAG IV SCH ×3 (00:40→16:56)
[2021-10-19] MEDS: DEXMEDETOMIDINE 400 MCG in PREMIX 1 BAG IV SCH ×4 (02:06→20:49)
[2021-10-19] MEDS: ceFAZolin 1 GM VIAL IV SCH ×3 (03:26→21:31)
[2021-10-19] MEDS: metroNIDAZOLE 500 MG/100 ML BAG IV SCH ×2 (05:13→15:21)
[2021-10-19] MEDS: 0.9 % SODIUM CHLORIDE 1,000 ML IV SCH ×2 (05:13→09:48)
[2021-10-19] MEDS: 0.9 % SODIUM CHLORIDE 10 ML SYRINGE IV SCH ×5 (05:14→21:33)
[2021-10-19] MEDS: OLANZapine 10 MG VIAL IM PRN (06:23)
[2021-10-19 07:06] LABS: Hematocrit 33.8 % (40.1-51.0); Mean Cell Volume 95.5 fL (80.0-100.0); Mean Corpuscular HGB Conc 29.6 g/dL (31.0-36.0); Mean Platelet Volume 11.4 fL (7.4-10.4); Platelet Count 185 K/mcL (140-440); RBC 3.54 M/mcL (4.63-6.08); Red Cell Distribution Width 14.9 % (11.5-14.5); WBC 10.5 K/mcL (4.5-11.0)
[2021-10-19] MEDS: INSULIN LISPRO 1 UNIT/0.01 ML UNIT SQ SCH ×4 (07:35→21:32)
[2021-10-19] MEDS ORDERED: METOPROLOL TARTRATE 5 MG/5 ML VIAL IV PRN ×2 (07:35→08:15)
[2021-10-19 07:38] LABS: ALT/SGPT 14 U/L (<40); AST/SGOT 13 U/L (<40); Albumin 2.7 gm/dL (3.2-5.2); Albumin/Globulin Ratio 0.8 (1.0-2.3); Alkaline Phosphatase 49 U/L (39-117); Bilirubin,Direct < 0.2 mg/dL (0-0.3); Bilirubin,Total < 0.2 mg/dL (0.1-1.0); Blood Urea Nitrogen 55 mg/dL (8-23); Calcium 8.4 mg/dL (8.6-10.4); Carbon Dioxide 22 mmol/L (22-30); Chloride 114 mmol/L (96-108); Globulin 3.5 gm/dL (2.2-3.7); Glomerular Filtration Rate 35; Glucose 127 mg/dL (70-105); Lactate Dehydrogenase 209 U/L (135-225); Phosphorous 3.5 mg/dL (2.5-4.5); Triglycerides 168 mg/dL (<150); Uric Acid 9.4 mg/dL (2.5-8.0)
[2021-10-19] MEDS: GABAPENTIN 300 MG CAPSULE PO SCH ×2 (08:20→21:05)
[2021-10-19] MEDS: DONEPEZIL 10 MG TABLET PO SCH (08:20)
[2021-10-19] MEDS: HEPARIN 5,000 UNIT/ML VIAL SQ SCH ×2 (08:20→21:31)
[2021-10-19] MEDS: CHLORHEXIDINE GLUCONATE 1 ML ORAL.SOL SWABMOUTH SCH ×2 (08:20→21:05)
[2021-10-19] MEDS: ASPIRIN 81 MG TAB.CHEW PO SCH (08:20)
[2021-10-19 08:27] LABS: Anisocytosis 1+ (None Seen); Band Neutrophils % 5 % (0-10); Basophils % (Manual) 2 % (0-2); Eosinophils % (Manual) 1 % (0-7); Hypochromasia FEW (None Seen); Lymphocytes % 8 % (15-49); Monocytes % (Manual) 8 % (1-12); Platelet Estimate NORMAL (Normal); Polychromasia FEW (None Seen); RBC Morphology ABNORMAL (Normal); Reactive Lymphocytes 2 % (0-2); Segmented Neutrophils % 74 % (38-78)
[2021-10-19] MEDS: DOCUSATE SODIUM 100 MG CAPSULE PO SCH ×2 (10:09→20:59)
[2021-10-19] MEDS: SERTRALINE 50 MG TABLET PO SCH (10:17)
[2021-10-19] MEDS: METOPROLOL TARTRATE 5 MG/5 ML VIAL IV SCH ×2 (10:35→10:36)
[2021-10-19 11:24] LABS: ABG Methemoglobin 0.1 % (0.4-1.5); Total Hemoglobin 8.2 gm/Dl (13.5-16.5); VBG Base Excess -8 (-2-3); VBG HCO3 19.3 mmol/L (24.0-28.0); VBG Oxygen Saturation 93.3 % (40.0-70.0); VBG PCO2 49.9 mmHg (41.0-51.0); VBG PH 7.21 U (7.32-7.42); VBG PO2 106.6 mmHg (25.0-40.0); VBG Total CO2 20.9 mmol/L (25.0-29.0)
--- NOTE | 2021-10-19 12:18 | EKG ---
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
--- NOTE | 2021-10-19 12:19 | EKG ---
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
--- NOTE | 2021-10-19 13:25 | Internal Med Progress Note ---
SUBJECTIVE Subjective Patient information: Note initiated : 10/19/21 at 1:24 pm Service Date, if different from initiated Date: [] Patient: Yaakov Jacobson 81 y/o M admitted on 10/15/21 for Shortness of breath. Chief Complaint: [] Principal diagnosis: Osteomyelitis Interval history: Mr. Jacobson is a 81 year old male with a history of hypertension, type 2 diabetes mellitus, COPD with chronic hypoxia, peripheral vascular disease presented to an outside hospital for confusion. Per available documents and report from the emergency department provider, the patient appeared to be septic at that time. The patient was given a dose of ceftriaxone and referred to [facility] emergency department. Upon arrival, the patient appeared to be septic, he also had an increased oxygen requirement, arterial blood gas was consistent with respiratory acidosis. The patient was started on broad-spectrum antibiotics, IV fluids, BiPAP and oxygen supplementation. The cause of sepsis is felt to be a left foot wound that was draining purulent fluid. Chest x-ray showed bilateral pulmonary infiltrates. CODE STATUS was discussed in the emergency department, the patient wishes to be DNR/DNI. Hospital medicine was asked to admit the patient for further management. In the emergency department, the patient was unable to provide a history due to encephalopathy likely secondary to sepsis. He appeared to be breathing comfortably with BiPAP, vitals had improved after IV fluid and broad-spectrum antibiotics. 10/16 CT of the left foot was consistent with osteomyelitis of the distal left fifth metatarsal, podiatry consulted and performed a partial amputation of the left fifth metatarsal. On broad spectrum antibiotics with Vancomycin, Cefepime, Flagy.. Awaiting blood and bone culture results. Sepsis physiology resolving however continues on BiPAP for respiratory failure. PANTHER was negative. Concern for dysphagia, speech consulted. 10/17 Overnight started precedex for agitation. Otherwise Improving slowly, VBG shows improvement in CO2 retention and respiratory acidosis. WBC trending down, renal function about the same with creatinine of 1.6. The patient is able to engage in short conversations, does not feel short of breath. Lantus increased to 15 units HS for morning hyperglycemia, SSI continued at medium dose. Continues NPO pending speech therapy evaluation. Wound swab culture growing polymicrobial St aph, Strep, and Peptococcus. Surgical bone cultures pending. 10/18 Severe agitation today necessitating restraints, restarted Precedex and received Zyprexa IM prn. The patient is behaving violently toward staff, says he wants to leave the hospital but clearly not safe to do so. The patient does not have capacity at this time. Surgical cultures pending. Blood cultures showing no growth to date. PICC placement ordered for prolonged IV antibiotic treatment of foot infection complicated by osteomyelitis. Deescalated antibiotics to Cefazolin and Metronidazole. Resumed IV fluid due to low urine output and increase in creatinine. 10/19 Developed a short period of atrial fibrillation with RVR before converting back to normal sinus rhythm. Bone culture growing Peptostreptococcus anaerobius. Brie l function improving, discontinued IV fluid. Continues in restraints for agitation that is worse at night, continues on Precedex as needed for agitation. Started Seroquel, will try to wean off precedex today. CO2 retention improved. More interactive and pleasant during the daytime. Physical exam Head: Atraumatic, normal inspection. Eyes: normal appearance, no scleral icterus. Neck: full ROM Respiratory: on BiPAP, respiratory rate in the low to mid 20s. Cardiovascular: regular rate and rhythm, S1, S2. GI/Abdominal: Obesely distended, soft, nontender, no guarding. Extremities: full range of motion, nontender. Neurological: CN II-XII intact, intact motor, intact sensation. Psychiatric: normal mood, severely agitated, impaired cognition. Skin: Left foot covered in clean bandages. Constitutional Vitals: Vital Signs Temp Pulse Resp BP Pulse Ox 97.1 F 51 L 19 136/93 97 10/19/21 12:05 10/19/21 13:20 10/19/21 13:20 10/19/21 13:01 10/19/21 13:20 Period Temp Pulse Resp BP Sys/Wood Pulse Ox Last 24 Hr 97 F-98.5 F 43-131 8-30 100-208/47-123 89-100 Intake and Output 10/18/21 10/19/21 10/19/21 21:59 05:59 13:59 Intake Total 6975 688 8598 Output Total 350 350 700 Balance 797 -48 514 Weight 124.42 kg Intake & Output: Intake & Output 10/18/21 10/19/21 10/19/21 21:59 05:59 13:59 Intake Total 9163 200 2559 Output Total 350 350 700 Balance 797 -48 514 Weight 124.42 kg Intake: IV 4956 260 3114 Sodium Chloride 0.9% 1,000 ml @ 835 1003 100 mls/hr IV .Q10H NANDINI Rx#: [id number] Precedex 400 Mcg/100 ml 62 102 11 Dextrose 400 Mcg In Premix 1 Bag @ 0.2 MCG/KG/HR 6.221 mls/ hr IV .Q16H5M NANDINI Rx#:[id number] Ancef 2 gm In Dextrose 5% in 50 Water 50 ml @ 100 mls/hr IV Q8H NANDINI Rx#:[id number] Output: Urine Catheter Amount 350 350 700 Other: Meal Breakfast Percent of Meal Consumed 25% Feeding Ability Total Assistance Urine Appearance Clear Clear Clear Uretheral (Marshall) Clear Clear Urine Color Dark Yellow Dark Yellow Bright Yellow Uretheral (Marshall) Dark Yellow Light Tanya Stool Color Brown Yellow Stool Consistency Liquid # Bowel Movements 1 # of times incontinent of 1 Bowels OBJ DATA Labs CBC & Chem 7: 10/19/21 05:31 10/19/21 05:30 Labs: Abnormal Lab Results 10/19/21 10/19/21 10/19/21 10:50 05:31 05:30 WBC RBC 3.54 L Hgb 10.0 L Hct 33.8 L MCHC 29.6 L RDW 14.9 H MPV 11.4 H Seg Neutrophils % Lymphocytes % 8 L RBC Morphology Abnormal A Polychromasia Few A Hypochromasia Few A Anisocytosis 1+ A ABG Methemoglobin 0.1 L VBG pH 7.21 L VBG pCO2 VBG pO2 106.6 H VBG HCO3 19.3 L VBG Total CO2 20.9 L VBG O2 Saturation 93.3 H VBG Base Excess -8 L Carboxyhemoglobin 5.0 H Total Hemoglobin 8.2 L Chloride 114 H BUN 55 H Creatinine 1.8 H Glucose 127 H Uric Acid 9.4 H Calcium 8.4 L Magnesium 2.8 H Albumin 2.7 L Albumin/Globulin Ratio 0.8 L Triglycerides 168 H 10/18/21 10/18/21 10/17/21 05:19 05:19 11:12 WBC 17.5 H RBC 3.55 L Hgb 10.1 L Hct 34.0 L MCHC 29.7 L RDW 14.8 H MPV 11.3 H Seg Neutrophils % 86 H Lymphocytes % 3 L RBC Morphology Polychromasia Hypochromasia Anisocytosis ABG Methemoglobin 0.3 L VBG pH 7.30 L VBG pCO2 56.0 H VBG pO2 110.2 H VBG HCO3 VBG Total CO2 VBG O2 Saturation 92.9 H VBG Base Excess Carboxyhemoglobin 5.1 H Total Hemoglobin 10.4 L Chloride 112 H BUN 56 H Creatinine 1.9 H Glucose 133 H Uric Acid 9.7 H Calcium Magnesium 2.8 H Albumin 2.9 L Albumin/Globulin Ratio 0.8 L Triglycerides 168 H 10/17/21 10/17/21 05:46 05:45 WBC 18.4 H RBC 3.59 L Hgb 10.2 L Hct 34.3 L MCHC 29.7 L RDW 14.6 H MPV 11.1 H Seg Neutrophils % 91 H Lymphocytes % 3 L RBC Morphology Polychromasia Hypochromasia Anisocytosis ABG Methemoglobin VBG pH VBG pCO2 VBG pO2 VBG HCO3 VBG Total CO2 VBG O2 Saturation VBG Base Excess Carboxyhemoglobin Total Hemoglobin Chloride BUN 38 H Creatinine 1.6 H Glucose 203 H Uric Acid 8.1 H Calcium Magnesium 2.6 H Albumin Albumin/Globulin Ratio 0.9 L Triglycerides Meds: Medications Albuterol Sulfate (Albuterol Sulfate 2.5 Mg/3 Ml Nebulizer) 2.5 mg NEB Q2HP PRN PRN Reason: Shortness Of Breath Albuterol/Ipratropium (Ipratropium/Albuterol 3 Ml Ampul.Neb) 3 ml NEB Q6HRT COUNTS INCLUDE 234 BEDS AT THE [facility] Last Admin: 10/19/21 13:18 Dose: 3 ml Documented by: Aspirin (Aspirin 81 Mg Tab.Chew) 81 mg PO QDAY COUNTS INCLUDE 234 BEDS AT THE [facility] Last Admin: 10/19/21 08:20 Dose: 81 mg Documented by: Cefazolin Sodium (Cefazolin 1 Gm Vial) 2 gm IV Q8H COUNTS INCLUDE 234 BEDS AT THE [facility] Last Admin: 10/19/21 11:55 Dose: 2 gm Documented by: Chlorhexidine Gluconate (Chlorhexidine Gluconate 1 Ml Oral.Aura) 15 ml SWABMOUTH BID COUNTS INCLUDE 234 BEDS AT THE [facility] Last Admin: 10/19/21 08:20 Dose: 15 ml Documented by: Dextrose (Dextrose 50% 50 Ml Vial) 0 ml IV UD PRN PRN Reason: Hypoglycemia Diagnostic Test (Pha) (Accu-Chek 1 Each Strip) 1 each FS ACHS COUNTS INCLUDE 234 BEDS AT THE [facility] Last Admin: 10/19/21 11:49 Dose: 1 each Documented by: Docusate Sodium (Docusate Sodium 100 Mg Capsule) 100 mg PO BID COUNTS INCLUDE 234 BEDS AT THE [facility] Last Admin: 10/19/21 10:09 Dose: Not Given Documented by: Donepezil HCl (Donepezil 10 Mg Tablet) 10 mg PO QDAY COUNTS INCLUDE 234 BEDS AT THE [facility] Last Admin: 10/19/21 08:20 Dose: 10 mg Documented by: Famotidine (Famotidine/Pf 20 Mg/2 Ml Vial) 20 mg IV [facility] Last Admin: 10/18/21 21:01 Dose: 20 mg Documented by: Gabapentin (Gabapentin 300 Mg Capsule) 300 mg PO BID COUNTS INCLUDE 234 BEDS AT THE [facility] Last Admin: 10/19/21 08:20 Dose: 300 mg Documented by: Glucose (Dextrose 31 Gm Oral.Susp) 15 gm PO PRN PRN PRN Reason: Hypoglycemia Heparin Sodium (Porcine) (Heparin 5,000 Unit/Ml Vial) 5,000 unit SQ Q12 COUNTS INCLUDE 234 BEDS AT THE [facility] Last Admin: 10/19/21 08:20 Dose: 5,000 unit Documented by: Heparin Sodium (Porcine) (Heparin Flush 10 Units/Ml 5 Ml Syringe) 2 ml IV Q12 COUNTS INCLUDE 234 BEDS AT THE [facility] Last Admin: 10/19/21 08:33 Dose: Not Given Documented by: Metronidazole (Flagyl) 500 mg in 100 mls @ 100 mls/hr IV Q8H COUNTS INCLUDE 234 BEDS AT THE [facility]; Protocol Last Infusion: 10/19/21 06:46 Dose: Infused Documented by: Dexmedetomidine HCl 400 mcg/ (Premix) 100 mls @ 6.221 mls/hr IV .Q16H5M COUNTS INCLUDE 234 BEDS AT THE [facility]; Protocol Last Titration: 10/19/21 06:47 Dose: 0.4 mcg/kg/hr, 12.442 mls/hr Documented by: Acetaminophen (Ofirmev) 1,000 mg in 100 mls @ 200 mls/hr IV Q8H COUNTS INCLUDE 234 BEDS AT THE [facility]; Protocol Last Infusion: 10/19/21 10:40 Dose: Infused Documented by: Insulin Glargine (Insulin Glargine, Human 1 Unit/0.01 Ml) 15 unit SQ [facility] Last Admin: 10/18/21 21:05 Dose: 15 unit Documented by: Insulin Human Lispro (Insulin Lispro 1 Unit/0.01 Ml Unit) 0 unit SQ [facility]; Protocol Last Admin: 10/19/21 11:50 Dose: 2 units Documented by: Labetalol HCl (Labetalol 5 Mg/Ml Ml) 10 mg IV Q10M PRN PRN Reason: blood pressure Lactulose (Lactulose 20 Gm/30 Ml Oral.Aura) 10 gm PO DAILYP PRN PRN Reason: Constipation Metoprolol Tartrate (Metoprolol Tartrate 5 Mg/5 Ml Vial) 5 mg IV Q2HP PRN PRN Reason: Tachyarrhythmias Ondansetron HCl (Ondansetron 4 Mg/2 Ml Vial) 4 mg IV Q4HP PRN; Protocol PRN Reason: Nausea And Vomiting Last Admin: 10/16/21 04:22 Dose: 4 mg Documented by: Quetiapine Fumarate (Quetiapine 25 Mg Tablet) 25 mg PO DAILY@1700 COUNTS INCLUDE 234 BEDS AT THE [facility] Senna (Sennosides 1 Tablet) 2 tab PO HSP PRN PRN Reason: Constipation Sertraline HCl (Sertraline 50 Mg Tablet) 50 mg PO QDAY COUNTS INCLUDE 234 BEDS AT THE [facility] Last Admin: 10/19/21 10:17 Dose: Not Given Documented by: Sodium Chloride (0.9 % Sodium Chloride 10 Ml Syringe) 10 ml IV Q8 COUNTS INCLUDE 234 BEDS AT THE [facility] Last Admin: 10/19/21 05:14 Dose: 10 ml Documented by: Sodium Chloride (0.9 % Sodium Chloride 10 Ml Syringe) 10 ml IV UD PRN PRN Reason: FLUSH Sodium Chloride (0.9 % Sodium Chloride 10 Ml Syringe) 10 ml IV Q12 COUNTS INCLUDE 234 BEDS AT THE [facility] Last Admin: 10/19/21 10:17 Dose: Not Given Documented by: ABG Interpretation ABG results: 10/15/21 10/17/21 10/19/21 23:18 11:12 10:50 ABG Methemoglobin 0.3 L 0.3 L 0.1 L VBG pH 7.24 L 7.30 L 7.21 L VBG pCO2 70.8 H* 56.0 H 49.9 VBG pO2 38.0 110.2 H 106.6 H VBG HCO3 29.5 H 26.9 19.3 L VBG Total CO2 31.7 H 28.6 20.9 L VBG O2 Saturation 60.4 92.9 H 93.3 H VBG Base Excess 1 0 -8 L A/P Narrative A/P Narrative: Assessment: 81 year old male with a history of hypertension, type 2 DM, CKD, HFpEF, COPD with chronic hypoxia, depression, probable cognitive impairment, obesity admitted for sepsis secondary to a diabetic left foot infection complicated by osteomyelitis of the distal fifth metatarsal. The patient also was in acute hypoxic respiratory failure and hypercapnic respiratory failure at admission. The patient had bilateral pulmonary infiltrates of unknown cause but most likely pneumonia, aspiration, or ARDS from sepsis. He improved clinically after receiving IV antibiotics, IV fluid, respiratory support and partial metatarsal amputation of the infected metatarsal. He later developed severe agitation and violent behaviors toward staff requiring medical and physical restraints. #Resolving sepsis secondary to osteomyelitis of left fifth distal metatarsal #Left fifth distal metatarsal osteomyelitis s/p partial amputation 10/16/21 #Acute on chronic hypoxic respiratory failure #Hypercapnic respiratory failure #Bilateral pulmonary infiltrates or uncertain etiology -Pneumonia vs aspiration vs ARDS secondary to sepsis -MAUREEN and PANTHER negative for SARS-CoV-2 -MAUREEN negative for influenza A&B #Acute kidney injury likely ATN due sepsis #Severe agitation and violent behavior #Possible cognitive impairment #Dysphagia #COPD w/ chronic hypoxia #Chronic kidney disease #Type 2 diabetes mellitus #Peripheral arterial disease #Essential hypertension #HFpEF #Depression #Obesity BMI 37 #Questionable capacity Plan -Cefazolin and Metronidazole IV for now. -Discontinue IV fluid, monitor renal function and volume status. -Consider diuresis as renal function improves. -Oxygen supplementation as needed. -Wean off BiPAP as able. -Follow all cultures. -Seroquel HS. -Precedex prn for agitation. -Restraints as needed for violent behaviors. -Lantus and SSI-med. -Duoneb Q6 hrs and albuterol prn. -Hold home Metformin, Dapagliflozin Chlorthalidone, Toprol, Losartan, Spironolactone, Torsemide. -Continue Aspirin, Gabapentin. -Monitor healing, patient has peripheral arterial disease however likely adequate blood supply to foot. -Continue marshall catheter for accurate urine output. . -PICC line placement for anticipated prolonged IV antibiotics treatment of o steomyelitis. -Podiatry following. -PT following. -Diet per speech recommendations. -DVT ppx: heparin SQ -Code status: DNR/DNI -Disposition: Probably SNF, probably 6 weeks of IV antibiotic treatment for osteomyelitis. Time Spent With Patient Time: Total time spent is greater than 50% in coordination of care (as documented) at patient's floor/unit and/or counseling patient:
[2021-10-19] MEDS ORDERED: FUROSEMIDE 40 MG/4 ML VIAL IV ONE (17:10)
--- NOTE | 2021-10-19 17:44 | XRay Report ---
INDICATION: Increased work of breathing TECHNIQUE: AP portable semiupright chest x-ray COMPARISON: Previous chest x-rays dated 10/15/2021 FINDINGS: Lungs:Increased consolidation at the right lung base. Infiltrates are otherwise improved since previous examination. Heart, vascular:No significant cardiomegaly. Pulmonary vascularity is normal. No pulmonary edema or pulmonary congestion Mediastinum, victor manuel:No mediastinal widening. No hilar mass Pleura:No detectable pleural effusion on this AP radiograph Skeletal:Negative. IMPRESSION: 1. Increased consolidation at the right lung base 2. Otherwise improved infiltrates Interpreted and Authenticated by: Cristian Rowland 10/19/21
[2021-10-19] MEDS: QUEtiapine 25 MG TABLET PO SCH (17:55)
[2021-10-19] MEDS ORDERED: DEXMEDETOMIDINE 100 ML IV ONE (20:55)
[2021-10-19] MEDS: FAMOTIDINE/PF 20 MG/2 ML VIAL IV SCH (21:32)
[2021-10-19] MEDS: INSULIN GLARGINE, HUMAN 1 UNIT/0.01 ML SQ SCH (21:32)
[2021-10-20] MEDS: metroNIDAZOLE 500 MG/100 ML BAG IV SCH ×2 (02:51→06:58)
[2021-10-20] MEDS: IPRATROPIUM/ALBUTEROL 3 ML AMPUL.NEB NEB SCH ×4 (02:51→19:15)
[2021-10-20] MEDS: DEXMEDETOMIDINE 400 MCG in PREMIX 1 BAG IV SCH ×5 (02:53→20:29)
[2021-10-20] MEDS: ACETAMINOPHEN 1,000 MG/100 ML BAG IV SCH ×3 (05:50→17:15)
[2021-10-20] MEDS: ceFAZolin 1 GM VIAL IV SCH (05:54)
[2021-10-20] MEDS: 0.9 % SODIUM CHLORIDE 10 ML SYRINGE IV SCH ×5 (05:54→21:28)
[2021-10-20 07:09] LABS: Hematocrit 36.4 % (40.1-51.0); Hemoglobin 10.7 g/dL (13.7-17.5); Mean Cell Volume 96.6 fL (80.0-100.0); Mean Corpuscular HGB Conc 29.4 g/dL (31.0-36.0); Mean Platelet Volume 11.4 fL (7.4-10.4); Platelet Count 192 K/mcL (140-440); RBC 3.77 M/mcL (4.63-6.08); Red Cell Distribution Width 14.8 % (11.5-14.5); WBC 10.8 K/mcL (4.5-11.0)
[2021-10-20] MEDS: INSULIN LISPRO 1 UNIT/0.01 ML UNIT SQ SCH ×4 (07:20→21:16)
[2021-10-20 07:51] LABS: ALT/SGPT 13 U/L (<40); AST/SGOT 15 U/L (<40); Albumin 2.9 gm/dL (3.2-5.2); Albumin/Globulin Ratio 0.8 (1.0-2.3); Alkaline Phosphatase 48 U/L (39-117); Bilirubin,Direct < 0.2 mg/dL (0-0.3); Bilirubin,Total < 0.2 mg/dL (0.1-1.0); Blood Urea Nitrogen 49 mg/dL (8-23); Calcium 8.6 mg/dL (8.6-10.4); Carbon Dioxide 19 mmol/L (22-30); Chloride 114 mmol/L (96-108); Globulin 3.6 gm/dL (2.2-3.7); Glomerular Filtration Rate 43; Glucose 129 mg/dL (70-105); Lactate Dehydrogenase 237 U/L (135-225); Phosphorous 3.3 mg/dL (2.5-4.5); Triglycerides 185 mg/dL (<150); Uric Acid 8.9 mg/dL (2.5-8.0)
[2021-10-20] MEDS ORDERED: FUROSEMIDE 100 MG/10 ML VIAL IV ONE (08:34)
[2021-10-20] MEDS: SERTRALINE 50 MG TABLET PO SCH (08:37)
[2021-10-20] MEDS: ASPIRIN 81 MG TAB.CHEW PO SCH (08:37)
[2021-10-20] MEDS: HEPARIN 5,000 UNIT/ML VIAL SQ SCH ×2 (08:37→21:27)
[2021-10-20] MEDS: DONEPEZIL 10 MG TABLET PO SCH (08:37)
[2021-10-20] MEDS: DOCUSATE SODIUM 100 MG CAPSULE PO SCH ×2 (08:37→21:09)
[2021-10-20] MEDS: GABAPENTIN 300 MG CAPSULE PO SCH ×2 (08:38→21:26)
[2021-10-20 09:02] LABS: Band Neutrophils % 5 % (0-10); Eosinophils % (Manual) 2 % (0-7); Lymphocytes % 8 % (15-49); Monocytes % (Manual) 10 % (1-12); Platelet Estimate NORMAL (Normal); RBC Morphology NORMAL (Normal); Segmented Neutrophils % 75 % (38-78)
[2021-10-20] MEDS: PIPERACILLIN SODIUM/TAZOBACTAM 4.5 GM in DEXTROSE 5% IN WATER 50 ML IV SCH ×3 (09:11→17:54)
[2021-10-20] MEDS: CHLORHEXIDINE GLUCONATE 1 ML ORAL.SOL SWABMOUTH SCH ×2 (10:53→21:28)
--- NOTE | 2021-10-20 10:59 | Internal Med Progress Note ---
SUBJECTIVE Subjective Patient information: Note initiated : 10/20/21 at 10:49 am Service Date, if different from initiated Date: [] Patient: Yaakov Jacobson 81 y/o M admitted on 10/15/21 for Shortness of breath. Chief Complaint: [] Principal diagnosis: Osteomyelitis Interval history: Mr. Jacobson is a 81 year old male with a history of hypertension, type 2 diabetes mellitus, COPD with chronic hypoxia, peripheral vascular disease presented to an outside hospital for confusion. Per available documents and report from the emergency department provider, the patient appeared to be septic at that time. The patient was given a dose of ceftriaxone and referred to [facility] emergency department. Upon arrival, the patient appeared to be septic, he also had an increased oxygen requirement, arterial blood gas was consistent with respiratory acidosis. The patient was started on broad-spectrum antibiotics, IV fluids, BiPAP and oxygen supplementation. The cause of sepsis is felt to be a left foot wound that was draining purulent fluid. Chest x-ray showed bilateral pulmonary infiltrates. CODE STATUS was discussed in the emergency department, the patient wishes to be DNR/DNI. Hospital medicine was asked to admit the patient for further management. In the emergency department, the patient was unable to provide a history due to encephalopathy likely secondary to sepsis. He appeared to be breathing comfortably with BiPAP, vitals had improved after IV fluid and broad-spectrum antibiotics. 10/16 CT of the left foot was consistent with osteomyelitis of the distal left fifth metatarsal, podiatry consulted and performed a partial amputation of the left fifth metatarsal. On broad spectrum antibiotics with Vancomycin, Cefepime, Flagy.. Awaiting blood and bone culture results. Sepsis physiology resolving however continues on BiPAP for respiratory failure. PANTHER was negative. Concern for dysphagia, speech consulted. 10/17 Overnight started precedex for agitation. Otherwise Improving slowly, VBG shows improvement in CO2 retention and respiratory acidosis. WBC trending down, renal function about the same with creatinine of 1.6. The patient is able to engage in short conversations, does not feel short of breath. Lantus increased to 15 units HS for morning hyperglycemia, SSI continued at medium dose. Continues NPO pending speech therapy evaluation. Wound swab culture growing polymicrobial S taph, Strep, and Peptococcus. Surgical bone cultures pending. 10/18 Severe agitation today necessitating restraints, restarted Precedex and received Zyprexa IM prn. The patient is behaving violently toward staff, says he wants to leave the hospital but clearly not safe to do so. The patient does not have capacity at this time. Surgical cultures pending. Blood cultures showing no growth to date. PICC placement ordered for prolonged IV antibiotic treatment of foot infection complicated by osteomyelitis. Deescalated antibiotics to Cefazolin and Metronidazole. Resumed IV fluid due to low urine output and increase in creatinine. 10/19 Developed a short period of atrial fibrillation with RVR before converting back to normal sinus rhythm. Bone culture growing Peptostreptococcus anaerobius. Arash al function improving, discontinued IV fluid. Continues in restraints for agitation that is worse at night, continues on Precedex as needed for agitation. Started Seroquel, will try to wean off precedex today. CO2 retention improved. More interactive and pleasant during the daytime. 10/20 Transition antibiotics to Zosyn IV as CRP is increasing and procalcitonin markedly elevated. Chest x-ray showed increasing consolidation at the right lung base. CT chest without contrast ordered for further evaluation. Renal function improving, continues on BiPAP. ABG showed mild acidosis with a pH of 7.32, PCO2 47, PO2 75 on BiPAP 20/5 and FiO2 30. Continues on Precedex as needed for severe intermittent agitation. Appears to be volume overloaded, Lasix 60 mg once IV. Physical exam Head: Atraumatic, normal inspection. Eyes: normal appearance, no scleral icterus. Neck: full ROM Respiratory: on BiPAP, respiratory rate in the low to mid 20s. Cardiovascular: regular bradycardia, S1, S2. GI/Abdominal: Obesely distended, soft, nontender, no guarding. : Marshall catheter present Extremities: full range of motion, nontender. Neurological: CN II-XII intact, intact motor, intact sensation. Psychiatric: Resting comfortably, not agitated Skin: Left foot covered in clean bandages. Constitutional Vitals: Vital Signs Temp Pulse Resp BP Pulse Ox 96.9 F L 54 L 20 145/78 96 10/20/21 00:01 10/20/21 10:13 10/20/21 10:13 10/20/21 04:31 10/20/21 10:13 Period Temp Pulse Resp BP Sys/Wood Pulse Ox Last 24 Hr 96.7 F-97.2 F 46-80 17-36 120-165/57-93 91-100 Intake and Output 10/19/21 10/20/21 10/20/21 21:59 05:59 13:59 Intake Total 1122 200 98 Output Total 125 1200 400 Balance 997 -1000 -302 Weight 126.28 kg Intake & Output: Intake & Output 10/19/21 10/20/21 10/20/21 21:59 05:59 13:59 Intake Total 1122 200 98 Output Total 125 1200 400 Balance 997 -1000 -302 Weight 126.28 kg Intake: Nourishment/Supplement quantity 240 (ml) IV 282 200 98 Precedex 400 Mcg/100 ml 82 100 98 Dextrose 400 Mcg In Premix 1 Bag @ 0.2 MCG/KG/HR 6.221 mls/ hr IV .Q16H5M [facility] Rx#:[id number] Oral 600 Output: Urine Catheter Amount 125 1200 400 Other: Meal Dinner Percent of Meal Consumed 25% Feeding Ability Independent Nourishment/Supplement name glucerna Urine Appearance Clear Clear Uretheral (Marshall) Clear Urine Color Light Tanya Pale OBJ DATA Labs CBC & Chem 7: 10/20/21 05:25 10/20/21 05:25 Labs: Abnormal Lab Results 10/20/21 10/20/21 10/20/21 05:25 05:25 05:25 WBC RBC 3.77 L Hgb 10.7 L Hct 36.4 L MCHC 29.4 L RDW 14.8 H MPV 11.4 H Seg Neutrophils % Lymphocytes % 8 L RBC Morphology Polychromasia Hypochromasia Anisocytosis ABG Methemoglobin VBG pH VBG pCO2 VBG pO2 VBG HCO3 VBG Total CO2 VBG O2 Saturation VBG Base Excess Carboxyhemoglobin Total Hemoglobin Chloride 114 H Carbon Dioxide 19 L BUN 49 H Creatinine 1.5 H Glucose 129 H Uric Acid 8.9 H Calcium Magnesium 2.9 H Lactate Dehydrogenase 237 H C-Reactive Protein 8.80 H Albumin 2.9 L Albumin/Globulin Ratio 0.8 L Triglycerides 185 H Procalcitonin 3.65 H 10/19/21 10/19/21 10/19/21 10:50 05:31 05:30 WBC RBC 3.54 L Hgb 10.0 L Hct 33.8 L MCHC 29.6 L RDW 14.9 H MPV 11.4 H Seg Neutrophils % Lymphocytes % 8 L RBC Morphology Abnormal A Polychromasia Few A Hypochromasia Few A Anisocytosis 1+ A ABG Methemoglobin 0.1 L VBG pH 7.21 L VBG pCO2 VBG pO2 106.6 H VBG HCO3 19.3 L VBG Total CO2 20.9 L VBG O2 Saturation 93.3 H VBG Base Excess -8 L Carboxyhemoglobin 5.0 H Total Hemoglobin 8.2 L Chloride 114 H Carbon Dioxide BUN 55 H Creatinine 1.8 H Glucose 127 H Uric Acid 9.4 H Calcium 8.4 L Magnesium 2.8 H Lactate Dehydrogenase C-Reactive Protein Albumin 2.7 L Albumin/Globulin Ratio 0.8 L Triglycerides 168 H Procalcitonin 10/18/21 10/18/21 10/17/21 05:19 05:19 11:12 WBC 17.5 H RBC 3.55 L Hgb 10.1 L Hct 34.0 L MCHC 29.7 L RDW 14.8 H MPV 11.3 H Seg Neutrophils % 86 H Lymphocytes % 3 L RBC Morphology Polychromasia Hypochromasia Anisocytosis ABG Methemoglobin 0.3 L VBG pH 7.30 L VBG pCO2 56.0 H VBG pO2 110.2 H VBG HCO3 VBG Total CO2 VBG O2 Saturation 92.9 H VBG Base Excess Carboxyhemoglobin 5.1 H Total Hemoglobin 10.4 L Chloride 112 H Carbon Dioxide BUN 56 H Creatinine 1.9 H Glucose 133 H Uric Acid 9.7 H Calcium Magnesium 2.8 H Lactate Dehydrogenase C-Reactive Protein Albumin 2.9 L Albumin/Globulin Ratio 0.8 L Triglycerides 168 H Procalcitonin Meds: Medications Albuterol Sulfate (Albuterol Sulfate 2.5 Mg/3 Ml Nebulizer) 2.5 mg NEB Q2HP PRN PRN Reason: Shortness Of Breath Albuterol/Ipratropium (Ipratropium/Albuterol 3 Ml Ampul.Neb) 3 ml NEB Q6HRT [facility] Last Admin: 10/20/21 06:49 Dose: 3 ml Documented by: Aspirin (Aspirin 81 Mg Tab.Chew) 81 mg PO QDAY [facility] Last Admin: 10/20/21 08:37 Dose: 81 mg Documented by: Chlorhexidine Gluconate (Chlorhexidine Gluconate 1 Ml Oral.Aura) 15 ml SWABMOUTH BID [facility] Last Admin: 10/19/21 21:05 Dose: 15 ml Documented by: Dextrose (Dextrose 50% 50 Ml Vial) 0 ml IV UD PRN PRN Reason: Hypoglycemia Diagnostic Test (Pha) (Accu-Chek 1 Each Strip) 1 each FS ACHS [facility] Last Admin: 10/20/21 07:20 Dose: 1 each Documented by: Docusate Sodium (Docusate Sodium 100 Mg Capsule) 100 mg PO BID [facility] Last Admin: 10/20/21 08:37 Dose: 100 mg Documented by: Donepezil HCl (Donepezil 10 Mg Tablet) 10 mg PO QDAY [facility] Last Admin: 10/20/21 08:37 Dose: 10 mg Documented by: Famotidine (Famotidine/Pf 20 Mg/2 Ml Vial) 20 mg IV HS [facility] Last Admin: 10/19/21 21:32 Dose: 20 mg Documented by: Gabapentin (Gabapentin 300 Mg Capsule) 300 mg PO BID [facility] Last Admin: 10/20/21 08:38 Dose: 300 mg Documented by: Glucose (Dextrose 31 Gm Oral.Susp) 15 gm PO PRN PRN PRN Reason: Hypoglycemia Heparin Sodium (Porcine) (Heparin 5,000 Unit/Ml Vial) 5,000 unit SQ Q12 [facility] Last Admin: 10/20/21 08:37 Dose: 5,000 unit Documented by: Heparin Sodium (Porcine) (Heparin Flush 10 Units/Ml 5 Ml Syringe) 2 ml IV Q12 [facility] Last Admin: 10/20/21 08:39 Dose: Not Given Documented by: Dexmedetomidine HCl 400 mcg/ (Premix) 100 mls @ 6.221 mls/hr IV .Q16H5M [facility]; Protocol Last Admin: 10/20/21 08:09 Dose: 0.6 mcg/kg/hr, 18.663 mls/hr Documented by: Acetaminophen (Ofirmev) 1,000 mg in 100 mls @ 200 mls/hr IV Q8H [facility]; Protocol Last Admin: 10/20/21 10:07 Dose: 200 mls/hr Documented by: Piperacillin Sod/Tazobactam (Sod 4.5 gm/ Dextrose) 50 mls @ 100 mls/hr IV Q6H [facility]; Protocol Last Admin: 10/20/21 09:11 Dose: 100 mls/hr Documented by: Insulin Glargine (Insulin Glargine, Human 1 Unit/0.01 Ml) 15 unit SQ HS [facility] Last Admin: 10/19/21 21:32 Dose: 15 unit Documented by: Insulin Human Lispro (Insulin Lispro 1 Unit/0.01 Ml Unit) 0 unit SQ [facility]; Protocol Last Admin: 10/20/21 07:20 Dose: Not Given Documented by: Labetalol HCl (Labetalol 5 Mg/Ml Ml) 10 mg IV Q10M PRN PRN Reason: blood pressure Lactulose (Lactulose 20 Gm/30 Ml Oral.Aura) 10 gm PO DAILYP PRN PRN Reason: Constipation Metoprolol Tartrate (Metoprolol Tartrate 5 Mg/5 Ml Vial) 5 mg IV Q2HP PRN PRN Reason: Tachyarrhythmias Ondansetron HCl (Ondansetron 4 Mg/2 Ml Vial) 4 mg IV Q4HP PRN; Protocol PRN Reason: Nausea And Vomiting Last Admin: 10/16/21 04:22 Dose: 4 mg Documented by: Quetiapine Fumarate (Quetiapine 25 Mg Tablet) 25 mg PO DAILY@1700 [facility] Last Admin: 10/19/21 17:55 Dose: 25 mg Documented by: Senna (Sennosides 1 Tablet) 2 tab PO HSP PRN PRN Reason: Constipation Sertraline HCl (Sertraline 50 Mg Tablet) 50 mg PO QDAY [facility] Last Admin: 10/20/21 08:37 Dose: 50 mg Documented by: Sodium Chloride (0.9 % Sodium Chloride 10 Ml Syringe) 10 ml IV Q8 [facility] Last Admin: 10/20/21 05:54 Dose: 10 ml Documented by: Sodium Chloride (0.9 % Sodium Chloride 10 Ml Syringe) 10 ml IV UD PRN PRN Reason: FLUSH Sodium Chloride (0.9 % Sodium Chloride 10 Ml Syringe) 10 ml IV Q12 [facility] Last Admin: 10/19/21 21:05 Dose: Not Given Documented by: ABG Interpretation ABG results: 10/15/21 10/17/21 10/19/21 23:18 11:12 10:50 ABG Methemoglobin 0.3 L 0.3 L 0.1 L VBG pH 7.24 L 7.30 L 7.21 L VBG pCO2 70.8 H* 56.0 H 49.9 VBG pO2 38.0 110.2 H 106.6 H VBG HCO3 29.5 H 26.9 19.3 L VBG Total CO2 31.7 H 28.6 20.9 L VBG O2 Saturation 60.4 92.9 H 93.3 H VBG Base Excess 1 0 -8 L A/P Narrative A/P Narrative: Assessment: 81 year old male with a history of hypertension, type 2 DM, CKD, HFpEF, COPD with chronic hypoxia, depression, probable cognitive impairment, obesity admitted for sepsis secondary to a diabetic left foot infection compli cated by osteomyelitis of the distal fifth metatarsal. The patient also was in acute hypoxic respiratory failure and hypercapnic respiratory failure at admission. The patient had bilateral pulmonary infiltrates of unknown cause but most likely pneumonia, aspiration, or ARDS from sepsis. He improved clinically after receiving broad-spectrum IV antibiotics, IV fluid, respiratory support and partial metatarsal amputation of the infected metatarsal. He later developed severe agitation and violent behaviors toward staff requiring medical and physical restraints. The patient was started on Precedex for agitation, Seroquel at bedtime was later added. Sepsis physiology improved, renal function improved however the patient continued to have intermittent agitation. CRP trended up, procalcitonin was markedly elevated at 3.65 therefore antibiotics were broadened to Zosyn IV. There is also concern for increasing consolidation at the right lung base. #Resolving sepsis secondary to osteomyelitis of left fifth distal metatarsal #Left fifth distal metatarsal osteomyelitis s/p partial amputation 10/16/21 #Acute on chronic hypoxic respiratory failure #Hypercapnic respiratory failure: Resolved with BiPAP #Bilateral pulmonary infiltrates or uncertain etiology -Chest x-ray showed increasing consolidation at the right lung base. -Pneumonia vs aspiration vs ARDS secondary to sepsis -MAUREEN and PANTHER negative for SARS-CoV-2 -MAUREEN negative for influenza A&B #Improving akidney injury likely ATN due sepsis #Intermittent agitation #Possible cognitive impairment #Dysphagia #COPD w/ chronic hypoxia #Chronic kidney disease #Type 2 diabetes mellitus #Peripheral arterial disease #Essential hypertension #HFpEF #Depression #Obesity BMI 37 #Questionable capacity #Guarded prognosis Plan -Transition to Zosyn for rising CRP, persistently elevated procalcitonin. Discontinue cefazolin and metronidazole. -CT chest for further evaluation of right lung base consolidation/possible pleural effusion. -Lasix 60 mg IV once. -Oxygen supplementation as needed. -Wean off BiPAP as able. -Follow all cultures, follow CRP and procalcitonin. -Seroquel HS and Precedex prn for agitation. -Restraints as needed for violent behaviors. -Lantus and SSI-med. -Duoneb Q6 hrs and albuterol prn. -Hold home Metformin, Dapagliflozin Chlorthalidone, Toprol, Losartan, Spironolactone, Torsemide. -Continue Aspirin, Gabapentin. -Monitor healing, patient has peripheral arterial disease however likely adequ ate blood supply to foot. -Continue marshall catheter for accurate urine output. -PICC line placement for anticipated prolonged IV antibiotics treatment of osteomyelitis. -Podiatry following-Dr. Sutton. -PT following. -Diet per speech recommendations. -Monitor nutritional status, consider nutritional support. -DVT ppx: heparin SQ -Code status: DNR/DNI -Disposition: Probably SNF, probably 6 weeks of IV antibiotic treatment for osteomyelitis. Time Spent With Patient Time: Total time spent is greater than 50% in coordination of care (as documented) at patient's floor/unit and/or counseling patient:
--- NOTE | 2021-10-20 11:15 | Cat Scan Report ---
INDICATION: Evaluate right lung consolidation, pleural effusio COMPARISON: Previous chest x-rays dated 10/19/2021, 10/15/2021. Previous CT scan dated 10/15/2021 TECHNIQUE: Axial noncontrast enhanced images through the chest. Sagittally and coronally reformatted images. MIP reformatted images. FINDINGS: Lungs:Consolidation and volume loss in the right lower lobe. There are air bronchograms. There is right middle lobe volume loss as well. No other focal areas of parenchymal consolidation. There is no detectable endobronchial mass. Mediastinum, vascular:There is nonspecific mediastinal lymphadenopathy. There is calcification of the abdominal aorta. No abdominal aortic aneurysm. Main pulmonary artery is mildly dilated and measures 3.3 cm in cross-sectional diameter. Heart:There is cardiomegaly. There is coronary artery calcification. No pericardial effusion Pleura:There are small pleural effusions bilaterally. Right hemidiaphragm is elevated, unchanged since 10/15/2021 Axilla, supraclavicular regions, chest wall:No axillary or supraclavicular adenopathy. Musculoskeletal:Normal thoracic vertebral body heights. Sagittally reformatted images of the sternum suggest sternal fractures but this appearance is considered artifactual and secondary to motion Upper Abdomen:Upper abdomen is suboptimally visualized. There is infiltration of the pericholecystic fat. This patient has right upper quadrant pain and findings suggestive of cholecystitis right upper quadrant ultrasound may be of benefit. IMPRESSION: 1. Right lower lobe consolidation and volume loss. Mild right middle lobe atelectasis 2. Elevated right hemidiaphragm, essentially unchanged since 10/15/2021 3. Small pleural effusions The exam was performed using radiation dose optimization techniques including, but not limited to, automated exposure control, adjustment of the mA and/or kV according to patient size and use of iterative reconstruction technique. Interpreted and Authenticated by: Cristian Rowland 10/20/21
--- NOTE | 2021-10-20 13:36 | Internal Med Progress Note ---
SUBJECTIVE Subjective Patient information: Note initiated : 10/20/21 at 1:26 pm Service Date, if different from initiated Date: [] Patient: Yaakov Jacobson 81 y/o M admitted on 10/15/21 for Shortness of breath. Chief Complaint: [] Principal diagnosis: Osteomyelitis Interval history: Mr. Jacobson is a 81 year old male with a history of hypertension, type 2 diabetes mellitus, COPD with chronic hypoxia, peripheral vascular disease presented to an outside hospital for confusion. Per available documents and report from the emergency department provider, the patient appeared to be septic at that time. The patient was given a dose of ceftriaxone and referred to [facility] emergency department. Upon arrival, the patient appeared to be septic, he also had an increased oxygen requirement, arterial blood gas was consistent with respiratory acidosis. The patient was started on broad-spectrum antibiotics, IV fluids, BiPAP and oxygen supplementation. The cause of sepsis is felt to be a left foot wound that was draining purulent fluid. Chest x-ray showed bilateral pulmonary infiltrates. CODE STATUS was discussed in the emergency department, the patient wishes to be DNR/DNI. Hospital medicine was asked to admit the patient for further management. In the emergency department, the patient was unable to provide a history due to encephalopathy likely secondary to sepsis. He appeared to be breathing comfortably with BiPAP, vitals had improved after IV fluid and broad-spectrum antibiotics. 10/16 CT of the left foot was consistent with osteomyelitis of the distal left fifth metatarsal, podiatry consulted and performed a partial amputation of the left fifth metatarsal. On broad spectrum antibiotics with Vancomycin, Cefepime, Flagy.. Awaiting blood and bone culture results. Sepsis physiology resolving however continues on BiPAP for respiratory failure. PANTHER was negative. Concern for dysphagia, speech consulted. 10/17 Overnight started precedex for agitation. Otherwise Improving slowly, VBG shows improvement in CO2 retention and respiratory acidosis. WBC trending down, renal function about the same with creatinine of 1.6. The patient is able to engage in short conversations, does not feel short of breath. Lantus increased to 15 units HS for morning hyperglycemia, SSI continued at medium dose. Continues NPO pending speech therapy evaluation. Wound swab culture growing polymicrobial St aph, Strep, and Peptococcus. Surgical bone cultures pending. 10/18 Severe agitation today necessitating restraints, restarted Precedex and received Zyprexa IM prn. The patient is behaving violently toward staff, says he wants to leave the hospital but clearly not safe to do so. The patient does not have capacity at this time. Surgical cultures pending. Blood cultures showing no growth to date. PICC placement ordered for prolonged IV antibiotic treatment of foot infection complicated by osteomyelitis. Deescalated antibiotics to Cefazolin and Metronidazole. Resumed IV fluid due to low urine output and increase in creatinine. 10/19 Developed a short period of atrial fibrillation with RVR before converting back to normal sinus rhythm. Bone culture growing Peptostreptococcus anaerobius. Brie l function improving, discontinued IV fluid. Continues in restraints for agitation that is worse at night, continues on Precedex as needed for agitation. Started Seroquel, will try to wean off precedex today. CO2 retention improved. More interactive and pleasant during the daytime. 10/20 Transition antibiotics to Zosyn IV as CRP is increasing and procalcitonin markedly elevated. Chest x-ray showed increasing consolidation at the right lung base. CT chest without contrast ordered for further evaluation. Renal function improving, continues on BiPAP. ABG showed mild acidosis with a pH of 7.32, PCO2 47, PO2 75 on BiPAP 20/5 and FiO2 30. Continues on Precedex as needed for severe intermittent agitation. Appears to be volume overloaded, Lasix 60 mg once IV. Physical exam Head: Atraumatic, normal inspection. Eyes: normal appearance, no scleral icterus. Neck: full ROM Respiratory: on BiPAP, respiratory rate in the low to mid 20s. Cardiovascular: regular bradycardia, S1, S2. GI/Abdominal: Obesely distended, soft, nontender, no guarding. : Marshall catheter present Extremities: full range of motion, nontender. Neurological: CN II-XII intact, intact motor, intact sensation. Psychiatric: Resting comfortably, not agitated Skin: Left foot covered in clean bandages. Constitutional Vitals: Vital Signs Temp Pulse Resp BP Pulse Ox 96.2 F L 48 L 17 137/68 95 10/20/21 08:01 10/20/21 13:20 10/20/21 13:20 10/20/21 11:01 10/20/21 13:20 Period Temp Pulse Resp BP Sys/Wood Pulse Ox Last 24 Hr 96.2 F-97.2 F 46-80 16-40 120-182/57-138 91-100 Intake and Output 10/19/21 10/20/21 10/20/21 21:59 05:59 13:59 Intake Total 1122 200 348 Output Total 125 1200 400 Balance 997 -1000 -52 Weight 126.28 kg Intake & Output: Intake & Output 10/19/21 10/20/21 10/20/21 21:59 05:59 13:59 Intake Total 1122 200 348 Output Total 125 1200 400 Balance 997 -1000 -52 Weight 126.28 kg Intake: Nourishment/Supplement quantity 240 (ml) IV 282 200 348 Precedex 400 Mcg/100 ml 82 100 98 Dextrose 400 Mcg In Premix 1 Bag @ 0.2 MCG/KG/HR 6.221 mls/ hr IV .Q16H5M [facility] Rx#:[id number] Zosyn 4.5 gm In Dextrose 5% in 50 Water 50 ml @ 100 mls/hr IV Q6H [facility] Rx#:[id number] Oral 600 Output: Urine Catheter Amount 125 1200 400 Other: Meal Dinner Percent of Meal Consumed 25% Feeding Ability Independent Nourishment/Supplement name glucerna Urine Appearance Clear Clear Uretheral (Marshall) Clear Clear Urine Color Light Tanya Pale Exam: General: Alert, Awake, No acute Distress, obese Eyes/N/T: EOMI, Head/Neck: neck supple, CV: Bradycardia sinus, No murmurs, Pulm: Clear b/l, no wheezing/rhonchi/rales Abd: soft, nontender, +BS x4 Ext: no clubbing/cyanosis/edema Neuro: Alert, no focal deficits, moves all extremities, Skin: warm/dry OBJ DATA Labs CBC & Chem 7: 10/20/21 05:25 10/20/21 05:25 Labs: Abnormal Lab Results 10/20/21 10/20/21 10/20/21 05:25 05:25 05:25 WBC RBC 3.77 L Hgb 10.7 L Hct 36.4 L MCHC 29.4 L RDW 14.8 H MPV 11.4 H Seg Neutrophils % Lymphocytes % 8 L RBC Morphology Polychromasia Hypochromasia Anisocytosis ABG Methemoglobin VBG pH VBG pO2 VBG HCO3 VBG Total CO2 VBG O2 Saturation VBG Base Excess Carboxyhemoglobin Total Hemoglobin Chloride 114 H Carbon Dioxide 19 L BUN 49 H Creatinine 1.5 H Glucose 129 H Uric Acid 8.9 H Calcium Magnesium 2.9 H Lactate Dehydrogenase 237 H C-Reactive Protein 8.80 H Albumin 2.9 L Albumin/Globulin Ratio 0.8 L Triglycerides 185 H Procalcitonin 3.65 H 10/19/21 10/19/21 10/19/21 10:50 05:31 05:30 WBC RBC 3.54 L Hgb 10.0 L Hct 33.8 L MCHC 29.6 L RDW 14.9 H MPV 11.4 H Seg Neutrophils % Lymphocytes % 8 L RBC Morphology Abnormal A Polychromasia Few A Hypochromasia Few A Anisocytosis 1+ A ABG Methemoglobin 0.1 L VBG pH 7.21 L VBG pO2 106.6 H VBG HCO3 19.3 L VBG Total CO2 20.9 L VBG O2 Saturation 93.3 H VBG Base Excess -8 L Carboxyhemoglobin 5.0 H Total Hemoglobin 8.2 L Chloride 114 H Carbon Dioxide BUN 55 H Creatinine 1.8 H Glucose 127 H Uric Acid 9.4 H Calcium 8.4 L Magnesium 2.8 H Lactate Dehydrogenase C-Reactive Protein Albumin 2.7 L Albumin/Globulin Ratio 0.8 L Triglycerides 168 H Procalcitonin 10/18/21 10/18/21 05:19 05:19 WBC 17.5 H RBC 3.55 L Hgb 10.1 L Hct 34.0 L MCHC 29.7 L RDW 14.8 H MPV 11.3 H Seg Neutrophils % 86 H Lymphocytes % 3 L RBC Morphology Polychromasia Hypochromasia Anisocytosis ABG Methemoglobin VBG pH VBG pO2 VBG HCO3 VBG Total CO2 VBG O2 Saturation VBG Base Excess Carboxyhemoglobin Total Hemoglobin Chloride 112 H Carbon Dioxide BUN 56 H Creatinine 1.9 H Glucose 133 H Uric Acid 9.7 H Calcium Magnesium 2.8 H Lactate Dehydrogenase C-Reactive Protein Albumin 2.9 L Albumin/Globulin Ratio 0.8 L Triglycerides 168 H Procalcitonin Meds: Medications Albuterol Sulfate (Albuterol Sulfate 2.5 Mg/3 Ml Nebulizer) 2.5 mg NEB Q2HP PRN PRN Reason: Shortness Of Breath Albuterol/Ipratropium (Ipratropium/Albuterol 3 Ml Ampul.Neb) 3 ml NEB Q6HRT [facility] Last Admin: 10/20/21 13:14 Dose: 3 ml Documented by: Aspirin (Aspirin 81 Mg Tab.Chew) 81 mg PO QDAY [facility] Last Admin: 10/20/21 08:37 Dose: 81 mg Documented by: Chlorhexidine Gluconate (Chlorhexidine Gluconate 1 Ml Oral.Aura) 15 ml SWABMOUTH BID [facility] Last Admin: 10/20/21 10:53 Dose: 15 ml Documented by: Dextrose (Dextrose 50% 50 Ml Vial) 0 ml IV UD PRN PRN Reason: Hypoglycemia Diagnostic Test (Pha) (Accu-Chek 1 Each Strip) 1 each FS ACHS [facility] Last Admin: 10/20/21 11:56 Dose: 1 each Documented by: Docusate Sodium (Docusate Sodium 100 Mg Capsule) 100 mg PO BID [facility] Last Admin: 10/20/21 08:37 Dose: 100 mg Documented by: Donepezil HCl (Donepezil 10 Mg Tablet) 10 mg PO QDAY [facility] Last Admin: 10/20/21 08:37 Dose: 10 mg Documented by: Famotidine (Famotidine/Pf 20 Mg/2 Ml Vial) 20 mg IV HS [facility] Last Admin: 10/19/21 21:32 Dose: 20 mg Documented by: Gabapentin (Gabapentin 300 Mg Capsule) 300 mg PO BID [facility] Last Admin: 10/20/21 08:38 Dose: 300 mg Documented by: Glucose (Dextrose 31 Gm Oral.Susp) 15 gm PO PRN PRN PRN Reason: Hypoglycemia Heparin Sodium (Porcine) (Heparin 5,000 Unit/Ml Vial) 5,000 unit SQ Q12 [facility] Last Admin: 10/20/21 08:37 Dose: 5,000 unit Documented by: Heparin Sodium (Porcine) (Heparin Flush 10 Units/Ml 5 Ml Syringe) 2 ml IV Q12 [facility] Last Admin: 10/20/21 08:39 Dose: Not Given Documented by: Dexmedetomidine HCl 400 mcg/ (Premix) 100 mls @ 6.221 mls/hr IV .Q16H5M [facility]; Protocol Last Admin: 10/20/21 10:58 Dose: 0.6 mcg/kg/hr, 18.663 mls/hr Documented by: Acetaminophen (Ofirmev) 1,000 mg in 100 mls @ 200 mls/hr IV Q8H [facility]; Protocol Last Infusion: 10/20/21 10:37 Dose: Infused Documented by: Piperacillin Sod/Tazobactam (Sod 4.5 gm/ Dextrose) 50 mls @ 100 mls/hr IV Q6H [facility]; Protocol Last Infusion: 10/20/21 09:41 Dose: Infused Documented by: Insulin Glargine (Insulin Glargine, Human 1 Unit/0.01 Ml) 15 unit SQ HS [facility] Last Admin: 10/19/21 21:32 Dose: 15 unit Documented by: Insulin Human Lispro (Insulin Lispro 1 Unit/0.01 Ml Unit) 0 unit SQ ACHS [facility]; Protocol Last Admin: 10/20/21 11:56 Dose: 4 units Documented by: Labetalol HCl (Labetalol 5 Mg/Ml Ml) 10 mg IV Q10M PRN PRN Reason: blood pressure Lactulose (Lactulose 20 Gm/30 Ml Oral.Aura) 10 gm PO DAILYP PRN PRN Reason: Constipation Metoprolol Tartrate (Metoprolol Tartrate 5 Mg/5 Ml Vial) 5 mg IV Q2HP PRN PRN Reason: Tachyarrhythmias Ondansetron HCl (Ondansetron 4 Mg/2 Ml Vial) 4 mg IV Q4HP PRN; Protocol PRN Reason: Nausea And Vomiting Last Admin: 10/16/21 04:22 Dose: 4 mg Documented by: Quetiapine Fumarate (Quetiapine 25 Mg Tablet) 25 mg PO DAILY@1700 [facility] Last Admin: 10/19/21 17:55 Dose: 25 mg Documented by: Senna (Sennosides 1 Tablet) 2 tab PO HSP PRN PRN Reason: Constipation Sertraline HCl (Sertraline 50 Mg Tablet) 50 mg PO QDAY [facility] Last Admin: 10/20/21 08:37 Dose: 50 mg Documented by: Sodium Chloride (0.9 % Sodium Chloride 10 Ml Syringe) 10 ml IV Q8 [facility] Last Admin: 10/20/21 05:54 Dose: 10 ml Documented by: Sodium Chloride (0.9 % Sodium Chloride 10 Ml Syringe) 10 ml IV UD PRN PRN Reason: FLUSH Sodium Chloride (0.9 % Sodium Chloride 10 Ml Syringe) 10 ml IV Q12 [facility] Last Admin: 10/20/21 10:54 Dose: Not Given Documented by: ABG Interpretation ABG results: 10/15/21 10/17/21 10/19/21 23:18 11:12 10:50 ABG Methemoglobin 0.3 L 0.3 L 0.1 L VBG pH 7.24 L 7.30 L 7.21 L VBG pCO2 70.8 H* 56.0 H 49.9 VBG pO2 38.0 110.2 H 106.6 H VBG HCO3 29.5 H 26.9 19.3 L VBG Total CO2 31.7 H 28.6 20.9 L VBG O2 Saturation 60.4 92.9 H 93.3 H VBG Base Excess 1 0 -8 L A/P Narrative A/P Narrative: A: #Sever Sepsis, Resolvin/ osteomyelitis Left 5th distal metatarsal -leukocytosis/fever resolved #Left 5th distal metatarsal osteomyelitis: s/p partial amputation 10/16/21 (Dr. Sutton) -WC with Peptococcus anaerobius/Streptococcus/MSSA #Acute on chronic hypoxic/hypercapnic respiratory failure: -on Bipap #b/l pulmonary infiltrates or uncertain etiology: -Chest x-ray showed increasing consolidation at the right lung base. -Pneumonia vs aspiration vs ARDS secondary to sepsis -MAUREEN and PANTHER negative for SARS-CoV-2 -MAUREEN negative for influenza A&B #KRALA on CKD III: zenon PETER from sepsis #Intermittent agitation & suspected cognitive impairment vs early Dementia: #Dysphagia: #COPD ( ) w/ chronic hypoxia: #DM 2: #Peripheral arterial disease #Essential hypertension #HFpEF: #Depression #Obesity: BMI 37 #Questionable capacity #Guarded prognosis Plan: -Transition to Zosyn for rising CRP, persistently elevated procalcitonin. Discontinue cefazolin and metronidazole. -CT chest for further evaluation of right lung base consolidation/possible pleural effusion. -Oxygen supplementation (wean as able) -Follow all cultures, follow CRP and procalcitonin. -prn lasix -Seroquel HS and Precedex prn for agitation. / Restraints as needed for violent behaviors. -Lantus and SSI -Duoneb Q6 hrs and albuterol prn. -Hold home Metformin, Dapagliflozin, Toprol/Losartan, Chlorthalidone/Spironolactone/Torsemide. -Continue Aspirin, Gabapentin. -Continue marshall catheter for accurate urine output. -PICC line placement for anticipated prolonged IV antibiotics treatment of osteomyelitis. -Podiatry following-Dr. Sutton. -PT following. -Diet per speech recommendations. -Monitor nutritional status, consider nutritional support. -Disposition: Probably SNF, probably 6 weeks of IV antibiotic treatment for osteomyelitis. -ppx: heparin SQ / H2 Code status: DNR/DNI Time Spent With Patient Time: Total time spent is greater than 50% in coordination of care (as documented) at patient's floor/unit and/or counseling patient:
[2021-10-20] MEDS ORDERED: QUEtiapine 25 MG TABLET PO SCH (17:00)
[2021-10-20] MEDS: QUEtiapine 25 MG TABLET PO SCH (17:14)
[2021-10-20] MEDS ORDERED: 0.9 % SODIUM CHLORIDE 500 ML IV SCH (18:00)
[2021-10-20] MEDS: FAMOTIDINE/PF 20 MG/2 ML VIAL IV SCH (21:26)
[2021-10-20] MEDS: INSULIN GLARGINE, HUMAN 1 UNIT/0.01 ML SQ SCH (21:27)
[2021-10-21] MEDS: PIPERACILLIN SODIUM/TAZOBACTAM 4.5 GM in DEXTROSE 5% IN WATER 50 ML IV SCH ×3 (00:42→12:20)
[2021-10-21] MEDS: IPRATROPIUM/ALBUTEROL 3 ML AMPUL.NEB NEB SCH ×2 (00:47→07:10)
[2021-10-21] MEDS: ACETAMINOPHEN 1,000 MG/100 ML BAG IV SCH ×2 (01:23→10:30)
[2021-10-21] MEDS: DEXMEDETOMIDINE 400 MCG in PREMIX 1 BAG IV SCH ×2 (02:12→08:24)
[2021-10-21] MEDS: 0.9 % SODIUM CHLORIDE 10 ML SYRINGE IV SCH ×3 (05:17→12:12)
[2021-10-21 06:56] LABS: Basophils # (Auto) 0.05 K/mcL (0.00-0.30); Basophils % (Auto) 0.4 % (0.0-2.0); Eosinophils # (Auto) 0.31 K/mcL (0.00-0.70); Eosinophils % (Auto) 2.7 % (0.0-7.0); Hematocrit 35.3 % (40.1-51.0); Hemoglobin 10.4 g/dL (13.7-17.5); Lymphocytes # (Auto) 0.89 K/mcL (1.50-4.80); Lymphocytes % (Auto) 7.9 % (15.5-49.0); Mean Cell Volume 93.9 fL (80.0-100.0); Mean Corpuscular HGB Conc 29.5 g/dL (31.0-36.0); Mean Platelet Volume 11.6 fL (7.4-10.4); Monocytes # (Auto) 0.87 K/mcL (0.10-0.90); Monocytes % (Auto) 7.7 % (1.0-12.0); Neutrophils % (Auto) 81.3 % (38.0-78.0); Platelet Count 200 K/mcL (140-440); RBC 3.76 M/mcL (4.63-6.08); Red Cell Distribution Width 14.7 % (11.5-14.5); WBC 11.3 K/mcL (4.5-11.0)
[2021-10-21 07:42] LABS: ALT/SGPT 7 U/L (<40); AST/SGOT 10 U/L (<40); Albumin 2.9 gm/dL (3.2-5.2); Albumin/Globulin Ratio 0.9 (1.0-2.3); Alkaline Phosphatase 46 U/L (39-117); Bilirubin,Direct < 0.2 mg/dL (0-0.3); Bilirubin,Total 0.2 mg/dL (0.1-1.0); Blood Urea Nitrogen 46 mg/dL (8-23); Calcium 8.7 mg/dL (8.6-10.4); Carbon Dioxide 22 mmol/L (22-30); Chloride 114 mmol/L (96-108); Globulin 3.3 gm/dL (2.2-3.7); Glomerular Filtration Rate 43; Glucose 149 mg/dL (70-105); Lactate Dehydrogenase 169 U/L (135-225); Phosphorous 3.6 mg/dL (2.5-4.5); Triglycerides 160 mg/dL (<150); Uric Acid 8.4 mg/dL (2.5-8.0)
[2021-10-21] MEDS: INSULIN LISPRO 1 UNIT/0.01 ML UNIT SQ SCH ×2 (07:46→11:56)
[2021-10-21] MEDS ORDERED: HYDROCHLOROTHIAZIDE 25 MG TABLET PO ONE (07:48)
--- NOTE | 2021-10-21 07:52 | Internal Med Progress Note ---
SUBJECTIVE Subjective Patient information: Note initiated : 10/21/21 at 7:43 am Service Date, if different from initiated Date: [] Patient: Yaakov Jacobson 81 y/o M admitted on 10/15/21 for Shortness of breath. Chief Complaint: [] Principal diagnosis: Osteomyelitis Interval history: Mr. Jacobson is a 81 year old male with a history of hypertension, type 2 diabetes mellitus, COPD with chronic hypoxia, peripheral vascular disease presented to an outside hospital for confusion. Per available documents and report from the emergency department provider, the patient appeared to be septic at that time. The patient was given a dose of ceftriaxone and referred to [facility] emergency department. Upon arrival, the patient appeared to be septic, he also had an increased oxygen requirement, arterial blood gas was consistent with respiratory acidosis. The patient was started on broad-spectrum antibiotics, IV fluids, BiPAP and oxygen supplementation. The cause of sepsis is felt to be a left foot wound that was draining purulent fluid. Chest x-ray showed bilateral pulmonary infiltrates. CODE STATUS was discussed in the emergency department, the patient wishes to be DNR/DNI. Hospital medicine was asked to admit the patient for further management. In the emergency department, the patient was unable to provide a history due to encephalopathy likely secondary to sepsis. He appeared to be breathing comfortably with BiPAP, vitals had improved after IV fluid and broad-spectrum antibiotics. 10/16 CT of the left foot was consistent with osteomyelitis of the distal left fifth metatarsal, podiatry consulted and performed a partial amputation of the left fifth metatarsal. On broad spectrum antibiotics with Vancomycin, Cefepime, Flagy.. Awaiting blood and bone culture results. Sepsis physiology resolving however continues on BiPAP for respiratory failure. PANTHER was negative. Concern for dysphagia, speech consulted. 10/17 Overnight started precedex for agitation. Otherwise Improving slowly, VBG shows improvement in CO2 retention and respiratory acidosis. WBC trending down, renal function about the same with creatinine of 1.6. The patient is able to engage in short conversations, does not feel short of breath. Lantus increased to 15 units HS for morning hyperglycemia, SSI continued at medium dose. Continues NPO pending speech therapy evaluation. Wound swab culture growing polymicrobial St aph, Strep, and Peptococcus. Surgical bone cultures pending. 10/18 Severe agitation today necessitating restraints, restarted Precedex and received Zyprexa IM prn. The patient is behaving violently toward staff, says he wants to leave the hospital but clearly not safe to do so. The patient does not have capacity at this time. Surgical cultures pending. Blood cultures showing no growth to date. PICC placement ordered for prolonged IV antibiotic treatment of foot infection complicated by osteomyelitis. Deescalated antibiotics to Cefazolin and Metronidazole. Resumed IV fluid due to low urine output and increase in creatinine. 10/19 Developed a short period of atrial fibrillation with RVR before converting back to normal sinus rhythm. Bone culture growing Peptostreptococcus anaerobius. Brie l function improving, discontinued IV fluid. Continues in restraints for agitation that is worse at night, continues on Precedex as needed for agitation. Started Seroquel, will try to wean off precedex today. CO2 retention improved. More interactive and pleasant during the daytime. 10/20 Transition antibiotics to Zosyn IV as CRP is increasing and procalcitonin markedly elevated. Chest x-ray showed increasing consolidation at the right lung base. CT chest without contrast ordered for further evaluation. Renal function improving, continues on BiPAP. ABG showed mild acidosis with a pH of 7.32, PCO2 47, PO2 75 on BiPAP 20/5 and FiO2 30. Continues on Precedex as needed for severe intermittent agitation. Appears to be volume overloaded, Lasix 60 mg once IV. 10/21 Patient partially sedated on Precedex. But arousable. Bradycardic, will stop Precedex. Review of systems: Difficult to obtain on BiPAP Constitutional Vitals: Vital Signs Temp Pulse Resp BP Pulse Ox 96.8 F L 49 L 18 142/73 96 10/21/21 00:22 10/21/21 07:15 10/21/21 07:15 10/21/21 06:01 10/21/21 07:15 Period Temp Pulse Resp BP Sys/Wood Pulse Ox Last 24 Hr 96.2 F-96.9 F 45-65 14-40 104-182/57-138 91-100 Intake and Output 10/20/21 10/21/21 10/21/21 21:59 05:59 13:59 Intake Total 500 278 50 Output Total 1025 425 Balance -525 -147 50 Weight 124.693 kg Intake & Output: Intake & Output 10/20/21 10/21/2110/21/22 21:59 05:59 13:59 Intake Total 500 278 50 Output Total 1025 425 Balance -525 -147 50 Weight 124.693 kg Intake: IV 300 278 50 Precedex 400 Mcg/100 ml 100 128 Dextrose 400 Mcg In Premix 1 Bag @ 0.2 MCG/KG/HR 6.221 mls/ hr IV .Q16H5M [facility] Rx#:[id number] Zosyn 4.5 gm In Dextrose 5% in 100 50 50 Water 50 ml @ 100 mls/hr IV Q6H [facility] Rx#:[id number] Oral 200 Output: Urine Catheter Amount 1025 225 Stool 200 Other: Meal Dinner Percent of Meal Consumed 25% Feeding Ability Total Assistance Urine Appearance Clear Cloudy Urine Color Dark Yellow Dark Yellow Urine Odor Strong Normal Stool Size Large Stool Color Brown Stool Consistency Liquid # Bowel Movements 1 # of times incontinent of 1 Bowels Exam: General: Partially sedated but awakens, No acute Distress, obese Eyes/N/T: EOMI, Head/Neck: neck supple, CV: Bradycardia sinus, No murmurs, Pulm: Clear b/l, no wheezing/rhonchi/rales Abd: soft, nontender, +BS x4 Ext: no clubbing/cyanosis, anasarca Neuro: Awakens, no focal deficits, moves all extremities, Skin: warm/dry OBJ DATA Labs CBC & Chem 7: 10/21/21 05:28 10/21/21 05:28 Labs: Abnormal Lab Results 10/21/21 10/21/21 10/20/21 05:28 05:28 05:25 WBC 11.3 H RBC 3.76 L Hgb 10.4 L Hct 35.3 L MCHC 29.5 L RDW 14.7 H MPV 11.6 H Neut % (Auto) 81.3 H Lymph % (Auto) 7.9 L Lymph # (Auto) 0.89 L Seg Neutrophils % Lymphocytes % Absolute Neutrophils 9.16 H RBC Morphology Polychromasia Hypochromasia Anisocytosis ABG Methemoglobin VBG pH VBG pO2 VBG HCO3 VBG Total CO2 VBG O2 Saturation VBG Base Excess Carboxyhemoglobin Total Hemoglobin Sodium 148 H Chloride 114 H Carbon Dioxide BUN 46 H Creatinine 1.5 H Glucose 149 H Uric Acid 8.4 H Calcium Magnesium 2.6 H GGT 64 H Lactate Dehydrogenase C-Reactive Protein 6.50 H Albumin 2.9 L Albumin/Globulin Ratio 0.9 L Triglycerides 160 H Procalcitonin 3.65 H 10/20/21 10/20/21 10/19/21 05:25 05:25 10:50 WBC RBC 3.77 L Hgb 10.7 L Hct 36.4 L MCHC 29.4 L RDW 14.8 H MPV 11.4 H Neut % (Auto) Lymph % (Auto) Lymph # (Auto) Seg Neutrophils % Lymphocytes % 8 L Absolute Neutrophils RBC Morphology Polychromasia Hypochromasia Anisocytosis ABG Methemoglobin 0.1 L VBG pH 7.21 L VBG pO2 106.6 H VBG HCO3 19.3 L VBG Total CO2 20.9 L VBG O2 Saturation 93.3 H VBG Base Excess -8 L Carboxyhemoglobin 5.0 H Total Hemoglobin 8.2 L Sodium Chloride 114 H Carbon Dioxide 19 L BUN 49 H Creatinine 1.5 H Glucose 129 H Uric Acid 8.9 H Calcium Magnesium 2.9 H GGT Lactate Dehydrogenase 237 H C-Reactive Protein 8.80 H Albumin 2.9 L Albumin/Globulin Ratio 0.8 L Triglycerides 185 H Procalcitonin 10/19/21 10/19/21 10/18/21 05:31 05:30 05:19 WBC RBC 3.54 L Hgb 10.0 L Hct 33.8 L MCHC 29.6 L RDW 14.9 H MPV 11.4 H Neut % (Auto) Lymph % (Auto) Lymph # (Auto) Seg Neutrophils % Lymphocytes % 8 L Absolute Neutrophils RBC Morphology Abnormal A Polychromasia Few A Hypochromasia Few A Anisocytosis 1+ A ABG Methemoglobin VBG pH VBG pO2 VBG HCO3 VBG Total CO2 VBG O2 Saturation VBG Base Excess Carboxyhemoglobin Total Hemoglobin Sodium Chloride 114 H 112 H Carbon Dioxide BUN 55 H 56 H Creatinine 1.8 H 1.9 H Glucose 127 H 133 H Uric Acid 9.4 H 9.7 H Calcium 8.4 L Magnesium 2.8 H 2.8 H GGT Lactate Dehydrogenase C-Reactive Protein Albumin 2.7 L 2.9 L Albumin/Globulin Ratio 0.8 L 0.8 L Triglycerides 168 H 168 H Procalcitonin 10/18/21 05:19 WBC RBC Hgb Hct MCHC RDW MPV Neut % (Auto) Lymph % (Auto) Lymph # (Auto) Seg Neutrophils % 86 H Lymphocytes % 3 L Absolute Neutrophils RBC Morphology Polychromasia Hypochromasia Anisocytosis ABG Methemoglobin VBG pH VBG pO2 VBG HCO3 VBG Total CO2 VBG O2 Saturation VBG Base Excess Carboxyhemoglobin Total Hemoglobin Sodium Chloride Carbon Dioxide BUN Creatinine Glucose Uric Acid Calcium Magnesium GGT Lactate Dehydrogenase C-Reactive Protein Albumin Albumin/Globulin Ratio Triglycerides Procalcitonin Meds: Medications Albuterol Sulfate (Albuterol Sulfate 2.5 Mg/3 Ml Nebulizer) 2.5 mg NEB Q2HP PRN PRN Reason: Shortness Of Breath Albuterol/Ipratropium (Ipratropium/Albuterol 3 Ml Ampul.Neb) 3 ml NEB Q6HRT [facility] Last Admin: 10/21/21 07:10 Dose: 3 ml Documented by: Aspirin (Aspirin 81 Mg Tab.Chew) 81 mg PO QDAY [facility] Last Admin: 10/20/21 08:37 Dose: 81 mg Documented by: Chlorhexidine Gluconate (Chlorhexidine Gluconate 1 Ml Oral.Aura) 15 ml SWABMOUTH BID [facility] Last Admin: 10/20/21 21:28 Dose: 15 ml Documented by: Dextrose (Dextrose 50% 50 Ml Vial) 0 ml IV UD PRN PRN Reason: Hypoglycemia Diagnostic Test (Pha) (Accu-Chek 1 Each Strip) 1 each FS ACHS [facility] Last Admin: 10/21/21 07:37 Dose: 1 each Documented by: Docusate Sodium (Docusate Sodium 100 Mg Capsule) 100 mg PO BID [facility] Last Admin: 10/20/21 21:09 Dose: Not Given Documented by: Donepezil HCl (Donepezil 10 Mg Tablet) 10 mg PO QDAY [facility] Last Admin: 10/20/21 08:37 Dose: 10 mg Documented by: Famotidine (Famotidine/Pf 20 Mg/2 Ml Vial) 20 mg IV HS [facility] Last Admin: 10/20/21 21:26 Dose: 20 mg Documented by: Gabapentin (Gabapentin 300 Mg Capsule) 300 mg PO BID [facility] Last Admin: 10/20/21 21:26 Dose: 300 mg Documented by: Glucose (Dextrose 31 Gm Oral.Susp) 15 gm PO PRN PRN PRN Reason: Hypoglycemia Heparin Sodium (Porcine) (Heparin 5,000 Unit/Ml Vial) 5,000 unit SQ Q12 [facility] Last Admin: 10/20/21 21:27 Dose: 5,000 unit Documented by: Heparin Sodium (Porcine) (Heparin Flush 10 Units/Ml 5 Ml Syringe) 2 ml IV Q12 [facility] Last Admin: 10/20/21 21:10 Dose: Not Given Documented by: Dexmedetomidine HCl 400 mcg/ (Premix) 100 mls @ 6.221 mls/hr IV .Q16H5M [facility]; Protocol Last Titration: 10/21/21 03:30 Dose: 0.5 mcg/kg/hr, 15.553 mls/hr Documented by: Acetaminophen (Ofirmev) 1,000 mg in 100 mls @ 200 mls/hr IV Q8H [facility]; Protocol Last Infusion: 10/21/21 02:14 Dose: Infused Documented by: Piperacillin Sod/Tazobactam (Sod 4.5 gm/ Dextrose) 50 mls @ 100 mls/hr IV Q6H [facility]; Protocol Last Infusion: 10/21/21 06:06 Dose: Infused Documented by: Sodium Chloride (Sodium Chloride 0.9%) 500 mls @ 20 mls/hr IV .Q24H [facility] Last Admin: 10/20/21 18:08 Dose: 20 mls/hr Documented by: Insulin Glargine (Insulin Glargine, Human 1 Unit/0.01 Ml) 15 unit SQ [facility] Last Admin: 10/20/21 21:27 Dose: 15 unit Documented by: Insulin Human Lispro (Insulin Lispro 1 Unit/0.01 Ml Unit) 0 unit SQ ACHS [facility]; Protocol Last Admin: 10/20/21 21:16 Dose: Not Given Documented by: Labetalol HCl (Labetalol 5 Mg/Ml Ml) 10 mg IV Q10M PRN PRN Reason: blood pressure Lactulose (Lactulose 20 Gm/30 Ml Oral.Aura) 10 gm PO DAILYP PRN PRN Reason: Constipation Metoprolol Tartrate (Metoprolol Tartrate 5 Mg/5 Ml Vial) 5 mg IV Q2HP PRN PRN Reason: Tachyarrhythmias Ondansetron HCl (Ondansetron 4 Mg/2 Ml Vial) 4 mg IV Q4HP PRN; Protocol PRN Reason: Nausea And Vomiting Last Admin: 10/16/21 04:22 Dose: 4 mg Documented by: Quetiapine Fumarate (Quetiapine 25 Mg Tablet) 25 mg PO DAILY@1700 [facility] Last Admin: 10/20/21 17:14 Dose: 25 mg Documented by: Senna (Sennosides 1 Tablet) 2 tab PO HSP PRN PRN Reason: Constipation Sertraline HCl (Sertraline 50 Mg Tablet) 50 mg PO QDAY [facility] Last Admin: 10/20/21 08:37 Dose: 50 mg Documented by: Sodium Chloride (0.9 % Sodium Chloride 10 Ml Syringe) 10 ml IV Q8 [facility] Last Admin: 10/21/21 05:17 Dose: Not Given Documented by: Sodium Chloride (0.9 % Sodium Chloride 10 Ml Syringe) 10 ml IV UD PRN PRN Reason: FLUSH Sodium Chloride (0.9 % Sodium Chloride 10 Ml Syringe) 10 ml IV Q12 [facility] Last Admin: 10/20/21 21:28 Dose: Not Given Documented by: ABG Interpretation ABG results: 10/15/21 10/17/21 10/19/21 23:18 11:12 10:50 ABG Methemoglobin 0.3 L 0.3 L 0.1 L VBG pH 7.24 L 7.30 L 7.21 L VBG pCO2 70.8 H* 56.0 H 49.9 VBG pO2 38.0 110.2 H 106.6 H VBG HCO3 29.5 H 26.9 19.3 L VBG Total CO2 31.7 H 28.6 20.9 L VBG O2 Saturation 60.4 92.9 H 93.3 H VBG Base Excess 1 0 -8 L A/P Narrative A/P Narrative: A: #Sever Sepsis, Resolvin/2 osteomyelitis Left 5th distal metatarsal -leukocytosis/fever resolved #Left 5th distal metatarsal osteomyelitis: s/p partial amputation 10/16/21 (Dr. Sutton) -WC with Peptococcus anaerobius/Streptococcus/MSSA #Acute on chronic hypoxic/hypercapnic respiratory failure: -on Bipap #RLL PNA: ?Aspiration -MAUREEN and PANTHER negative for SARS-CoV-2 -MAUREEN negative for influenza A&B #KARLA on CKD III: zenon NOBLESN from sepsis. improved #Intermittent agitation & suspected cognitive impairment vs early Dementia: #Oropharyngeal Dysphagia: #COPD (2L NC @home) w/chronic hypoxia: #DM 2: #Peripheral arterial disease #Essential hypertension #HFpEF: #Depression #Obesity: BMI 37 #VALENTE on CPAP: not compliant with cpap at home #Questionable capacity #Guarded prognosis Plan: -Transitioned to Zosyn for rising CRP, persistently elevated procalcitonin. Discontinue cefazolin and metronidazole. -Oxygen supplementation (wean as able) -nocturnal cpap -Follow all cultures, follow CRP and procalcitonin. -prn lasix -d5w for hypernatremia -Seroquel HS and Precedex prn for agitation. / Restraints as needed for violent behaviors. -Lantus and SSI -Hold home Metformin, Dapagliflozin, Toprol/Losartan, Chlorthalidone/Spironolactone/Torsemide. -Continue Aspirin, Gabapentin. -Continue marshall catheter for accurate urine output. -PICC line placement for anticipated prolonged IV antibiotics treatment of osteomyelitis. -Podiatry following-Dr. Sutton. -PT following. -Diet per ST -Monitor nutritional status, consider nutritional support. -Disposition: Probably SNF, probably 6 weeks of IV antibiotic treatment for osteomyelitis. -ppx: heparin SQ / H2 Code status: DNR/DNI Time Spent With Patient Time: Total time spent is greater than 50% in coordination of care (as documented) at patient's floor/unit and/or counseling patient:
[2021-10-21] MEDS ORDERED: IPRATROPIUM/ALBUTEROL 3 ML AMPUL.NEB NEB PRN (07:53)
[2021-10-21] MEDS ORDERED: DEXTROSE 5% IN WATER 1,000 ML IV SCH (08:00)
[2021-10-21] MEDS: ASPIRIN 81 MG TAB.CHEW PO SCH (08:21)
[2021-10-21] MEDS: GABAPENTIN 300 MG CAPSULE PO SCH (08:22)
[2021-10-21] MEDS: DONEPEZIL 10 MG TABLET PO SCH (08:22)
[2021-10-21] MEDS: HEPARIN 5,000 UNIT/ML VIAL SQ SCH (08:22)
[2021-10-21] MEDS: SERTRALINE 50 MG TABLET PO SCH (08:22)
[2021-10-21] MEDS: DOCUSATE SODIUM 100 MG CAPSULE PO SCH ×2 (08:23→08:54)
[2021-10-21] MEDS: CHLORHEXIDINE GLUCONATE 1 ML ORAL.SOL SWABMOUTH SCH (08:55)
[2021-10-21] MEDS ORDERED: BUDESONIDE 0.5 MG/2 ML AMPUL.NEB NEB SCH (09:00)
[2021-10-21] MEDS ORDERED: FUROSEMIDE 40 MG/4 ML VIAL IV ONE ×3 (09:32→13:07)
[2021-10-21] MEDS ORDERED: ALBUMIN HUMAN 12.5 GM/50 ML BAG IV ONE (09:32)
[2021-10-21] MEDS ORDERED: OLANZapine 5 MG TABLET PO PRN (10:13)
[2021-10-21] MEDS ORDERED: hydrALAZINE 20 MG/ML VIAL IV PRN (12:11)
[2021-10-21] MEDS ORDERED: 0.9 % SODIUM CHLORIDE 250 ML IV SCH (13:15)
[2021-10-21] MEDS ORDERED: NITROGLYCERIN/D5W 25 MG/250 ML BOTTLE IV SCH (13:15)
--- NOTE | 2021-10-21 13:22 | XRay Report ---
INDICATION: Increased oxygen demand TECHNIQUE: AP portable upright chest x-ray COMPARISON: Previous chest x-rays dated 10/19/2021, 10/15/2021. Previous chest CT scan dated 10/20/2021 FINDINGS: Lungs:Mid and upper lungs remain improved since 10/15/2021. Bibasilar consolidation and volume loss. Small pleural effusions are demonstrated on chest CT scan but not well visualized on plain film examination. Examination is essentially unchanged since 10/19/2021. No new abnormalities. IMPRESSION: 1. Bibasilar consolidation and volume loss, right worse than left 2. Elevated right hemidiaphragm 3. Small pleural effusions are not well visualized 4. No interval change since 10/19/2021 Interpreted and Authenticated by: Cristian Rowland 10/21/21
[2021-10-21] MEDS ORDERED: morphine 2 MG/ML VIAL IV PRN (13:42)
[2021-10-21] MEDS ORDERED: LORazepam 2 MG/ML VIAL IV PRN (13:42)
--- NOTE | 2021-10-21 13:47 | Event Note ---
Event Note Event Note: Patient quickly became hypoxic and hypotensive. Required BiPAP at FiO2 100%. Made some progress on the oxygen saturation. Stat chest x-ray similar to yesterday. No pneumothorax, bibasilar consolidation more on the right similar to yesterday. No florid pulmonary edema. ABG hypercapnic respiratory failure with acidosis. Patient tachypneic. Patient DNR/DNI. Adjusted BiPAP settings. Ordered a CTA to rule out PE however however patient continued to rapidly decline not ventilating moving no air. Talked with at the beginning of the situation and she asked when he would likely pass and I said we are currently working to try to get him through this acute episode and do not know at this time. However, not too long after patient declined further and I had another discussion with family and we switched him over to comfort care and did note that she had been expecting this. We transitioned him to a comfort care only measure.
[2021-10-21] MEDS ORDERED: LORazepam 2 MG/ML VIAL ONE (13:52)
[2021-10-21] MEDS ORDERED: morphine 4 MG/ML VIAL ONE (13:52)
--- NOTE | 2021-10-21 13:57 | Death Note ---
Discharge Sum: Prov Provider Patient information: Note initiated : 10/21/21 at 1:56 pm Service Date, if different from initiated Date: [] Patient: Yaakov Jacobson 81 y/o M admitted on 10/15/21 for Shortness of breath. Chief Complaint: [] Primary care physician: Keshav Crow Consults: 10/15/21 Consult to Physician [CONS] Stat Comment: Consulting Provider: Diomedes Queen Reason For Exam: Physician to Consult 10/16/21 08:45 Consult to Physician [CONS] Routine Comment: Consulting Provider: Cedrick Sutton Reason For Exam: Physician to Consult Discharge Sum: Summary Date and Time Date of admission: 10/15/21 22:46 Date of : 10/21/21 Time of : 13:52 Summary Details: Interval history: Mr. Jacobson is a 81 year old male with a history of hypertension, type 2 diabetes mellitus, COPD with chronic hypoxia, peripheral vascular disease presented to an outside hospital for confusion. Per available documents and report from the emergency department provider, the patient appeared to be septic at that time. The patient was given a dose of ceftriaxone and referred to [facility] emergency department. Upon arrival, the patient appeared to be septic, he also had an increased oxygen requirement, arterial blood gas was consistent with respiratory acidosis. The patient was started on broad-spectrum antib iotics, IV fluids, BiPAP and oxygen supplementation. The cause of sepsis is felt to be a left foot wound that was draining purulent fluid. Chest x-ray showed bilateral pulmonary infiltrates. CODE STATUS was discussed in the emergency department, the patient wishes to be DNR/DNI. Hospital medicine was asked to admit the patient for further management. In the emergency department, the patient was unable to provide a history due to encephalopathy likely secondary to sepsis. He appeared to be breathing comfortably with BiPAP, vitals had improved after IV fluid and broad-spectrum antibiotics. 10/16 CT of the left foot was consistent with osteomyelitis of the distal left fifth metatarsal, podiatry consulted and performed a partial amputation of the left fifth metatarsal. On broad spectrum antibiotics with Vancomycin, Cefepime, Flagy.. Awaiting blood and bone culture results. Sepsis physiology resolving however continues on BiPAP for respiratory failure. PANTHER was negative. Concern for dysphagia, speech consulted. 10/17 Overnight started precedex for agitation. Otherwise Improving slowly, VBG shows improvement in CO2 retention and respiratory acidosis. WBC trending down, renal function about the same with creatinine of 1.6. The patient is able to engage in short conversations, does not feel short of breath. Lantus increased to 15 units HS for morning hyperglycemia, SSI continued at medium dose. Continues NPO pending speech therapy evaluation. Wound swab culture growing polymicrobial Staph, Strep, and Peptococcus. Surgical bone cultures pending. 10/18 Severe agitation today necessitating restraints, restarted Precedex and received Zyprexa IM prn. The patient is behaving violently toward staff, says he wants to leave the hospital but clearly not safe to do so. The patient does not have capacity at this time. Surgical cultures pending. Blood cultures showing no growth to date. PICC placement ordered for prolonged IV antibiotic treatment of foot infection complicated by osteomyelitis. Deescalated antibiotics to Cefazolin and Metronidazole. Resumed IV fluid due to low urine output and increase in creatinine. 10/19 Developed a short period of atrial fibrillation with RVR before converting back to normal sinus rhythm. Bone culture growing Peptostreptococcus anaerobius. Renal function improving, discontinued IV fluid. Continues in restraints for agitation that is worse at night, continues on Precedex as needed for agitation. Started Seroquel, will try to wean off precedex today. CO2 retention improved. More interactive and pleasant during the daytime. 10/20 Transition antibiotics to Zosyn IV as CRP is increasing and procalcitonin markedly elevated. Chest x-ray showed increasing consolidation at the right lung base. CT chest without contrast ordered for further evaluation. Renal function improving, continues on BiPAP. ABG showed mild acidosis with a pH of 7.32, PCO2 47, PO2 75 on BiPAP 20/5 and FiO2 30. Continues on Precedex as needed for severe intermittent agitation. Appears to be volume overloaded, Lasix 60 mg once IV. 10/21 Patient partially sedated on Precedex. But arousable. Bradycardic, will stop Precedex. Event Note: Patient quickly became hypoxic and hypertensive. Required BiPAP at FiO2 100%. Stat chest x-ray similar to yesterday. No pneumothorax, bibasilar consolidation more on the right similar to yesterday. No florid pulmonary edema but some cephalization. lasix ordered ABG hypercapnic respiratory failure with acidosis. Patient tachypneic. Patient DNR/DNI. Adjusted BiPAP settings. Ordered a CTA to rule out PE however however patient continued to rapidly decline not ventilating moving no air, then had a second discussion with family. Talked with at the beginning of the situation and she asked when he would likely pass and I said we are currently working to try to get him through this acute episode and do not know at this time. However, not too long after patient declined further and I had another discussion with family and we switched him over to comfort care and did note that she had been expecting this. We transitioned him to a comfort care only measure. Time of 1352. A: #Sever Sepsis, Resolvin/2 osteomyelitis Left 5th distal metatarsal #Left 5th distal metatarsal osteomyelitis: s/p partial amputation 10/16/21 (Dr. Sutton) - withPeptococcus anaerobius/Streptococcus/MSSA #Acute on chronic hypoxic/hypercapnic respiratory failure: -on Bipap #RLL PNA: ?Aspiration -MAUREEN and PANTHER negative for SARS-CoV-2 -MAUREEN negative for influenza A&B #KARLA on CKD III: zenon PETER from sepsis. improved #Intermittent agitation & suspected cognitive impairment vs early Dementia: #Oropharyngeal Dysphagia: #COPD (2L NC @home) w/chronic hypoxia: #DM 2: #Peripheral arterial disease #Essential hypertension #HFpEF: #Depression #Obesity: BMI 37 #VALENTE on CPAP: not compliant with cpap at home #Questionable capacity Additional Data Attending physician: Diomedes Queen MD Was code activated?: No Autopsy requested?: No
--- NOTE | 2021-10-21 18:38 | EKG ---
[facility] Test Date: 2021-10-21 Pat Name: Yaakov Jacobson Department: ICU Room: 120B Gender: Male Unstacker: : 1940 Requested By: Yoni Qiu Order Number: [id number] Reading MD: Osman Waters Measurements Intervals [place] Rate: 104 P: IA: QRS: -64 QRSD: 103 T: 5 QT: 342 QTc: 450 Interpretive Statements Atrial fibrillation Borderline low voltage, extremity leads Consider anterior infarct Minimal ST depression, lateral leads Electronically Signed On 10-21-2021 18:38:13 PST by Osman Waters /[id number]/[email or web address]/[id number]
== END 2021-10-21 15:10 | disposition expired | DRG 853 ==
LOC: ED 16:17 → ICU 22:46
PROVIDERS: ADMIT Internal Medicine; ATTEND Internal Medicine